=== PATIENT | female | born 1950 | race Caucasian/White ===

== ENCOUNTER → 2017-03-12 | Outpatient (CLI) | payer OTHER ==
[2017-03-12 17:59] LABS: HEPATITIS B AB NEG
== END | disposition home or self-care (01) ==
LOC: C.LAB1850 15:49
PROVIDERS: ATTEND Nurse Practitioner Family
DX: Z77.21 Contact with and (suspected) exposure to potentially hazardous body fluids (principal)

== ENCOUNTER 2017-06-19 09:07 | Emergency (ER) | payer BC, OTHER ==
[~2017-06-19] VITALS: Ht 162.6 cm; Wt 89.0 kg
[2017-06-19 09:09] VITALS: TEMP 36.4; Ht 162.6 cm; Wt 89.0 kg
[2017-06-19] MEDS ORDERED: ACETAMINOPHEN 500 MG TAB PO STA (09:24)
[2017-06-19] MEDS ORDERED: MECLIZINE HCL 25 MG TAB PO STA (09:24)
[2017-06-19 09:37] VITALS: O2SAT 96
--- NOTE | 2017-06-19 09:44 | EMERGENCY ROOM VISIT NOTE ---
History Report prepared by Nixon: Ceasar Keith Under the Supervision of: Dr. Eligio Rowland D.O. First contact with patient: 09:12 Chief Complaint: DIZZY Stated Complaint: DIZZINESS, HEADACHE, L ARM PAIN Nursing Triage Summary: c/o dizziness like the room spinning with pain in left arm and above left eye History of Present Illness The patient is a 66 year old female with a history of hypertension who presents to the Emergency Room with complaints of episodes of dizziness that started 2 days ago. She states that 2 days ago upon waking, she turned over and everything "started to move" on her, and she became very dizzy. The patient states that the dizziness went away rather quickly, but then yesterday the patient states that while at work, she bent over for a bit, and when she stood back up, she got very dizzy and lightheaded, and states that she "appeared drunk ". She notes that she had to stand up still for a while for the symptoms to go away, but afterward, she says that she had a headache. The patient states that she felt okay last night and this morning, but while she was brushing her teeth this morning, the dizziness came back. She notes that she has never had anything like this before, and has never had vertigo in the past. The patient adds that she has had some pain in her left arm today, and her head has "felt funny" the last 2 days. She notes a bit of nausea as well. The patient denies any fevers, chills or vomiting. She notes no history of TIA, stroke, or cancer. The patient does not drink alcohol or use tobacco products. Source of History: patient Onset: 2 days ago Position: other (global - dizziness) Quality: other (everything moving on her) Timing: other (episodes) Associated Symptoms: + headache, + nausea, No fevers, No chills, No vomiting Note: Associated symptoms: Lightheadedness. Head feels "funny". Review of Systems See HPI for pertinent positives & negatives. A total of 10 systems reviewed and were otherwise negative. Past Medical & Surgical Medical Problems: (1) HLD (hyperlipidemia) (2) HTN (hypertension) Family History No pertinent family history Social History Smoking Status: Never Smoker Smokeless Tobacco Use: No Alcohol Use: none Marital Status: Housing Status: lives with family Occupation Status: employed Current/Historical Medications Scheduled Atenolol (Atenolol), 25 MG PO DAILY Felodipine (Plendil), 5 MG PO DAILY Meclizine HCl (Meclizine 25), 25 MG PO Q8 Ranitidine (Zantac), 150 MG PO BID Simvastatin (Zocor), 10 MG PO QPM Allergies Coded Allergies: Lisinopril (Unverified Allergy, Unknown, ., 06/19/17) Physical Exam Vital Signs Date Time Temp Pulse Resp B/P (MAP) Pulse Ox O2 Delivery O2 Flow Rate FiO2 06/19/17 11:46 78 16 98/50 99 06/19/17 09:37 54 151/71 57 159/82 59 177/70 06/19/17 09:37 96 Room Air 06/19/17 09:33 55 06/19/17 09:09 36.4 67 16 156/73 98 Physical Exam GENERAL: Patient is awake, alert, and in no acute distress. Patient is resting comfortably and showing no signs of anxiety EYES: The conjunctivae are clear. The pupils are round and reactive. EARS, NOSE, MOUTH AND THROAT: The nose is without any evidence of any deformity. Mucous membranes are moist tongue is midline. TM's are clear bilaterally. NECK: The neck is nontender and supple. RESPIRATORY: Normal respiratory effort is noted there is no evidence of wheezing rhonchi or rales CARDIOVASCULAR: Regular rate and rhythm noted there no murmurs rubs or gallops normal S1 normal S2 GASTROINTESTINAL: The abdomen is soft. Bowel sounds are present in all quadrants. Abdomen is nontender MUSCULOSKELETAL/EXTREMITIES: There is no evidence of gross deformity full range of motion is noted in the hips and shoulders SKIN: There is no obvious evidence of any rash. There are no petechiae, pallor or cyanosis noted. NEUROLOGIC: Patient is awake alert and oriented x3 strength is symmetric patellar reflexes are 2+ bilaterally Medical Decision & Procedures ER Provider Diagnostic Interpretation: Radiology results as stated below per my review and radiologist interpretation: HEAD WITHOUT CONTRAST (CT) CT DOSE: 614.27 mGy.cm HISTORY: Mental status change EVALUATE ALTERED MENTAL STATUS/WEAKNESS TECHNIQUE: Multiaxial CT images of the head were performed without the use of intravenous contrast. A dose lowering technique was utilized adhering to the principles of ALARA. Comparison: None. Findings: The paranasal sinuses and mastoid air cells are clear. The calvarium and skull base are intact. The ventricles and sulci are within normal limits. There is no mass, hematoma, midline shift, or acute infarct. Impression: No acute intracranial abnormality. The above report was generated using voice recognition software. It may contain grammatical, syntax or spelling errors. Electronically signed by: Tristan Song M.D. 06/19/2017 9:56 AM Dictated Date/Time: 06/19/2017 9:54 AM CHEST ONE VIEW PORTABLE CLINICAL HISTORY: EVALUATE ALTERED MENTAL STATUS/WEAKNESS dyspnea COMPARISON STUDY: No previous studies for comparison. FINDINGS: The bones soft tissues and hemidiaphragms are normal. The cardiomediastinal silhouette is normal. The lungs are clear. The pulmonary vasculature is normal. IMPRESSION: Negative chest. The above report was generated using voice recognition software. It may contain grammatical, syntax or spelling errors. Electronically signed by: Tristan Song M.D. 06/19/2017 9:57 AM Dictated Date/Time: 06/19/2017 9:56 AM Laboratory Results 06/19/17 09:35 Red Blood Count 4.42, Mean Corpuscular Volume 92.3, Mean Corpuscular Hemoglobin 31.2, Mean Corpuscular Hemoglobin Concent 33.8, Mean Platelet Volume 9.7, Neutrophils (%) (Auto) 65.0, Lymphocytes (%) (Auto) 22.6, Monocytes (%) (Auto) 9.1, Eosinophils (%) (Auto) 2.2, Basophils (%) (Auto) 0.9, Neutrophils # (Auto) 2.99, Lymphocytes # (Auto) 1.04, Monocytes # (Auto) 0.42, Eosinophils # (Auto) 0.10, Basophils # (Auto) 0.04 06/19/17 09:35 Test 06/19/17 09:35 06/19/17 10:05 White Blood Count 4.60 K/uL (4.8-10.8) Red Blood Count 4.42 M/uL (4.2-5.4) Hemoglobin 13.8 g/dL (12.0-16.0) Hematocrit 40.8 % (37-47) Mean Corpuscular Volume 92.3 fL (80-100) Mean Corpuscular Hemoglobin 31.2 pg (25-34) Mean Corpuscular Hemoglobin Concent 33.8 g/dl (32-36) Platelet Count 276 K/uL (130-400) Mean Platelet Volume 9.7 fL (7.4-10.4) Neutrophils (%) (Auto) 65.0 % Lymphocytes (%) (Auto) 22.6 % Monocytes (%) (Auto) 9.1 % Eosinophils (%) (Auto) 2.2 % Basophils (%) (Auto) 0.9 % Neutrophils # (Auto) 2.99 K/uL (1.4-6.5) Lymphocytes # (Auto) 1.04 K/uL (1.2-3.4) Monocytes # (Auto) 0.42 K/uL (0.11-0.59) Eosinophils # (Auto) 0.10 K/uL (0-0.5) Basophils # (Auto) 0.04 K/uL (0-0.2) RDW Standard Deviation 42.6 fL (36.4-46.3) RDW Coefficient of Variation 12.6 % (11.5-14.5) Immature Granulocyte % (Auto) 0.2 % Immature Granulocyte # (Auto) 0.01 K/uL (0.00-0.02) Prothrombin Time 10.6 SECONDS (9.0-12.0) Prothromb Time International Ratio 1.0 (0.9-1.1) Activated Partial Thromboplast Time 27.1 SECONDS (21.0-31.0) Partial Thromboplastin Ratio 1.0 Anion Gap 6.0 mmol/L (3-11) Est Creatinine Clear Calc Drug Dose 64.0 ml/min Estimated GFR () 72.4 Estimated GFR (Non- 62.5 BUN/Creatinine Ratio 19.6 (10-20) Calcium Level 8.5 mg/dl (8.5-10.1) Magnesium Level 1.9 mg/dl (1.8-2.4) Total Bilirubin 0.4 mg/dl (0.2-1) Direct Bilirubin < 0.1 mg/dl (0-0.2) Aspartate Amino Transf (AST/SGOT) 12 U/L (15-37) Alanine Aminotransferase (ALT/SGPT) 22 U/L (12-78) Alkaline Phosphatase 70 U/L (45-117) Troponin I < 0.015 ng/ml (0-0.045) Total Protein 7.1 gm/dl (6.4-8.2) Albumin 3.5 gm/dl (3.4-5.0) Thyroid Stimulating Hormone (TSH) 4.410 uIu/ml (0.300-4.500) Urine Color YELLOW Urine Appearance CLEAR (CLEAR) Urine pH 5.5 (4.5-7.5) Urine Specific Sharon 1.023 (1.000-1.030) Urine Protein NEG (NEG) Urine Glucose (UA) NEG (NEG) Urine Ketones NEG (NEG) Urine Occult Blood NEG (NEG) Urine Nitrite NEG (NEG) Urine Bilirubin NEG (NEG) Urine Urobilinogen NEG (NEG) Urine Leukocyte Esterase SMALL (NEG) Urine WBC (Auto) 1-5 /hpf (0-5) Urine RBC (Auto) 0-4 /hpf (0-4) Urine Hyaline Casts (Auto) 1-5 /lpf (0-5) Urine Epithelial Cells (Auto) >30 /lpf (0-5) Urine Bacteria (Auto) NEG (NEG) Laboratory results per my review. Medications Administered Medications (Trade) Dose Ordered Sig/Nolvia Route Start Time Stop Time Status Last Admin Dose Admin Meclizine HCl (Antivert Tab) 25 mg NOW STAT PO 06/19/17 09:24 06/19/17 09:25 DC 06/19/17 09:46 25 MG Acetaminophen (Tylenol Tab) 1,000 mg NOW STAT PO 06/19/17 09:24 06/19/17 09:25 DC 06/19/17 09:46 1,000 MG ECG Indication: nausea Rate (beats per minute): 53 Rhythm: sinus bradycardia Findings: no ectopy, other (no acute ST segment abnormalities) Change: no significant change (from 06/23/09) ED Course 0918: The patient was evaluated in room B12B. A complete history and physical examination were performed. 0924: Ordered Tylenol Tab 1000 mg PO, Antivert Tab 25 mg PO. 1041: I reevaluated and updated the patient. 1126: Upon reevaluation, the patient is resting comfortably. I discussed the results and treatment plan with her. She verbalized agreement of the treatment plan. She was discharged home. Medical Decision Differential diagnosis: Etiologies such as benign positional vertigo, dehydration, hypovolemia, anemia, tumor, infection, hypoglycemia, electrolyte abnormalities, cardiac sources, intracerebral event, toxicologic, neurologic, as well as others were entertained. Nursing notes reviewed. The patient is a 66-year-old female who presented to the emergency department for an evaluation of dizziness. The patient appears to have a history physical exam consistent with vertigo. The patient did not have any focal neurologic deficit. She was treated with meclizine and Tylenol in the emergency department. She was reevaluated multiple times. I discussed the patient's laboratory and radiographic studies with her. She was encouraged to rest and avoid any strenuous activity. She was also encouraged to follow-up with her primary care physician as soon as possible. She was also encouraged to discuss the possibility that she may require further neuroimaging or possibly a referral to an ear nose and throat physician if symptoms do not improve otherwise she was encouraged to return to the emergency department immediately if symptoms change worsen or the need arises. Medication Reconcilliation Current Medication List: was personally reviewed by me Blood Pressure Screening Patient's blood pressure: Elevated blood pressure Blood pressure disposition: Elevated BP felt to be situational Impression Primary Impression: Vertigo Scribe Attestation The scribe's documentation has been prepared under my direction and personally reviewed by me in its entirety. I confirm that the note above accurately reflects all work, treatment, procedures, and medical decision making performed by me. Departure Information Dispostion Home / Self-Care Prescriptions Meclizine HCl (Meclizine 25) 25 Mg Tab 25 MG PO Q8 for Dizziness or Vertigo, #25 TABS Prov: Eligio Rowland, DO 06/19/17 Referrals No Doctor, Assigned (PCP) Wendy Clay D.O. Patient Instructions ED Vertigo Unspecified, My [facility] Additional Instructions Continue all medications as prescribed. Rest and avoid any strenuous activity. Call your family to schedule a follow-up appointment. You may require further studies such as an MRI or referral to an ear nose and throat physician to further evaluate causes her symptoms. Return to the emergency Department immediately if symptoms change worsen or the need arises.
[2017-06-19] MEDS ORDERED: SIMV10TA2 PO (09:45)
[2017-06-19] MEDS ORDERED: FELO5TAB PO (09:45)
[2017-06-19] MEDS ORDERED: TNR25 PO (09:45)
[2017-06-19] MEDS ORDERED: ZNTT/150 PO (09:45)
[2017-06-19 09:51] LABS: BASO % 0.9 %; BASO ABS # 0.04 K/uL (0-0.2); EOS % 2.2 %; HEMATOCRIT 40.8 % (37-47); HEMOGLOBIN 13.8 g/dL (12.0-16.0); IG# 0.01 K/uL (0.00-0.02); LYMPH % 22.6 %; LYMPH ABS # 1.04 K/uL (1.2-3.4); MEAN CELL VOLUME 92.3 fL (80-100); MEAN CORPUSCULAR HEMOGLOBIN 31.2 pg (25-34); MEAN CORPUSCULAR HGB CONC 33.8 g/dl (32-36); MEAN PLATELET VOLUME 9.7 fL (7.4-10.4); MONO % 9.1 %; MONO ABS # 0.42 K/uL (0.11-0.59); NEUT ABS # 2.99 K/uL (1.4-6.5); PLATELET COUNT 276 K/uL (130-400); RED CELL DISTRIBUTION WIDTH CV 12.6 % (11.5-14.5); RED CELL DISTRIBUTION WIDTH SD 42.6 fL (36.4-46.3)
--- NOTE | 2017-06-19 09:57 | DIAGNOSTIC IMAGING REPORT ---
HEAD WITHOUT CONTRAST (CT) CT DOSE: 614.27 mGy.cm HISTORY: Mental status change EVALUATE ALTERED MENTAL STATUS/WEAKNESS TECHNIQUE: Multiaxial CT images of the head were performed without the use of intravenous contrast. A dose lowering technique was utilized adhering to the principles of ALARA. Comparison: None. Findings: The paranasal sinuses and mastoid air cells are clear. The calvarium and skull base are intact. The ventricles and sulci are within normal limits. There is no mass, hematoma, midline shift, or acute infarct. Impression: No acute intracranial abnormality. The above report was generated using voice recognition software. It may contain grammatical, syntax or spelling errors. Electronically signed by: Tristan Song M.D. 06/19/2017 9:56 AM Dictated Date/Time: 06/19/2017 9:54 AM
--- NOTE | 2017-06-19 09:58 | DIAGNOSTIC IMAGING REPORT ---
CHEST ONE VIEW PORTABLE CLINICAL HISTORY: EVALUATE ALTERED MENTAL STATUS/WEAKNESS dyspnea COMPARISON STUDY: No previous studies for comparison. FINDINGS: The bones soft tissues and hemidiaphragms are normal. The cardiomediastinal silhouette is normal. The lungs are clear. The pulmonary vasculature is normal. IMPRESSION: Negative chest. The above report was generated using voice recognition software. It may contain grammatical, syntax or spelling errors. Electronically signed by: Tristan Song M.D. 06/19/2017 9:57 AM Dictated Date/Time: 06/19/2017 9:56 AM
[2017-06-19 10:02] LABS: PTT PATIENT 27.1 SECONDS (21.0-31.0)
[2017-06-19 10:04] LABS: ALBUMIN 3.5 gm/dl (3.4-5.0); ALT/SGPT 22 U/L (12-78); AST/SGOT 12 U/L (15-37); BLOOD UREA NITROGEN 19 mg/dl (7-18); CALCIUM 8.5 mg/dl (8.5-10.1); CARBON DIOXIDE 25 mmol/L (21-32); CREATININE 0.96 mg/dl (0.60-1.20); GLUCOSE 88 mg/dl (70-99); POTASSIUM 3.7 mmol/L (3.5-5.1); SODIUM 142 mmol/L (136-145)
[2017-06-19 10:15] LABS: ALKALINE PHOSPHATASE 70 U/L (45-117); TOTAL PROTEIN 7.1 gm/dl (6.4-8.2)
[2017-06-19] MEDS ORDERED: MECL-91 PO (11:21)
[2017-06-19 11:46] VITALS: BP 98/50; PULSE 78; O2SAT 99
== END 2017-06-19 11:47 | disposition home or self-care (01) ==
LOC: C.EDB 09:08
DX: R42 Dizziness and giddiness (principal); I10 Essential (primary) hypertension; E78.5 Hyperlipidemia, unspecified

== ENCOUNTER 2023-02-18 10:07 | Observation (INO) ==
[2023-02-18] MEDS ORDERED: IOVERSOL 350 MG 125mL Prefilled Syringe IV ONE (10:34)
[2023-02-18 10:37] LABS: iSTAT Ionized Calcium 1.19 mmol/l (1.12-1.32)
--- NOTE | 2023-02-18 10:51 | CT Scan Report ---
CT angio head w con, CT angio neck with con, CT head/brain wo con CLINICAL HISTORY: 72 years-old Female with neuro deficit, acute stroke suspected. Acute stroke sym ptoms COMPARISON STUDY: 06/19/2017 TECHNIQUE: Unenhanced axial CT scan of the brain is performed. Subsequently, following the IV adminis tration of 120 cc of Optiray, CT angiogram of the head and neck was performed from the skull base to the vertex. Images are reviewed in the axial, sagittal, and coronal planes. 3-D MIPS images are creat ed and assessed. IV contrast was administered without complication. All measurements were obtained ac cording to NASCET criteria. A dose lowering technique was utilized adhering to the principles of JOSH Sanabria. CT DOSE: 1118.93 mGy.cm FINDINGS: CT BRAIN: There is no acute intracranial hemorrhage, midline shift, hydrocephalus, intracranial mass, territori al ischemia or abnormal extra-axial collections. No abnormal intra-axial or extra-axial enhancement. Calcifications of the falx cerebri. Mastoid air cells and middle ear cavities are clear. No calvaria l fracture. Paranasal sinuses are clear. CT ANGIOGRAM OF THE HEAD AND NECK: Three-vessel morphology of the thoracic aorta and heart. There is patency of the innominate and image subclavian arteries. The common carotid arteries are patent. Moderate atherosclerosis of the carotid bulbs results in less than 50% stenosis bilaterally. The internal carotid arteries are patent. The b ilateral anterior and middle cerebral arteries are also patent. Developmentally diminutive right A1 s egment. Dominant and widely patent left vertebral artery. The right vertebral artery is also patent. There is no aneurysm, high-grade stenosis, or proximal branch occlusion identified. Dural sinuses kathryn ear patent. The lung apices. Unremarkable soft tissues. Atrophic submandibular and parotid glands. Multilevel deg enerative changes of the cervical spine. IMPRESSION: 1. No acute intracranial abnormality. 2. Unremarkable CTA of the head and neck. ACT 112: Negative or not required by law. The above report was generated using voice recognition software. It may contain grammatical, syntax o r spelling errors. Electronically signed by: Karthikeyan Richardson M.D. 02/18/2023 10:50 AM
[2023-02-18 10:54] LABS: Basophils # (auto) 0.05 K/uL (0.00-0.20); Basophils % (auto) 0.9 %; Eosinophils # (auto) 0.15 K/uL (0.00-0.50); Eosinophils % (auto) 2.6 %; Hemoglobin 15.2 g/dl (12.0-16.0); Immature Granulocytes # (auto) 0.02 K/uL (0.01-0.20); Immature Granulocytes % (auto) 0.3 %; Lymphocytes # (auto) 1.17 K/uL (1.20-3.40); Lymphocytes % (auto) 20.3 %; Mean Corpuscular Hemoglobin 30.6 pg (25.0-34.0); Mean Corpuscular Hgb Conc 33.8 g/dL (32.0-36.0); Mean Corpuscular Volume 90.5 fL (80.0-100.0); Mean Platelet Volume 9.6 fL (9.4-12.4); Monocytes # (auto) 0.46 K/uL (0.11-0.59); Neutrophils % (auto) 67.9 %; Platelet Count 351 K/uL (130-400); RDW Coefficient of Variation 12.3 % (11.5-14.5); RDW Standard Deviation 40.6 fL (36.4-46.3); Red Blood Count 4.97 M/uL (4.20-5.40); White Blood Count 5.75 K/ul (4.8-10.8)
[2023-02-18 11:01] LABS: INR 0.9 (0.9-1.1); Partial Thromboplastin Time 26.8 Seconds (21.0-31.0); Prothrombin Time 10.4 Seconds (9.0-12.0)
--- NOTE | 2023-02-18 11:03 | XRay Report ---
XR chest 1V portable HISTORY: 72 years-old Female neuro deficit, acute stroke suspected acute strokelike symptoms COMPARISON: 06/19/2017 TECHNIQUE: AP view of the chest FINDINGS: Cardiac silhouette is mildly enlarged. Mild right hemidiaphragmatic elevation. No pneumothorax, pleur al effusion, airspace consolidation or pulmonary edema. Degenerative changes of the shoulders and spi ne. IMPRESSION: No acute process. ACT 112: Negative or not required by law. The above report was generated using voice recognition software. It may contain grammatical, syntax o r spelling errors. Electronically signed by: Karthikeyan Richardson M.D. 02/18/2023 11:02 AM
[2023-02-18 11:15] LABS: Albumin Globulin Ratio 1.4 (0.9-2); Albumin Level 4.9 gm/dl (3.4-5.0); BUN Creatinine Ratio 17.4 (10-20); Bilirubin,Total 0.6 mg/dl (0.2-1.0); Calcium 9.6 mg/dl (8.6-10.3); Creatinine Clr Calc Pharmacy 64.3 ml/min; Est GFR (African American) 73.1 ml/min; Est GFR (Non-African American) 63.1 ml/min; Globulin 3.6 gm/dl (2.5-4.0); Magnesium 1.8 mg/dl (1.7-2.4); Total Protein 8.5 gm/dl (6.0-8.3)
[2023-02-18 11:18] LABS: Troponin I High Sensitivity 4.1 pg/ml (0-14)
[2023-02-18] MEDS ORDERED: CLOPIDOGREL BISULFATE 75 MG TAB PO ONE (11:19)
[2023-02-18] MEDS: ASPIRIN CHEW 324 MG PO STA ×2 (11:48→11:51)
[2023-02-18] MEDS: SODIUM CHLORIDE 0.9% 1,000 ML IV SCH ×2 (11:52→20:02)
--- NOTE | 2023-02-18 12:24 | History & Physical Report ---
Date of Service February 18, 2023 Assessment & Plan (1) Stroke-like symptoms: Plan: This is a 72 y/o female with hypertension, hyperlipidemia, GERD, and Sjogren's who presents to the ED today with transient tingling and numbness in the left side. Neuro symptoms all seem to be sensory with no motor effects and are slowly resolving though not yet resolved. She denies prior similar episodes although was on Plavix previously several years ago for question of prior CVA although pt denies symptoms. Stroke alert was called in the ED and TPA was not indicated by tele-neurologist did recommend admission for observation overnight and additional work-up. - Observe in PCU overnight - Check ECHO - MRI brain - Consult neurology - Dual anti-platelet therapy with aspirin/plavix started per tele-neuro recommendations - Lipid panel, A1c in AM - Neuro checks - Since no motor deficits or dysphagia, will defer PT/OT/Speech for now (2) HTN (hypertension): (3) HLD (hyperlipidemia): (4) Sjogren syndrome with dental involvement: (5) GERD (gastroesophageal reflux disease): Plan Continue other home medications as appropriate Pt seen and reviewed with collaborating physician, Dr. Waters. Plan of care discussed and as outlined above. Code Status: Full Code DVT Prophylaxis: Gail Ann PA-C History of Present Illness Chief Complaint: Left sided face and left arm tingling Primary Care Provider: Wendy Clay DO This is a 72 yo F with history of HTN, hyperlipidemia, GERD, and Sjogren syndrome who presented to the ED this morning at about 10:30 am for evaluation of left sided tingling. She states that while she was kneeling on her L knee at temple at 08:30 am she noticed shooting pain in the knee and calf that then radiated proximally in the leg. The pain quickly resolved but was immediately replaced by a tingling sensation that moved to the entire L arm and L side of her face. Talked to her daughter who is a nurse, who thought the symptoms were concerning, prompting her to go to the ED. These symptoms continued for 2-3 hours but then gradually started to improve. At the time of my evaluation, most symptoms have resolved however the L hand continues to feel "off", she states that it doesn't quite feel like the R in terms of sensation and tingling. Denies dysphagia, trouble speaking, numbness, facial droop, one-sided weakness, trouble walking, confusion, syncope, chest pain, palpitations, shortness of breath, abdominal pain, N/V/D, or anything like this ever happening before. Of note, she was prescribed Plavix over 10-20 years ago though she does not know why it was prescribed or discontinued but thinks it was related to a question of a prior stroke seen on imaging. Allergies Allergy/AdvReac Type Severity Reaction Status Date / Time lisinopril Allergy Unknown Cough Verified 02/18/23 13:11 Home Medications Medication Instructions Recorded Confirmed Type atenolol 25 mg tablet 25 mg PO DAILY 02/18/23 02/18/23 History felodipine 5 mg tablet,extended 5 mg PO HS 02/18/23 02/18/23 History release 24 hr omeprazole 20 mg capsule,delayed 20 mg PO DAILY 02/18/23 02/18/23 History release simvastatin 10 mg tablet 10 mg PO HS 02/18/23 02/18/23 History Past Med/Surg History Medical History Anxiety GERD (gastroesophageal reflux disease) Gout HLD (hyperlipidemia) HTN (hypertension) Sjogren syndrome with dental involvement Surgical History History of cholecystectomy S/P right knee arthroscopy S/P tonsillectomy and adenoidectomy Family History Other Alzheimer disease Breast cancer Diabetes Heart disease Social History Smoking Status: Never smoker Second Hand Exposure: No; Do You Dip or Chew Tobacco: No; Hx Alcohol Use: No Hx Substance Use: No Preferred Language: Lithuanian Communication Ability: Effective Social Sciences Professor Required: No Beliefs That Will Affect Care: None Current Living Situation: Spouse Other Information That Helps Us Care for You: No Feels Safe at Home: Yes Safety Concerns: Feels Safe At This Time Assistive Devices: None Review of Systems Review of Systems: All systems reviewed & are unremarkable except as noted in HPI & below Eyes: no diplopia and no worsening vision Ear, Nose, Mouth, Throat: no dysphagia Respiratory: no cough and no dyspnea Cardiovascular: no chest pain, no palpitations, no syncope and no edema Gastrointestinal: no abdominal pain, no nausea, no vomiting and no diarrhea/loose stools Genitourinary: no dysuria and no hematuria Musculoskeletal: no back pain and no neck pain Integumentary: no yellowing of the skin Neurologic: as per Subjective / HPI Psychiatric: no depression and no anxiety Physical Exam Constitutional: well developed and well nourished; no acute distress Eyes: PERRL, conjunctivae normal, anicteric sclerae ENMT: external ear and nose normal, oropharynx normal Neck: trachea midline Respiratory: no respiratory distress and no labored breathing Auscultation: lungs clear to auscultation bilaterally; no rales, no rhonchi and no wheezes Cardiovascular: Rate/Rhythm: regular rate and regular rhythm Vessels: radial pulses present Extremities: no pedal edema Gastrointestinal (Abdomen): Inspection/Auscultation: normal bowel sounds; abdomen not distended Percussion/Palpation: abdomen soft; abdomen nontender Musculoskeletal: Head/Neck/Chest: normocephalic, head atraumatic and neck supple Skin: no jaundice Neurologic: moves all extremities; not confused Speech / Cognition: normal speech and no expressive aphasia Motor/Sensory: no tremor, no fasciculations and no asterixis Cranial Nerves: PERRL, normal accommodation, EOM intact bilaterally, normal facial strength, tongue midline, able to rotate head bilater ally, able to elevate shoulders bilaterally and no nystagmus Psychiatric: A+Ox3, euthymic affect Results & Data Results & Data Vital Signs (Past 12 Hours) Vital Signs Temp Pulse Pulse Resp BP BP Pulse Ox 02/18/23 12:05 61 17 161/76 H 99 02/18/23 11:17 72 19 176/69 H 95 02/18/23 11:01 59 L 22 165/100 H 02/18/23 10:50 57 L 15 149/96 H 97 02/18/23 10:47 60 19 02/18/23 10:09 36.4 C L 65 18 163/88 H 97 O2 Del Method 02/18/23 12:05 02/18/23 11:17 02/18/23 11:01 02/18/23 10:50 02/18/23 10:47 02/18/23 10:09 Room Air Laboratory Results Laboratory Results - last 24 hr 02/18/23 02/18/23 02/18/23 10:20 10:20 10:20 WBC 5.75 RBC 4.97 Hgb 15.2 POC Hgb Hct 45.0 POC Hct MCV 90.5 MCH 30.6 MCHC 33.8 RDW Std Deviation 40.6 RDW Coeff of Vicky 12.3 Plt Count 351 MPV 9.6 Immature Gran % (Auto) 0.3 Neut % (Auto) 67.9 Lymph % (Auto) 20.3 Barber % (Auto) 8.0 Eos % (Auto) 2.6 Baso % (Auto) 0.9 Neut # (Auto) 3.90 Lymph # (Auto) 1.17 L Barber # (Auto) 0.46 Eos # (Auto) 0.15 Baso # (Auto) 0.05 Immature Gran # (Auto) 0.02 PT 10.4 INR 0.9 APTT 26.8 PTT Ratio 1.0 POC Sodium Sodium 140 POC Potassium Potassium 4.0 POC Chloride Chloride 104 Carbon Dioxide 27 POC Total CO2 Anion Gap 9 POC Anion Gap POC BUN BUN 16 Creatinine 0.92 POC Creatinine Est Cr Clr Drug Dosing 64.3 Est GFR ( Amer) 73.1 Est GFR (Non-Af Amer) 63.1 BUN/Creatinine Ratio 17.4 Glucose 101 H POC Glucose (other) Calcium 9.6 POC Ioniz Calcium Nam Magnesium 1.8 Total Bilirubin 0.6 AST 19 ALT 19 Alkaline Phosphatase 79 Troponin I High Sens 4.1 Total Protein 8.5 H Albumin 4.9 Globulin 3.6 Albumin/Globulin Ratio 1.4 Blood Type Antibody Screen 02/18/23 02/18/23 10:25 10:41 WBC RBC Hgb POC Hgb 16.0 Hct POC Hct 47 MCV MCH MCHC RDW Std Deviation RDW Coeff of Vicky Plt Count MPV Immature Gran % (Auto) Neut % (Auto) Lymph % (Auto) Barber % (Auto) Eos % (Auto) Baso % (Auto) Neut # (Auto) Lymph # (Auto) Barber # (Auto) Eos # (Auto) Baso # (Auto) Immature Gran # (Auto) PT INR APTT PTT Ratio POC Sodium 141 Sodium POC Potassium 4.0 Potassium POC Chloride 104 Chloride Carbon Dioxide POC Total CO2 25 Anion Gap POC Anion Gap 17.0 POC BUN 16 BUN Creatinine POC Creatinine 1.0 Est Cr Clr Drug Dosing Est GFR ( Amer) Est GFR (Non-Af Amer) BUN/Creatinine Ratio Glucose POC Glucose (other) 108 H Calcium POC Ioniz Calcium Nam 1.19 Magnesium Total Bilirubin AST ALT Alkaline Phosphatase Troponin I High Sens Total Protein Albumin Globulin Albumin/Globulin Ratio Blood Type A Positive Antibody Screen NEGATIVE Diagnostic Findings Chest X-Ray 02/18/23 10:15 XR chest 1V portable HISTORY: 72 years-old Female neuro deficit, acute stroke suspected acute strokelike symptoms COMPARISON: 06/19/2017 TECHNIQUE: AP view of the chest FINDINGS: Cardiac silhouette is mildly enlarged. Mild right hemidiaphragmatic elevation. No pneumothorax, pleural effusion, airspace consolidation or pulmonary edema. Degenerative changes of the shoulders and spine. IMPRESSION: No acute process. ACT 112: Negative or not required by law. The above report was generated using voice recognition software. It may contain grammatical, syntax or spelling errors. Electronically signed by: Karthikeyan Richardson M.D. 02/18/2023 11:[address] 02/18/23 10:15 CT angio head w con, CT angio neck with con, CT head/brain wo con CLINICAL HISTORY: 72 years-old Female with neuro deficit, acute stroke suspected. Acute stroke symptoms COMPARISON STUDY: 06/19/2017 TECHNIQUE: Unenhanced axial CT scan of the brain is performed. Subsequently, following the IV administration of 120 cc of Optiray, CT angiogram of the head and neck was performed from the skull base to the vertex. Images are reviewed in the axial, sagittal, and coronal planes. 3-D MIPS images are created and assessed. IV contrast was administered without complication. All measurements were obtained according to NASCET criteria. A dose lowering technique was utilized adhering to the principles of ALARA. CT DOSE: 1118.93 mGy.cm FINDINGS: CT BRAIN: There is no acute intracranial hemorrhage, midline shift, hydrocephalus, intracranial mass, territorial ischemia or abnormal extra-axial collections. No abnormal intra-axial or extra-axial enhancement. Calcifications of the falx cerebri. Mastoid air cells and middle ear cavities are clear. No calvarial fracture. Paranasal sinuses are clear. CT ANGIOGRAM OF THE HEAD AND NECK: Three-vessel morphology of the thoracic aorta and heart. There is patency of the innominate and image subclavian arteries. The common carotid arteries are patent. Moderate atherosclerosis of the carotid bulbs results in less than 50% stenosis bilaterally. The internal carotid arteries are patent. The bilateral anterior and middle cerebral arteries are also patent. Developmentally diminutive right A1 segment. Dominant and widely patent left vertebral artery. The right vertebral artery is also patent. There is no aneurysm, high-grade stenosis, or proximal branch occlusion identified. Dural sinuses appear patent. The lung apices. Unremarkable soft tissues. Atrophic submandibular and parotid glands. Multilevel degenerative changes of the cervical spine. IMPRESSION: 1. No acute intracranial abnormality. 2. Unremarkable CTA of the head and neck. ACT 112: Negative or not required by law. The above report was generated using voice recognition software. It may contain grammatical, syntax or spelling errors. Electronically signed by: Karthikeyan Richardson M.D. 02/18/2023 10:50 AM Head CTA 02/18/23 10:15 CT angio head w con, CT angio neck with con, CT head/brain wo con CLINICAL HISTORY: 72 years-old Female with neuro deficit, acute stroke suspected. Acute stroke symptoms COMPARISON STUDY: 06/19/2017 TECHNIQUE: Unenhanced axial CT scan of the brain is performed. Subsequently, following the IV administration of 120 cc of Optiray, CT angiogram of the head and neck was performed from the skull base to the vertex. Images are reviewed in the axial, sagittal, and coronal planes. 3-D MIPS images are created and assessed. IV contrast was administered without complication. All measurements were obtained according to NASCET criteria. A dose lowering technique was utilized adhering to the principles of ALARA. CT DOSE: 1118.93 mGy.cm FINDINGS: CT BRAIN: There is no acute intracranial hemorrhage, midline shift, hydrocephalus, intracranial mass, territorial ischemia or abnormal extra-axial collections. No abnormal intra-axial or extra-axial enhancement. Calcifications of the falx cerebri. Mastoid air cells and middle ear cavities are clear. No calvarial fracture. Paranasal sinuses are clear. CT ANGIOGRAM OF THE HEAD AND NECK: Three-vessel morphology of the thoracic aorta and heart. There is patency of the innominate and image subclavian arteries. The common carotid arteries are patent. Moderate atherosclerosis of the carotid bulbs results in less than 50% stenosis bilaterally. The internal carotid arteries are patent. The bilateral anterior and middle cerebral arteries are also patent. Developmentally diminutive right A1 segment. Dominant and widely patent left vertebral artery. The right vertebral artery is also patent. There is no aneurysm, high-grade stenosis, or proximal branch occlusion identified. Dural sinuses appear patent. The lung apices. Unremarkable soft tissues. Atrophic submandibular and parotid glands. Multilevel degenerative changes of the cervical spine. IMPRESSION: 1. No acute intracranial abnormality. 2. Unremarkable CTA of the head and neck. ACT 112: Negative or not required by law. The above report was generated using voice recognition software. It may contain grammatical, syntax or spelling errors. Electronically signed by: Karthikeyan Richardson M.D. 02/18/2023 10:50 AM Neck CTA 02/18/23 10:15 CT angio head w con, CT angio neck with con, CT head/brain wo con CLINICAL HISTORY: 72 years-old Female with neuro deficit, acute stroke suspected. Acute stroke symptoms COMPARISON STUDY: 06/19/2017 TECHNIQUE: Unenhanced axial CT scan of the brain is performed. Subsequently, following the IV administration of 120 cc of Optiray, CT angiogram of the head and neck was performed from the skull base to the vertex. Images are reviewed in the axial, sagittal, and coronal planes. 3-D MIPS images are created and assessed. IV contrast was administered without complication. All measurements were obtained according to NASCET criteria. A dose lowering technique was utilized adhering to the principles of ALARA. CT DOSE: 1118.93 mGy.cm FINDINGS: CT BRAIN: There is no acute intracranial hemorrhage, midline shift, hydrocephalus, intracranial mass, territorial ischemia or abnormal extra-axial collections. No abnormal intra-axial or extra-axial enhancement. Calcifications of the falx cerebri. Mastoid air cells and middle ear cavities are clear. No calvarial fracture. Paranasal sinuses are clear. CT ANGIOGRAM OF THE HEAD AND NECK: Three-vessel morphology of the thoracic aorta and heart. There is patency of the innominate and image subclavian arteries. The common carotid arteries are patent. Moderate atherosclerosis of the carotid bulbs results in less than 50% stenosis bilaterally. The internal carotid arteries are patent. The bilateral anterior and middle cerebral arteries are also patent. Developmentally diminutive right A1 segment. Dominant and widely patent left vertebral artery. The right vertebral artery is also patent. There is no aneurysm, high-grade stenosis, or proximal branch occlusion identified. Dural sinuses appear patent. The lung apices. Unremarkable soft tissues. Atrophic submandibular and parotid glands. Multilevel degenerative changes of the cervical spine. IMPRESSION: 1. No acute intracranial abnormality. 2. Unremarkable CTA of the head and neck. ACT 112: Negative or not required by law. The above report was generated using voice recognition software. It may contain grammatical, syntax or spelling errors. Electronically signed by: Karthikeyan Richardson M.D. 02/18/2023 10:50 AM Medications Administered Sodium Chloride (Nss) 1,000 mls @ 50 mls/hr IV .Q20H HEENA Stop: 03/20/23 10:14 Last Admin: 02/18/23 11:52 Dose: 50 mls/hr Documented By: HUGH Discontinued Medications Aspirin (Aspirin Chew 324 Mg) 324 mg PO NOW STA Stop: 02/18/23 11:20 Last Admin: 02/18/23 11:51 Dose: Not Given Documented By: HUGH Clopidogrel Bisulfate (Clopidogrel Bisulfate 75 Mg Tab) 75 mg PO NOW ONE Stop: 02/18/23 11:20 Last Admin: 02/18/23 11:48 Dose: 75 mg Documented By: HUGH Supervising Physician Co-Signing Physician Notes Pt seen and examined by myself, Gabbie Waters MD on the day of service. Care was coordinated with Amara Ann PA-C. 72yoF admitted with concern for TIA/stroke after having persistent left sided paraesthesias in her left hand (spares only the thumb) and left side of face. States it started in the left lower extremity before spreading up. No longer having pain in the left lower extremity. Tinel and Phalen sign negative on exam. Head CT, head and neck CTA all unremarkable. Brain MRI pending at time of admission. Stroke workup, appreciate recs of teleneurology for DAPT. Otherwise as above.
[2023-02-18] MEDS ORDERED: LORazepam 0.5 MG TAB PO ONE (13:16)
[2023-02-18 14:36] LABS: Appearance Urine Clear (Clear); Bilirubin Urine Negative (Negative); Blood Urine Negative (Negative); Color Urine Yellow; Glucose Urine UA Negative (Negative); Ketones Urine Negative (Negative); Leukocyte Esterase Urine Negative (Negative); Nitrite Urine Negative (Negative); Protein Urine Negative (Negative); Specific Gravity Urine 1.034 (1.000-1.030); Urobilinogen Urine Negative (Negative)
--- NOTE | 2023-02-18 17:18 | Emergency Department Note ---
Impression & Plan Stroke-like symptoms ED Provider Note INFORMANT: Patient ED PROVIDER(S): Phill Giles MD CHIEF COMPLAINT: Strokelike symptoms PLAN: Disposition: Admitted Condition: Good Outpatient prescription management: none Referral: None MEDICAL DECISION MAKING: Patient presented because of strokelike symptoms. She was evaluated shortly after arrival had a period of high volume and high acuity. She was taken emergently to CT imaging and a stroke alert was initiated by me. She had unremarkable laboratory testing. CT imaging including angiography did not reveal any acute findings. EKG did not reveal any acute ischemia. A telestroke consult was placed with Dr. Bardales at [facility]. The case was discussed and diagnostics were reviewed. Given the patient's NIH stroke scale is 1 at this time tPA/TNK was not recommended. Patient was evaluated by telestroke. She did recommend dual antiplatelet therapy with aspirin and Plavix. Patient did take aspirin today, 2. Also medical stroke work-up was recommended. [facility] Patient was evaluated in the ER admitted for further management. Discussed with manager nuclear After review of the information above and other included data, I feel the patient requires admission. Triage Nursing notes reviewed and agree them. Vital Signs: reviewed and remarkable for mild hypertension Prior /Outside records reviewed: none Differential diagnosis: TIA, CVA,Infection, dehydration, metabolic abnormality, hypo/hyperglycemia, electrolyte disturbance, anemia, hypoxia, cardiac sources, intracerebral event, toxicologic, neurologic, as well as other pathologies. Diagnostics, as interpreted by me: ECG: Twelve-lead ECG reveals a sinus bradycardia 50 bpm. Poor R wave progression. LVH. No ST depression or T wave inversion. Cardiac Monitoring: Cardiac monitoring ordered by me: The patient was placed on continuous cardiac monitoring and observed. It revealed a sinus bradycardia at 51 beats per minute without ectopy or evidence of dysrhythmia. Medical decision rules: none Imaging studies: CT and CT angiography as above. Chest x-ray. Findings: A chest x-ray was performed and revealed no pneumothorax, effusion, infiltrate, pulmonary edema, free air under the diaphragm, or wide mediastinum. Impression: No acute disease. HPI: The patient is a 72year old female who presents to the Emergency Room with complaints of strokelike symptoms. This started about 0830 this morning and is persisting. She notes a numbness sensation in the left jaw area as well as the left arm. The patient also notes the following associated symptoms, transient cramping in the left calf. Patient states that she was kneeling at [place] and felt a cramp performed in her left calf. She got up to stretch and noticed pain that shot up the left leg. She then suddenly developed tingling in the left arm as well as the left lower face. No prior history of the same tingling type sensations but does note leg cramping at night chronically. The patient has taken no medication for relieving factors. Current pain is rated as 0/10. Pt denies LOC, headache, fevers, chills, diaphoresis, visual changes, neck pain, chest pain, breathing difficulties, nausea, vomiting, abdominal pain, back pain, melena, hematochezia, urinary symptoms, weakness, lymphadenopathy, rash, or other complaints. PAST MEDICAL HISTORY: See Below, GERD, hypertension PAST SURGICAL HISTORY: See Below, SOCIAL HISTORY:See below, non-smoker HOME MEDICATIONS: See Below ALLERGIES: See Below VITALS: See Below PHYSICAL EXAMINATION: GENERAL: Awake, alert, well appearing, no distress HENT: Normocephalic, atraumatic. Oropharynx unremarkable. EYES: PERRL. EOMI. Normal conjunctiva. Sclera non-icteric. NECK: Supple. Normal inspection. Non-tender. No nuchal rigidity. FROM. No bruit. RESPIRATORY: Breath sounds equal. No wheezes. No rhonchi. Normal respiratory effort. CARDIAC: Normal rate. Regular rhythm. No murmurs. No rubs. No JVD. GI: Soft, non distended. No tenderness to palpation. No rebound or guarding. No masses. RECTAL: Deferred. MUSCULOSKELETAL: Unremarkable. No edema. No discoloration. Gross motor strength symmetric. NEURO: Cranial nerves 2-12 grossly intact. Normal sensorium. No sensory or motor deficits noted except for subjective tingling in the 3 dermatome on the left face as well as the entire left upper extremity.. Speech normal. No pronator drift. Normal rapid alternating movements. SKIN: No rash or jaundice noted. LYMPH: No adenopathy. Past Med/Surg History Medical History Anxiety GERD (gastroesophageal reflux disease) Gout HLD (hyperlipidemia) HTN (hypertension) Sjogren syndrome with dental involvement Surgical History History of cholecystectomy S/P right knee arthroscopy S/P tonsillectomy and adenoidectomy Family History Other Alzheimer disease Breast cancer Diabetes Heart disease Social History Smoking Status: Never smoker Hx Alcohol Use: No Hx Substance Use: No Feels Safe at Home: Yes Allergies Allergies Allergy/AdvReac Type Severity Reaction Status Date / Time lisinopril Allergy Unknown Cough Verified 02/18/23 13:11 Home Meds Home Medications Medication Instructions Recorded Confirmed atenolol 25 mg tablet 25 mg PO DAILY 02/18/23 02/18/23 felodipine 5 mg tablet,extended 5 mg PO HS 02/18/23 02/18/23 release 24 hr omeprazole 20 mg capsule,delayed 20 mg PO DAILY 02/18/23 02/18/23 release simvastatin 10 mg tablet 10 mg PO HS 02/18/23 02/18/23 Results & Data (ED) Vital Signs Vital Signs - 24 hr 02/18/23 10:09 02/18/23 10:47 02/18/23 10:50 Temperature 36.4 C L Temperature Source Temporal Artery Scan Pulse Rate 65 60 57 L Pulse Rate [Apical] Pulse Rate from SpO2 Sensor Pulse Rhythm [Apical] Pulse Strength [Apical] Respiratory Rate 18 19 15 Respiratory Effort / Characteristics Non-Labored Respiratory Depth Normal Respiratory Pattern Blood Pressure 163/88 H 149/96 H Blood Pressure [Right Arm] Blood Pressure Mean 113 113 Blood Pressure Mean [Right Arm] Blood Pressure Position Sitting Blood Pressure Position [Right Arm] Pulse Oximetry 97 97 Oxygen Delivery Method Room Air Sepsis Recent Fever Within 48 Hours No Sepsis New/Unexplained Change in Mental Status No Sepsis Action Taken by Nursing No Action Required 02/18/23 11:01 02/18/23 11:17 02/18/23 12:05 Temperature Temperature Source Pulse Rate 59 L 72 Pulse Rate [Apical] 61 Pulse Rate from SpO2 Sensor 56 L Pulse Rhythm [Apical] Regular Pulse Strength [Apical] Normal Respiratory Rate 22 19 17 Respiratory Effort / Characteristics Non-Labored Spontaneous Respiratory Depth Normal Respiratory Pattern Regular Blood Pressure 165/100 H 176/69 H Blood Pressure [Right Arm] 161/76 H Blood Pressure Mean 121 104 Blood Pressure Mean [Right Arm] 104 Blood Pressure Position Blood Pressure Position [Right Arm] Semi-fowlers Pulse Oximetry 95 99 Oxygen Delivery Method Sepsis Recent Fever Within 48 Hours Sepsis New/Unexplained Change in Mental Status Sepsis Action Taken by Nursing Laboratory Data 02/18/23 10:20 02/18/23 10:20 Lab Results 02/18/23 02/18/23 02/18/23 Range/Units 10:20 10:20 10:20 WBC 5.75 (4.8-10.8) K/ul RBC 4.97 (4.20-5.40) M/uL Hgb 15.2 (12.0-16.0) g/dl POC Hgb (12.0-16.0) g/dl Hct 45.0 (37.0-47.0) % POC Hct (37-47) % MCV 90.5 (80.0-100.0) fL MCH 30.6 (25.0-34.0) pg MCHC 33.8 (32.0-36.0) g/dL RDW Std Deviation 40.6 (36.4-46.3) fL RDW Coeff of Vicky 12.3 (11.5-14.5) % Plt Count 351 (130-400) K/uL MPV 9.6 (9.4-12.4) fL Immature Gran % (Auto) 0.3 % Neut % (Auto) 67.9 % Lymph % (Auto) 20.3 % [place] % (Auto) 8.0 % Eos % (Auto) 2.6 % Baso % (Auto) 0.9 % Neut # (Auto) 3.90 (1.40-6.50) K/uL Lymph # (Auto) 1.17 L (1.20-3.40) K/uL [place] # (Auto) 0.46 (0.11-0.59) K/uL Eos # (Auto) 0.15 (0.00-0.50) K/uL Baso # (Auto) 0.05 (0.00-0.20) K/uL Immature Gran # (Auto) 0.02 (0.01-0.20) K/uL PT 10.4 (9.0-12.0) Seconds INR 0.9 (0.9-1.1) APTT 26.8 (21.0-31.0) Seconds PTT Ratio 1.0 POC Sodium (135-144) mmol/L Sodium 140 (136-145) mmol/L POC Potassium (3.3-5.0) mmol/L Potassium 4.0 (3.5-5.1) mmol/L POC Chloride (101-112) mmol/L Chloride 104 (98-107) mmol/L Carbon Dioxide 27 (21-32) mmol/L POC Total CO2 (24-31) mmol/L Anion Gap 9 (3-11) POC Anion Gap (16-25) mmol/L POC BUN (7-18) mg/dl BUN 16 (6-23) mg/dl Creatinine 0.92 (0.6-1.2) mg/dl POC Creatinine (0.6-1.3) mg/dl Est Cr Clr Drug Dosing 64.3 ml/min Est GFR ( Amer) 73.1 ml/min Est GFR (Non-Af Amer) 63.1 ml/min BUN/Creatinine Ratio 17.4 (10-20) Glucose 101 H (70-99(Fasting)) mg/dl POC Glucose (other) (70-99) mg/dl Calcium 9.6 (8.6-10.3) mg/dl POC Ioniz Calcium Nam (1.12-1.32) mmol/l Magnesium 1.8 (1.7-2.4) mg/dl Total Bilirubin 0.6 (0.2-1.0) mg/dl AST 19 (13-39) U/L ALT 19 (7-52) U/L Alkaline Phosphatase 79 (34-104) U/L Troponin I High Sens 4.1 (0-14) pg/ml Total Protein 8.5 H (6.0-8.3) gm/dl Albumin 4.9 (3.4-5.0) gm/dl Globulin 3.6 (2.5-4.0) gm/dl Albumin/Globulin Ratio 1.4 (0.9-2) Blood Type Antibody Screen 02/18/23 02/18/23 Range/Units 10:25 10:41 WBC (4.8-10.8) K/ul RBC (4.20-5.40) M/uL Hgb (12.0-16.0) g/dl POC Hgb 16.0 (12.0-16.0) g/dl Hct (37.0-47.0) % POC Hct 47 (37-47) % MCV (80.0-100.0) fL MCH (25.0-34.0) pg MCHC (32.0-36.0) g/dL RDW Std Deviation (36.4-46.3) fL RDW Coeff of Vicky (11.5-14.5) % Plt Count (130-400) K/uL MPV (9.4-12.4) fL Immature Gran % (Auto) % Neut % (Auto) % Lymph % (Auto) % [place] % (Auto) % Eos % (Auto) % Baso % (Auto) % Neut # (Auto) (1.40-6.50) K/uL Lymph # (Auto) (1.20-3.40) K/uL [place] # (Auto) (0.11-0.59) K/uL Eos # (Auto) (0.00-0.50) K/uL Baso # (Auto) (0.00-0.20) K/uL Immature Gran # (Auto) (0.01-0.20) K/uL PT (9.0-12.0) Seconds INR (0.9-1.1) APTT (21.0-31.0) Seconds PTT Ratio POC Sodium 141 (135-144) mmol/L Sodium (136-145) mmol/L POC Potassium 4.0 (3.3-5.0) mmol/L Potassium (3.5-5.1) mmol/L POC Chloride 104 (101-112) mmol/L Chloride (98-107) mmol/L Carbon Dioxide (21-32) mmol/L POC Total CO2 25 (24-31) mmol/L Anion Gap (3-11) POC Anion Gap 17.0 (16-25) mmol/L POC BUN 16 (7-18) mg/dl BUN (6-23) mg/dl Creatinine (0.6-1.2) mg/dl POC Creatinine 1.0 (0.6-1.3) mg/dl Est Cr Clr Drug Dosing ml/min Est GFR ( Amer) ml/min Est GFR (Non-Af Amer) ml/min BUN/Creatinine Ratio (10-20) Glucose (70-99(Fasting)) mg/dl POC Glucose (other) 108 H (70-99) mg/dl Calcium (8.6-10.3) mg/dl POC Ioniz Calcium Nam 1.19 (1.12-1.32) mmol/l Magnesium (1.7-2.4) mg/dl Total Bilirubin (0.2-1.0) mg/dl AST (13-39) U/L ALT (7-52) U/L Alkaline Phosphatase (34-104) U/L Troponin I High Sens (0-14) pg/ml Total Protein (6.0-8.3) gm/dl Albumin (3.4-5.0) gm/dl Globulin (2.5-4.0) gm/dl Albumin/Globulin Ratio (0.9-2) Blood Type A Positive Antibody Screen NEGATIVE Administered Medications Sodium Chloride (Nss) 1,000 mls @ 50 mls/hr IV .Q20H HEENA Stop: 03/20/23 10:14 Last Admin: 02/18/23 11:52 Dose: 50 mls/hr Documented By: HUGH Discontinued Medications Aspirin (Aspirin Chew 324 Mg) 324 mg PO NOW STA Stop: 02/18/23 11:20 Last Admin: 02/18/23 11:51 Dose: Not Given Documented By: HUGH Clopidogrel Bisulfate (Clopidogrel Bisulfate 75 Mg Tab) 75 mg PO NOW ONE Stop: 02/18/23 11:20 Last Admin: 02/18/23 11:48 Dose: 75 mg Documented By: HUGH Imaging Data Radiologist's Impression: Chest X-Ray 02/18/23 10:15 XR chest 1V portable HISTORY: 72 years-old Female neuro deficit, acute stroke suspected acute strokelike symptoms COMPARISON: 06/19/2017 TECHNIQUE: AP view of the chest FINDINGS: Cardiac silhouette is mildly enlarged. Mild right hemidiaphragmatic elevation. No pneumothorax, pleural effusion, airspace consolidation or pulmonary edema. Degenerative changes of the shoulders and spine. IMPRESSION: No acute process. ACT 112: Negative or not required by law. The above report was generated using voice recognition software. It may contain grammatical, syntax or spelling errors. Electronically signed by: Karthikeyan Richardson M.D. 02/18/2023 11:[address] 02/18/23 10:15 CT angio head w con, CT angio neck with con, CT head/brain wo con CLINICAL HISTORY: 72 years-old Female with neuro deficit, acute stroke suspected. Acute stroke symptoms COMPARISON STUDY: 06/19/2017 TECHNIQUE: Unenhanced axial CT scan of the brain is performed. Subsequently, following the IV administration of 120 cc of Optiray, CT angiogram of the head and neck was performed from the skull base to the vertex. Images are reviewed in the axial, sagittal, and coronal planes. 3-D MIPS images are created and asses sed. IV contrast was administered without complication. All measurements were obtained according to NASCET criteria. A dose lowering technique was utilized adhering to the principles of ALARA. CT DOSE: 1118.93 mGy.cm FINDINGS: CT BRAIN: There is no acute intracranial hemorrhage, midline shift, hydrocephalus, intracranial mass, territorial ischemia or abnormal extra-axial collections. No abnormal intra-axial or extra-axial enhancement. Calcifications of the falx cerebri. Mastoid air cells and middle ear cavities are clear. No calvarial fracture. Paranasal sinuses are clear. CT ANGIOGRAM OF THE HEAD AND NECK: Three-vessel morphology of the thoracic aorta and heart. There is patency of the innominate and image subclavian arteries. The common carotid arteries are patent. Moderate atherosclerosis of the carotid bulbs results in less than 50% stenosis bilaterally. The internal carotid arteries are patent. The bilateral anterior and middle cerebral arteries are also patent. Developmentally diminutive right A1 segment. Dominant and widely patent left vertebral artery. The right vertebral artery is also patent. There is no aneurysm, high-grade s tenosis, or proximal branch occlusion identified. Dural sinuses appear patent. The lung apices. Unremarkable soft tissues. Atrophic submandibular and parotid glands. Multilevel degenerative changes of the cervical spine. IMPRESSION: 1. No acute intracranial abnormality. 2. Unremarkable CTA of the head and neck. ACT 112: Negative or not required by law. The above report was generated using voice recognition software. It may contain grammatical, syntax or spelling errors. Electronically signed by: Karthikeyan Richardson M.D. 02/18/2023 10:50 AM Head CTA 02/18/23 10:15 CT angio head w con, CT angio neck with con, CT head/brain wo con CLINICAL HISTORY: 72 years-old Female with neuro deficit, acute stroke suspected. Acute stroke symptoms COMPARISON STUDY: 06/19/2017 TECHNIQUE: Unenhanced axial CT scan of the brain is performed. Subsequently, following the IV administration of 120 cc of Optiray, CT angiogram of the head and neck was performed from the skull base to the vertex. Images are reviewed in the axial, sagittal, and coronal planes. 3-D MIPS images are created and assessed. IV contrast was administered without complication. All measurements were obtained according to NASCET criteria. A dose lowering technique was utilized adhering to the principles of ALARA. CT DOSE: 1118.93 mGy.cm FINDINGS: CT BRAIN: There is no acute intracranial hemorrhage, midline shift, hydrocephalus, intracranial mass, territorial ischemia or abnormal extra-axial collections. No abnormal intra-axial or extra-axial enhancement. Calcifications of the falx cerebri. Mastoid air cells and middle ear cavities are clear. No calvarial fracture. Paranasal sinuses are clear. CT ANGIOGRAM OF THE HEAD AND NECK: Three-vessel morphology of the thoracic aorta and heart. There is patency of the innominate and image subclavian arteries. The common carotid arteries are patent. Moderate atherosclerosis of the carotid bulbs results in less than 50% stenosis bilaterally. The internal carotid arteries are patent. The bilateral anterior and middle cerebral arteries are also patent. Developmentally di minutive right A1 segment. Dominant and widely patent left vertebral artery. The right vertebral artery is also patent. There is no aneurysm, high-grade stenosis, or proximal branch occlusion identified. Dural sinuses appear patent. The lung apices. Unremarkable soft tissues. Atrophic submandibular and parotid glands. Multilevel degenerative changes of the cervical spine. IMPRESSION: 1. No acute intracranial abnormality. 2. Unremarkable CTA of the head and neck. ACT 112: Negative or not required by law. The above report was generated using voice recognition software. It may contain grammatical, syntax or spelling errors. Electronically signed by: Karthikeyan Richardson M.D. 02/18/2023 10:50 AM Neck CTA 02/18/23 10:15 CT angio head w con, CT angio neck with con, CT head/brain wo con CLINICAL HISTORY: 72 years-old Female with neuro deficit, acute stroke suspected. Acute stroke symptoms COMPARISON STUDY: 06/19/2017 TECHNIQUE: Unenhanced axial CT scan of the brain is performed. Subsequently, following the IV administration of 120 cc of Optiray, CT angiogram of the head and neck was performed from the skull base to the vertex. Images are reviewed in the axial, sagittal, and coronal planes. 3-D MIPS images are created and assessed. IV contrast was administered without complication. All measurements were obtained according to NASCET criteria. A dose lowering technique was utilized adhering to the principles of ALARA. CT DOSE: 1118.93 mGy.cm FINDINGS: CT BRAIN: There is no acute intracranial hemorrhage, midline shift, hydrocephalus, intracranial mass, territorial ischemia or abnormal extra-axial collections. No abnormal intra-axial or extra-axial enhancement. Calcifications of the falx cerebri. Mastoid air cells and middle ear cavities are clear. No calvarial fracture. Paranasal sinuses are clear. CT ANGIOGRAM OF THE HEAD AND NECK: Three-vessel morphology of the thoracic aorta and heart. There is patency of the innominate and image subclavian arteries. The common carotid arteries are patent. Moderate atherosclerosis of the carotid bulbs results in less than 50% stenosis bilaterally. The internal carotid arteries are patent. The bilateral anterior and middle cerebral arteries are also patent. Developmentally diminutive right A1 segment. Dominant and widely patent left vertebral artery. The right vertebral artery is also patent. There is no aneurysm, high-grade stenosis, or proximal branch occlusion identified. Dural sinuses appear patent. The lung apices. Unremarkable soft tissues. Atrophic submandibular and parotid glands. Multilevel degenerative changes of the cervical spine. IMPRESSION: 1. No acute intracranial abnormality. 2. Unremarkable CTA of the head and neck. ACT 112: Negative or not required by law. The above report was generated using voice recognition software. It may contain grammatical, syntax or spelling errors. Electronically signed by: Karthikeyan Richardson M.D. 02/18/2023 10:50 AM Discharge Plan Visit Data Chief Complaint: TIA Symptoms Stated Complaint: NUMBNESS IN FACE ABD LEFT ARM, CHEST PAIN ED Provider: Phill Giles Discharge Problem: Stroke-like symptoms Patient Disposition: Admitted As Inpatient Discharge Instructions Interventions: ED Discharge Assessment Last Done: 02/18/23 13:13
[2023-02-18] MEDS ORDERED: LORazepam 0.5 MG TAB ONE (17:44)
--- NOTE | 2023-02-18 18:54 | Magnetic Resonance Report ---
MR brain wo con HISTORY: 72 years-old Female TIA acute stroke like symptoms COMPARISON: Head CT of same day TECHNIQUE: Multiplanar multisequence MRI of the brain was obtained without the use of IV contrast FINDINGS: No restricted diffusion. Midline structures are unremarkable. Degenerative changes of the cervical sp ine. No acute intracranial hemorrhage, midline shift, abnormal extra-axial collection, hydrocephalus or intra-axial mass. Mild involutional changes. Minimal T2/FLAIR hyperintense foci throughout the whi te matter, likely of no clinical significance. Cerebral venous sinuses and major arterial flow voids appear patent. The skull, orbits and soft tissu es are unremarkable. IMPRESSION: No acute intracranial abnormality. No acute or subacute infarct. ACT 112: Negative or not required by law. The above report was generated using voice recognition software. It may contain grammatical, syntax o r spelling errors. Electronically signed by: Karthikeyan Richardosn M.D. 02/18/2023 6:53 PM
[2023-02-19 07:52] LABS: Estimated Average Glucose 117 mg/dl; Hemoglobin A1C 5.7 % (4.5-5.6)
[2023-02-19] MEDS ORDERED: ASPIRIN 81 MG ECTAB PO SCH (09:00)
[2023-02-19] MEDS ORDERED: PANTOprazole 40 MG TAB PO SCH (09:00)
[2023-02-19] MEDS ORDERED: ATENOLOL 25 MG TABLET PO SCH (09:00)
[2023-02-19] MEDS ORDERED: CLOPIDOGREL BISULFATE 75 MG TAB PO SCH (09:00)
--- NOTE | 2023-02-19 09:40 | Neurology Consultation ---
Date of Consultation February 19, 2023 Assessment & Plan (1) Stroke-like symptoms: Cramp followed by left sided paraesthesias is not consistent with TIA or stroke in my opinion. She does not qualify for dual antiplatelet therapy with sensory only symptoms and a negative workup. Would discharge on aspirin 81mg daily for her ASCVD risk profile. Otherwise simvastatin 10mg is reasonable. Would refer back to PCP for further BP control given her BP during this admission is above goal, could perhaps adjust her current medications. She has PCP follow-up Saturday. No further neurologic workup, she does not need neurology follow-up. -- Stop DAPT, can continue aspirin 81mg monotherapy -- No further neurologic workup, BP optimization per hospital medicine/PCP Telehealth Consultation Telehealth Information Telehealth Information: I performed this visit using a real-time telehealth connection between my location and the patients location ([facility]). After connecting through interactive tele-video, patient was identified by name and date of and/or wristband check.Patient (or authorized healthcare office services representative) was informed that this was a telemedicine visit and it was being conducted confidentially over secure lines. My office door was closed and no one else was present in the room with me.Patient (or authorized healthcare office services representative) provided consent to proceed with the visit, expressed an understanding of privacy and security of the telemedicine visit, and gave permission to have a hospital office services representative in the room in order to assist with the visit and to conduct portions of the visit, as needed. I informed the patient (or authorized healthcare office services representative) that I reviewed their record and presented the opportunity for them to ask any questions regarding the visit today. The patient agreed to participate. History of Present Illness Reason for Consultation: L sided numbness Requesting Physician: Dr. Medel Attending Physician: Frank Medel MD History of Present Illness Christine Lara is a 72 yo F presenting with L sided numbness. She bent over to picker/puller something and felt a cramp in her leg followed by spreading tingling throughout her left side that lasted a few hours yesterday. When the tingling/numbness did not resolve on its own she came to [facility] for further evaluation. She has never had anything like that in the past. She feels well today otherwise with full resolution of her symptoms. She denies any associated headache, weakness, vision or speech changes with the symptoms yesterday. She was not taking any antiplatelet prior to this admission. Allergies Allergy/AdvReac Type Severity Reaction Status Date / Time lisinopril Allergy Unknown Cough Verified 02/18/23 13:11 Home Medications Medication Instructions Recorded Confirmed Type atenolol 25 mg tablet 25 mg PO DAILY 02/18/23 02/18/23 History felodipine 5 mg tablet,extended 5 mg PO HS 02/18/23 02/18/23 History release 24 hr omeprazole 20 mg capsule,delayed 20 mg PO DAILY 02/18/23 02/18/23 History release simvastatin 10 mg tablet 10 mg PO HS 02/18/23 02/18/23 History Patient History Medical History Anxiety GERD (gastroesophageal reflux disease) Gout HLD (hyperlipidemia) HTN (hypertension) Sjogren syndrome with dental involvement Surgical History History of cholecystectomy S/P right knee arthroscopy S/P tonsillectomy and adenoidectomy Family History Other Alzheimer disease Breast cancer Diabetes Heart disease Social History Smoking Status: Never smoker Second Hand Exposure: No; Do You Dip or Chew Tobacco: No; Hx Alcohol Use: No Hx Substance Use: No Preferred Language: Bulgarian Communication Ability: Effective Machine Plate Stacker Required: No Beliefs That Will Affect Care: None Current Living Situation: Spouse Other Information That Helps Us Care for You: No Feels Safe at Home: Yes Safety Concerns: Feels Safe At This Time Assistive Devices: None Review of Systems +L sided numbness, resovled Physical Exam Neurological Examination: Mental Status: Awake and alert. Oriented to person, place, and time. Fluent. Comprehension intact. Affect appropriate. Cranial Nerves: II: pupils 3/3 to 2/2, miramontes grossly intact. III/IV/: Versions intact without nystagmus, no gaze preference. VII: Facial expression symmetric VIII: Hearing intact to voice IX/X: Palate elevates symmetrically Motor: Strength was symmetric and antigravity throughout. Pronator drift was absent. There were no abnormal movements. Coordination: Finger to nose wasintact. Reflexes: Unable to assess over telemedicine Results & Data Vital Signs (Past 12 Hours) Vital Signs Temp Pulse Pulse Resp BP Pulse Ox O2 Del Method 02/19/23 07:59 36.4 C L 60 17 143/82 H 97 Room Air 02/19/23 02:38 36.5 C 55 L 15 152/67 H 100 Room Air 02/19/23 01:20 55 L 02/18/23 23:12 36.4 C L 59 L 14 142/83 H 96 Room Air Laboratory Results Abnormal lab results 02/18/23 02/18/23 02/18/23 Range/Units 10:20 10:20 10:25 Lymph # (Auto) 1.17 L (1.20-3.40) K/uL Glucose 101 H (70-99(Fasting)) mg/dl POC Glucose (other) 108 H (70-99) mg/dl Hemoglobin A1c (4.5-5.6) % Total Protein 8.5 H (6.0-8.3) gm/dl Ur Specific [place] (1.000-1.030) 02/18/23 02/19/23 Range/Units Unknown 07:04 Lymph # (Auto) (1.20-3.40) K/uL Glucose (70-99(Fasting)) mg/dl POC Glucose (other) (70-99) mg/dl Hemoglobin A1c 5.7 H (4.5-5.6) % Total Protein (6.0-8.3) gm/dl Ur Specific [place] 1.034 H (1.000-1.030) Diagnostic Findings MRI brain - Unremarkable
[2023-02-19 11:36] LABS: Thyroid Stimulating Hormone 6.294 uIu/ml (0.300-4.500)
[2023-02-19 12:10] LABS: T4 Free Thyroxine 0.95 ng/dl (0.61-1.60)
--- NOTE | 2023-02-19 13:40 | Hospitalist Progress Note ---
Date of Service February 19, 2023 Assessment & Plan (1) Stroke-like symptoms: Plan: Patient is a 72 yr female with H/O hypertension, hyperlipidemia, GERD, and Sjogren's who presents to the ED today with transient tingling and numbness in the left side. Neuro symptoms all seem to be sensory with no motor effects and are slowly resolving though not yet resolved. She denies prior similar episodes although was on Plavix previously several years ago for question of prior CVA although pt denies symptoms. Stroke alert was called in the ED and TPA was not indicated by tele-neurologist did recommend admission for observation overnight and additional work-up. Strokelike symptoms Less likely TIA, CVA Likely musculoskeletal secondary to cramping --MRI Brain:No acute intracranial abnormality. No acute or subacute infarct. --Head/Neck CTA:No acute intracranial abnormality. Unremarkable CTA of the head and neck. --ECHO: EF 55 to 60%. Borderline concentric LVH. Trace aortic and tricuspid regurgitation. No interatrial shunt Normal vitamin B12 levels Normal lipid panel Appreciate neurology input Continue aspirin 81 mg daily Continue simvastatin 10 mg daily PT OT evaluation completed Plan to be discharged home today (2) HTN (hypertension): Plan: Hypertension Sinus bradycardia Will increase felodipine to 10 mg daily Hold atenolol due to bradycardia (3) HLD (hyperlipidemia): Plan: Continue statin (4) Sjogren syndrome with dental involvement: (5) GERD (gastroesophageal reflux disease): Plan: Continue PPI Plan DVT PX: Lovenox SQ CODE STATUS Full code Disposition Home Admission and Anticipated Discharge Date Admission Date: February 18, 2023 Subjective Patient is seen and examined at bedside Left-sided numbness, tingling resolved Denies any chest pain, dyspnea, dizziness, nausea, vomiting, abdominal pain, focal weakness, double vision or blurry vision Discussed with urology today Plan to discharge home today Review of Systems Review of Systems: All systems reviewed & are unremarkable except as noted in Subjective Physical Exam Physical Exam: Physical Exam: Vitals signs as noted above General Appearance:Obese, no apparent distress Head: normocephalic, Atraumatic Eyes: normal inspection, EOMI Neck: supple, Trachea midline Respiratory/Chest: Normal breath sounds, CTA, No accessory muscle use Cardiovascular: S1, S2, No murmur,+Bradycardia Abdomen/GI:Soft, Non tender, Bowel sounds present Extremities/Musculoskeletal:normal inspection, no edema Neurologic/Psych:AAOX3, grossly no focal neurological deficits Skin: normal color, warm Results & Data Results & Data Vital Signs (Past 12 Hours) Vital Signs Temp Pulse Pulse Resp BP Pulse Ox O2 Del Method 02/19/23 10:08 54 L 02/19/23 07:59 36.4 C L 60 17 143/82 H 97 Room Air 02/19/23 02:38 36.5 C 55 L 15 152/67 H 100 Room Air Laboratory Results Urine 02/18/23 Range/Units Unknown Urine Color Yellow Urine Appearance Clear (Clear) Urine pH 7.0 (4.5-7.5) Ur Specific [place] 1.034 H (1.000-1.030) Urine Protein Negative (Negative) Urine Glucose (UA) Negative (Negative)
--- NOTE | 2023-02-19 13:44 | Discharge Summary ---
Date of Service February 19, 2023 Admission HPI Per Admitting Provider This is a 72 yo F with history of HTN, hyperlipidemia, GERD, and Sjogren syndrome who presented to the ED this morning at about 10:30 am for evaluation of left sided tingling. She states that while she was kneeling on her L knee at [employer] at 08:30 am she noticed shooting pain in the knee and calf that then radiated proximally in the leg. The pain quickly resolved but was immediately replaced by a tingling sensation that moved to the entire L arm and L side of her face. Talked to her daughter who is a nurse, who thought the symptoms were concerning, prompting her to go to the ED. These symptoms continued for 2-3 hours but then gradually started to improve. At the time of my evaluation, most symptoms have resolved however the L hand continues to feel "off", she states that it doesn't quite feel like the R in terms of sensation and tingling. Denies dysphagia, trouble speaking, numbness, facial droop, one-sided weakness, trouble walking, confusion, syncope, chest pain, palpitations, shortness of breath, abdominal pain, N/V/D, or anything like this ever happening before. Of note, she was prescribed Plavix over 10-20 years ago though she does not know why it was prescribed or discontinued but thinks it was related to a question of a prior stroke seen on imaging. Admission Exam Per Admitting Provider Physical Exam Constitutional: well developed and well nourished; no acute distress Eyes: PERRL, conjunctivae normal, anicteric sclerae ENMT: external ear and nose normal, oropharynx normal Neck: trachea midline Respiratory: no respiratory distress and no labored breathing Auscultation: lungs clear to auscultation bilaterally; no rales, no rhonchi and no wheezes Cardiovascular: Rate/Rhythm: regular rate and regular rhythm Vessels: radial pulses present Extremities: no pedal edema Gastrointestinal (Abdomen): Inspection/Auscultation: normal bowel sounds; abdomen not distended Percussion/Palpation: abdomen soft; abdomen nontender Musculoskeletal: Head/Neck/Chest: normocephalic, head atraumatic and neck supple Skin: no jaundice Neurologic: moves all extremities; not confused Speech / Cognition: normal speech and no expressive aphasia Motor/Sensory: no tremor, no fasciculations and no asterixis Cranial Nerves: PERRL, normal accommodation, EOM intact bilaterally, normal facial strength, tongue midline, able to rotate head bilaterally, able to elevate shoulders bilaterally and no nystagmus Psychiatric: A+Ox3, euthymic affect Principal Diagnosis Strokelike symptoms Hypertension Sinus bradycardia Discharge Data Allergies Allergy/AdvReac Type Severity Reaction Status Date / Time lisinopril Allergy Unknown Cough Verified 02/18/23 13:11 Consultations 02/18/23 12:21 ED Decision to Admit Stat 02/18/23 13:16 Consult Neurology Routine Procedures Performed Laboratory Results WBC 5.75 K/ul (4.8-10.8) 02/18/23 10:20 RBC 4.97 M/uL (4.20-5.40) 02/18/23 10:20 Hgb 15.2 g/dl (12.0-16.0) 02/18/23 10:20 POC Hgb 16.0 g/dl (12.0-16.0) 02/18/23 10:25 Hct 45.0 % (37.0-47.0) 02/18/23 10:20 POC Hct 47 % (37-47) 02/18/23 10:25 MCV 90.5 fL (80.0-100.0) 02/18/23 10:20 MCH 30.6 pg (25.0-34.0) 02/18/23 10:20 MCHC 33.8 g/dL (32.0-36.0) 02/18/23 10:20 RDW Std Deviation 40.6 fL (36.4-46.3) 02/18/23 10:20 RDW Coeff of Vicky 12.3 % (11.5-14.5) 02/18/23 10:20 Plt Count 351 K/uL (130-400) 02/18/23 10:20 MPV 9.6 fL (9.4-12.4) 02/18/23 10:20 Immature Gran % (Auto) 0.3 % 02/18/23 10:20 Neut % (Auto) 67.9 % 02/18/23 10:20 Lymph % (Auto) 20.3 % 02/18/23 10:20 [place] % (Auto) 8.0 % 02/18/23 10:20 Eos % (Auto) 2.6 % 02/18/23 10:20 Baso % (Auto) 0.9 % 02/18/23 10:20 Neut # (Auto) 3.90 K/uL (1.40-6.50) 02/18/23 10:20 Lymph # (Auto) 1.17 K/uL (1.20-3.40) L 02/18/23 10:20 [place] # (Auto) 0.46 K/uL (0.11-0.59) 02/18/23 10:20 Eos # (Auto) 0.15 K/uL (0.00-0.50) 02/18/23 10:20 Baso # (Auto) 0.05 K/uL (0.00-0.20) 02/18/23 10:20 Immature Gran # (Auto) 0.02 K/uL (0.01-0.20) 02/18/23 10:20 PT 10.4 Seconds (9.0-12.0) 02/18/23 10:20 INR 0.9 (0.9-1.1) 02/18/23 10:20 APTT 26.8 Seconds (21.0-31.0) 02/18/23 10:20 PTT Ratio 1.0 02/18/23 10:20 POC Sodium 141 mmol/L (135-144) 02/18/23 10:25 Sodium 140 mmol/L (136-145) 02/18/23 10:20 POC Potassium 4.0 mmol/L (3.3-5.0) 02/18/23 10:25 Potassium 4.0 mmol/L (3.5-5.1) 02/18/23 10:20 POC Chloride 104 mmol/L (101-112) 02/18/23 10:25 Chloride 104 mmol/L (98-107) 02/18/23 10:20 Carbon Dioxide 27 mmol/L (21-32) 02/18/23 10:20 POC Total CO2 25 mmol/L (24-31) 02/18/23 10:25 Anion Gap 9 (3-11) 02/18/23 10:20 POC Anion Gap 17.0 mmol/L (16-25) 02/18/23 10:25 POC BUN 16 mg/dl (7-18) 02/18/23 10:25 BUN 16 mg/dl (6-23) 02/18/23 10:20 Creatinine 0.92 mg/dl (0.6-1.2) 02/18/23 10:20 POC Creatinine 1.0 mg/dl (0.6-1.3) 02/18/23 10:25 Est Cr Clr Drug Dosing 64.3 ml/min 02/18/23 10:20 Est GFR ( Amer) 73.1 ml/min 02/18/23 10:20 Est GFR (Non-Af Amer) 63.1 ml/min 02/18/23 10:20 BUN/Creatinine Ratio 17.4 (10-20) 02/18/23 10:20 Glucose 101 mg/dl (70-99(Fasting)) H 02/18/23 10:20 POC Glucose (other) 108 mg/dl (70-99) H 02/18/23 10:25 Estimat Average Glucose 117 mg/dl 02/19/23 07:04 Hemoglobin A1c 5.7 % (4.5-5.6) H 02/19/23 07:04 Calcium 9.6 mg/dl (8.6-10.3) 02/18/23 10:20 POC Ioniz Calcium Nam 1.19 mmol/l (1.12-1.32) 02/18/23 10:25 Magnesium 1.8 mg/dl (1.7-2.4) 02/18/23 10:20 Total Bilirubin 0.6 mg/dl (0.2-1.0) 02/18/23 10:20 AST 19 U/L (13-39) 02/18/23 10:20 ALT 19 U/L (7-52) 02/18/23 10:20 Alkaline Phosphatase 79 U/L (34-104) 02/18/23 10:20 Troponin I High Sens 4.1 pg/ml (0-14) 02/18/23 10:20 Total Protein 8.5 gm/dl (6.0-8.3) H 02/18/23 10:20 Albumin 4.9 gm/dl (3.4-5.0) 02/18/23 10:20 Globulin 3.6 gm/dl (2.5-4.0) 02/18/23 10:20 Albumin/Globulin Ratio 1.4 (0.9-2) 02/18/23 10:20 Triglycerides 103 mg/dl (0-150) 02/19/23 07:04 Cholesterol 155 mg/dl (0-200) 02/19/23 07:04 LDL Cholesterol, Calc 82 mg/dl 02/19/23 07:04 VLDL Cholesterol, Calc 21 mg/dl (0-30) 02/19/23 07:04 HDL Cholesterol 52 mg/dl 02/19/23 07:04 Cholesterol/HDL Ratio 3.0 (0-5) 02/19/23 07:04 Vitamin B12 429 pg/ml (180-914) 02/19/23 07:04 TSH 6.294 uIu/ml (0.300-4.500) H 02/19/23 07:04 Free T4 0.95 ng/dl (0.61-1.60) 02/19/23 07:04 Urine Color Yellow 02/18/23 Unknown Urine Appearance Clear (Clear) 02/18/23 Unknown Urine pH 7.0 (4.5-7.5) 02/18/23 Unknown Ur Specific [place] 1.034 (1.000-1.030) H 02/18/23 Unknown Urine Protein Negative (Negative) 02/18/23 Unknown Urine Glucose (UA) Negative (Negative) 02/18/23 Unknown Urine Ketones Negative (Negative) 02/18/23 Unknown Urine Blood Negative (Negative) 02/18/23 Unknown Urine Nitrite Negative (Negative) 02/18/23 Unknown Urine Bilirubin Negative (Negative) 02/18/23 Unknown Urine Urobilinogen Negative (Negative) 02/18/23 Unknown Ur Leukocyte Esterase Negative (Negative) 02/18/23 Unknown SARS-CoV-2, RNA, NAAT NEGATIVE (NEGATIVE) 02/18/23 Unknown Blood Type A Positive 02/18/23 10:41 Antibody Screen NEGATIVE 02/18/23 10:41 Impressions Chest X-Ray 02/18/23 10:15 XR chest 1V portable HISTORY: 72 years-old Female neuro deficit, acute stroke suspected acute strokelike symptoms COMPARISON: 06/19/2017 TECHNIQUE: AP view of the chest FINDINGS: Cardiac silhouette is mildly enlarged. Mild right hemidiaphragmatic elevation. No pneumothorax, pleural effusion, airspace consolidation or pulmonary edema. Degenerative changes of the shoulders and spine. IMPRESSION: No acute process. ACT 112: Negative or not required by law. The above report was generated using voice recognition software. It may contain grammatical, syntax or spelling errors. Electronically signed by: Karthikeyan Richardson M.D. 02/18/2023 11:[address] 02/18/23 10:15 CT angio head w con, CT angio neck with con, CT head/brain wo con CLINICAL HISTORY: 72 years-old Female with neuro deficit, acute stroke suspected. Acute stroke symptoms COMPARISON STUDY: 06/19/2017 TECHNIQUE: Unenhanced axial CT scan of the brain is performed. Subsequently, following the IV administration of 120 cc of Optiray, CT angiogram of the head and neck was performed from the skull base to the vertex. Images are reviewed in the axial, sagittal, and coronal planes. 3-D MIPS images are created and assessed. IV contrast was administered without complication. All measurements were obtained according to NASCET criteria. A dose lowering technique was utilized adhering to the principles of ALARA. CT DOSE: 1118.93 mGy.cm FINDINGS: CT BRAIN: There is no acute intracranial hemorrhage, midline shift, hydrocephalus, intracranial mass, territorial ischemia or abnormal extra-axial collections. No abnormal intra-axial or extra-axial enhancement. Calcifications of the falx cerebri. Mastoid air cells and middle ear cavities are clear. No calvarial fracture. Paranasal sinuses are clear. CT ANGIOGRAM OF THE HEAD AND NECK: Three-vessel morphology of the thoracic aorta and heart. There is patency of the innominate and image subclavian arteries. The common carotid arteries are patent. Moderate atherosclerosis of the carotid bulbs results in less than 50% stenosis bilaterally. The internal carotid arteries are patent. The bilateral anterior and middle cerebral arteries are also patent. Developmentally diminutive right A1 segment. Dominant and widely patent left vertebral artery. The right vertebral artery is also patent. There is no aneurysm, high-grade stenosis, or proximal branch occlusion identified. Dural sinuses appear patent. The lung apices. Unremarkable soft tissues. Atrophic submandibular and parotid glands. Multilevel degenerative changes of the cervical spine. IMPRESSION: 1. No acute intracranial abnormality. 2. Unremarkable CTA of the head and neck. ACT 112: Negative or not required by law. The above report was generated using voice recognition software. It may contain grammatical, syntax or spelling errors. Electronically signed by: Karthikeyan Richardson M.D. 02/18/2023 10:50 AM Head CTA 02/18/23 10:15 CT angio head w con, CT angio neck with con, CT head/brain wo con CLINICAL HISTORY: 72 years-old Female with neuro deficit, acute stroke suspected. Acute stroke symptoms COMPARISON STUDY: 06/19/2017 TECHNIQUE: Unenhanced axial CT scan of the brain is performed. Subsequently, following the IV administration of 120 cc of Optiray, CT angiogram of the head and neck was performed from the skull base to the vertex. Images are reviewed in the axial, sagittal, and coronal planes. 3-D MIPS images are created and assessed. IV contrast was administered without complication. All measurements were obtained according to NASCET criteria. A dose lowering technique was utilized adhering to the principles of ALARA. CT DOSE: 1118.93 mGy.cm FINDINGS: CT BRAIN: There is no acute intracranial hemorrhage, midline shift, hydrocephalus, intracranial mass, territorial ischemia or abnormal extra-axial collections. No abnormal intra-axial or extra-axial enhancement. Calcifications of the falx cerebri. Mastoid air cells and middle ear cavities are clear. No calvarial fracture. Paranasal sinuses are clear. CT ANGIOGRAM OF THE HEAD AND NECK: Three-vessel morphology of the thoracic aorta and heart. There is patency of the innominate and image subclavian arteries. The common carotid arteries are patent. Moderate atherosclerosis of the carotid bulbs results in less than 50% stenosis bilaterally. The internal carotid arteries are patent. The bilateral anterior and middle cerebral arteries are also patent. Developmentally diminutive right A1 segment. Dominant and widely patent left vertebral artery. The right vertebral artery is also patent. There is no aneurysm, high-grade stenosis, or proximal branch occlusion identified. Dural sinuses appear patent. The lung apices. Unremarkable soft tissues. Atrophic submandibular and parotid glands. Multilevel degenerative changes of the cervical spine. IMPRESSION: 1. No acute intracranial abnormality. 2. Unremarkable CTA of the head and neck. ACT 112: Negative or not required by law. The above report was generated using voice recognition software. It may contain grammatical, syntax or spelling errors. Electronically signed by: Karthikeyan Richardson M.D. 02/18/2023 10:50 AM Neck CTA 02/18/23 10:15 CT angio head w con, CT angio neck with con, CT head/brain wo con CLINICAL HISTORY: 72 years-old Female with neuro deficit, acute stroke suspected. Acute stroke symptoms COMPARISON STUDY: 06/19/2017 TECHNIQUE: Unenhanced axial CT scan of the brain is performed. Subsequently, following the IV administration of 120 cc of Optiray, CT angiogram of the head and neck was performed from the skull base to the vertex. Images are reviewed in the axial, sagittal, and coronal planes. 3-D MIPS images are created and assessed. IV contrast was administered without complication. All measurements were obtained according to NASCET criteria. A dose lowering technique was utilized adhering to the principles of ALARA. CT DOSE: 1118.93 mGy.cm FINDINGS: CT BRAIN: There is no acute intracranial hemorrhage, midline shift, hydrocephalus, intracranial mass, territorial ischemia or abnormal extra-axial collections. No abnormal intra-axial or extra-axial enhancement. Calcifications of the falx cerebri. Mastoid air cells and middle ear cavities are clear. No calvarial fracture. Paranasal sinuses are clear. CT ANGIOGRAM OF THE HEAD AND NECK: Three-vessel morphology of the thoracic aorta and heart. There is patency of the innominate and image subclavian arteries. The common carotid arteries are patent. Moderate atherosclerosis of the carotid bulbs results in less than 50% stenosis bilaterally. The internal carotid arteries are patent. The bilateral anterior and middle cerebral arteries are also patent. Developmentally diminutive right A1 segment. Dominant and widely patent left vertebral artery. The right vertebral artery is also patent. There is no aneurysm, high-grade stenosis, or proximal branch occlusion identified. Dural sinuses appear patent. The lung apices. Unremarkable soft tissues. Atrophic submandibular and parotid glands. Multilevel degenerative changes of the cervical spine. IMPRESSION: 1. No acute intracranial abnormality. 2. Unremarkable CTA of the head and neck. ACT 112: Negative or not required by law. The above report was generated using voice recognition software. It may contain grammatical, syntax or spelling errors. Electronically signed by: Karthikeyan Richardson M.D. 02/18/2023 10:50 AM Brain MRI 02/18/23 13:14 MR brain wo con HISTORY: 72 years-old Female TIA acute stroke like symptoms COMPARISON: Head CT of same day TECHNIQUE: Multiplanar multisequence MRI of the brain was obtained without the use of IV contrast FINDINGS: No restricted diffusion. Midline structures are unremarkable. Degenerative changes of the cervical spine. No acute intracranial hemorrhage, midline shift, abnormal extra-axial collection, hydrocephalus or intra-axial mass. Mild involutional changes. Minimal T2/FLAIR hyperintense foci throughout the white matter, likely of no clinical significance. Cerebral venous sinuses and major arterial flow voids appear patent. The skull, orbits and soft tissues are unremarkable. IMPRESSION: No acute intracranial abnormality. No acute or subacute infarct. ACT 112: Negative or not required by law. The above report was generated using voice recognition software. It may contain grammatical, syntax or spelling errors. Electronically signed by: Karthikeyan Richardson M.D. 02/18/2023 6:53 PM Ordered Studies 02/18/23 10:15 CT angio head w con Stat CT angio neck with con Stat CT head/brain wo con Stat 02/18/23 13:14 MRI Brain [MR brain wo con] Routine Hospital Course (1) Stroke-like symptoms: Patient is a 72 yr female with H/O hypertension, hyperlipidemia, GERD, and Sjogren's who presents to the ED today with transient tingling and numbness in the left side. Neuro symptoms all seem to be sensory with no motor effects and are slowly resolving though not yet resolved. She denies prior similar episodes although was on Plavix previously several years ago for question of prior CVA although pt denies symptoms. Stroke alert was called in the ED and TPA was not indicated by tele-neurologist did recommend admission for observation overnight and additional work-up. Strokelike symptoms Less likely TIA, CVA Likely musculoskeletal secondary to cramping --MRI Brain:No acute intracranial abnormality. No acute or subacute infarct. --Head/Neck CTA:No acute intracranial abnormality. Unremarkable CTA of the head and neck. --ECHO: EF 55 to 60%. Borderline concentric LVH. Trace aortic and tricuspid regurgitation. No interatrial shunt Normal vitamin B12 levels Normal lipid panel Appreciate neurology input Continue aspirin 81 mg daily Continue simvastatin 10 mg daily PT OT evaluation completed Plan to be discharged home today (2) HTN (hypertension): Hypertension Sinus bradycardia Will increase felodipine to 10 mg daily Hold atenolol due to bradycardia (3) HLD (hyperlipidemia): Continue statin (4) Sjogren syndrome with dental involvement: (5) GERD (gastroesophageal reflux disease): Continue PPI Plan DVT PX: Lovenox SQ CODE STATUS Full code Disposition Home Total Time Total Time Spent Total Time Spent (In Minutes): 54 minutes Discharge Plan Discharge Items Patient Disposition: Home - Self-Care Reason For Visit: TIA Discharge Diagnosis: Strokelike symptoms Hypertension Sinus bradycardia Activity: Per Instructions section Exercise/Sports: Gradually increase as tolerated Non-emergency contact: Primary Care Provider Call non-emergency contact if: you have any medication questions, your symptoms worsen, your pain is concerning for you and you have a fever Follow-up/Referrals: Wendy Clay, [Primary Care Provider] - (Date & Time 02/22/2023 7:10 AM Provider Marlin Cobos PA-C Department [facility] ) Diet: Heart Healthy Addtl Attending Provider Instructions: Follow-up with your primary physician on 02/22/2023 7:10 AM --- Monitor your blood pressure regularly at home. Discuss with your physician for further adjustment of blood pressure medications as needed. -- Consider an outpatient sleep study as advised. Seek immediate medical attention if your symptoms reoccur or worsen Please take all medications as instructed on discharge list below. Please call if you have any questions or problems. You can reach a [facility] hospitalist on duty at [facility] 24 hours a day by calling [phone] Risk Factors for Stroke: You can reduce your chances of stroke by working with your medical provider to adopt a healthy lifestyle. Some specific ways to lower your chance of stroke are: * If you are a smoker, now is the time to stop smoking cigarettes * If you are diabetic, improve the control of your blood sugars * Avoid excessive amounts of alcohol * Control high blood pressure * Lose weight if you are overweight * Be sure to lead an active lifestyle * Eat a healthy diet low in salt, cholesterol and fat You should know about other risk factors for stroke that you are unable to control. These include: * Age 55 years or older * Male gender * Certain racial groups: , or / * Family History of Stroke, Mini stroke or Heart Attack * Sickle Cell Disease Follow Up: It is important for you to keep your follow up appointments with your medical provider. Who to Call and When: Medical Emergencies: Call 911 immediately if you experience any of the following warning signs and symptoms of Stroke: * Sudden numbness or weakness of the face, arm or leg, especially on one side of the body * Sudden confusion, trouble speaking or understanding * Sudden trouble seeing in one or both eyes * Sudden trouble walking, dizziness, loss of balance or coordination * Sudden severe headache with no cause Do not delay calling 911 if you experience any warning signs or symptoms of a stroke. Delay in seeking medical attention may affect what treatments can be given to you. . Pending Studies at Discharge: No Stand-Alone Forms: My [facility], Smoking Cessation Medications and DC Order Prescriptions: New aspirin 81 mg Tablet,Delayed Release (Dr/Ec) 81 mg PO QAM Qty: 30 0RF Continued omeprazole 20 mg capsule,delayed release(DR/EC) 20 mg PO DAILY simvastatin 10 mg tablet 10 mg PO HS Changed felodipine 5 mg tablet extended release 24 hr 10 mg PO HS Qty: 60 0RF Held atenolol 25 mg tablet 25 mg PO DAILY Hold Instructions: Until further instructions by your primary care physician Discharge Orders: Discharge Order (Routine); Ordered 02/19/23 Ordered By: Frank Medel Admission Data Admit Date/Time: 02/18/23 12:17 Attending Provider: Frank Medel Admit Provider: Gabbie Waters Primary Care Provider: Wendy Clay Other Providers: Gabbie Waters ; Corwin Gallegos
--- NOTE | 2023-02-19 14:30 | Electrocardiogram Report ---
Test Reason : Blood Pressure : / mmHG Vent. Rate : 062 BPM Atrial Rate : 062 BPM P-R Int : 158 ms QRS Dur : 074 ms QT Int : 426 ms P-R-T Axes : 033 -02 028 degrees QTc Int : 432 ms Poor data quality, interpretation may be adversely affected Normal sinus rhythm Minimal voltage criteria for LVH, may be normal variant ( R in aVL ) Cannot rule out Anterior infarct (cited on or before 18-FEB-2023) Abnormal ECG When compared with ECG of 27-NOV-2019 08:57, No significant change was found Confirmed by Eligio Diaz ([id number]) on 02/19/2023 2:29:54 PM Referred By: REFERRED SELF Confirmed By:Eligio Diaz
--- NOTE | 2023-02-19 15:28 | Electrocardiogram Report ---
Test Reason : Blood Pressure : / mmHG Vent. Rate : 050 BPM Atrial Rate : 050 BPM P-R Int : 166 ms QRS Dur : 082 ms QT Int : 470 ms P-R-T Axes : 027 -02 024 degrees QTc Int : 428 ms Sinus bradycardia Minimal voltage criteria for LVH, may be normal variant ( R in aVL ) Cannot rule out Anterior infarct (cited on or before 18-FEB-2023) Abnormal ECG When compared with ECG of 27-NOV-2019 08:57, No significant change was found Confirmed by Eligio Diaz ([id number]) on 02/19/2023 3:27:54 PM Referred By: REFERRED SELF Confirmed By:Eligio Diaz
[2023-02-19] MEDS ORDERED: FELODIPINE 5 MG TABCR PO SCH ×2 (21:00)
[2023-02-19] MEDS ORDERED: SIMVASTATIN 10 MG TAB PO SCH (21:00)
== END 2023-02-19 14:31 | disposition home or self-care (01) ==
LOC: EDINP 10:07 → ED 10:07 → SUATTDRO 12:17 → EDINP 13:13 → 2S 19:15

== ENCOUNTER 2024-03-01 10:24 | Inpatient (IN) ==
--- OUTSIDE RECORDS SUMMARY | 2024-03-01 10:29 | External Medical Summary | Summary of Care ---
Author Name Unknown Organization [facility] Address [address] [facility] [place] [address] Phone [phone] Care Team Providers Care Content Specialist Name Role Phone Cresencio Timmons DO Primary Care Provider Reason for Visit * Reason Onset Date Comments Medication Refill 12/24/2023 Encounter Details Date Type Department Care Team (Late st Contact Info) Description 12/24/2023 Refill Family Medicine [address] [place] [address] Cresencio Timmons DO [address] [place], [place] [address] [address] Essential hypertension with goal blood pressure less than 140/90 Allergies Active Allergy Reactions Criticality Noted Date Comments Doxycycline Hyclate 09/15/2001 GI upset Hydrochlorothiazide W-Triamterene 08/27/2001 severe hypokalemia Lisinopril Other (Please comment) Low 11/28/2006 cough documented as of this encounter (statuses as of 12/24/2023) Medications Medication Sig Dispensed Refills Start Date End Date Status CALCIUM + D 600-200 MG-UNIT PO TABS 1 tablet daily 0 12/17/2005 Activ e Famotidine 20 MG Oral Tablet (Pepcid) Take by mouth 1 Tablet as needed before bedtime for Heartburn. 90 Tablet 1 02/19/2022 Active Omeprazole 20 MG Oral Capsule Delayed Release (PriLOSEC)Indicatio ns:Gastroesophageal reflux disease without esophagitis TAKE 1 CAPSULE BY MOUTH EVERY DAY 1 HOUR BEFORE FIRST MEAL OF THE DAY 90 Capsule 3 06/06/2023 Active Nystatin 927378 UNIT/GM External Powder (Nystop) Apply topically to affected area 3 times a day. For up to 2 weeks in a row. 60 g 2 08/23/2023 Active Ondansetron HCl 4 MG Oral Tablet (Zofran) Take 1 Tablet by mouth every 8 hours as needed for Nausea. 20 Tablet 08/23/2023 Active Meclizine HCl 25 MG Oral Tablet (Antivert)Indicatio ns:Vertigo Take 1 Tablet by mouth 3 times a day as needed for Dizziness. 30 Tablet 08/23/2023 Active Zoster Vac Recomb Adjuvanted 50 MCG/0.5ML Intramuscular Suspension Reconstituted (Shingrix) Inject 0.5 mL into a large muscle now and repeat dose in 60 to 180 days 1 Each 1 08/23/2023 Active predniSONE 10 MG Oral Tablet (Deltasone)Indicati ons:Dysfunction of left eustachian tube Take 4 tabs for 2 days, 3 tabs for 2 days, 2 tabs for 2 days 1 tab for 2 days 20 Tablet 08/23/2023 Active Simvastatin 10 MG Oral Tablet (Zocor)Indications: Hyperlipidemia with target LDL less than 100 Take 1 Tablet by mouth at bedtime. 90 Tablet 3 09/24/2023 Active Nystatin 618757 UNIT/ML Mouth/Throat Suspension Swish and swallow 5 mL in the morning and 5 mL at noon and 5 mL in the evening and 5 mL before bedtime. For thrush.. 240 mL 1 10/11/2023 Active Sodium Hyaluronate 60 MG/3ML Intra-articular Prefilled Syringe (Durolane) Inject contents of prefilled syringe into the bilateral knee joints once for 1 dose. 6 mL 11/18/2023 Active amLODIPine Besylate 10 MG Oral Tablet (Norvasc)Indication s:Essential hypertension with goal blood pressure less than 140/90 TAKE 1 TABLET BY MOUTH EVERY DAY IN THE MORNING 90 Tablet 3 12/24/2023 Active amLODIPine Besylate 10 MG Oral Tablet (Norvasc)Indication s:Essential hypertension with goal blood pressure less than 140/90 TAKE 1 TABLET BY MOUTH EVERY DAY IN THE MORNING 90 Tablet 1 06/05/2023 4 Discontinue d(Refill) documented as of this encounter (statuses as of 12/24/2023) Active Problems Problem Noted Date Diagnosed Date Sjogren's syndrome with dental involvement 08/18 History of gout 01/21/2019 Chronic midline low back pain without sciatica 0 01/21/2019 FH: breast cancer in first degree relative 11/13 Essential hypertension with goal blood pressure less than 130/80 04/23/2016 OA (osteoarthritis) of knee 02/04/2014 Hyperlipidemia with target LDL less than 100 Obesity, Class I, BMI 30.0-34.9 (see actual BMI) 09/01/2009 Overview: Per Obesity Taxonomy Chronic non-seasonal allergic rhinitis 2 Esophageal reflux documented as of this encounter (statuses as of 12/24/2023) Resolved Problems Problem Noted Date Diagnosed Date Resolved Date Stage 3a chronic kidney disease 07/26/2020 08/22/2022 MEDICATION USE AGREEMENT 05/28/2017 Controlled substance agreement signed 05/28/2017 07/25/2020 Rhinitis, nonallergic, chronic 07/19/2011 05/28/2017 Primary localized osteoarthr osis of pelvic region or thigh 06/16/2010 05/28/2017 Dyslipidemia, goal LDL below 160 08/07/2009 12/19/2011 Dyslipidemia, goal to be determined 05/17/2009 08/07/2009 Overview: Per Lipid Taxonomy. HTN, goal below 140/90 04/15/200904/23 Overview: Modified per HTN Taxonomy. Flat foot(734) 02/20/2007 09/16/2007 Localized, primary osteoarth ritis of ankle or foot 02/20/2007 05/28/2017 Other atopic dermatitis 08/19/200601/09 Overview: ICD-10 update of inactive term PURE HYPERCHOLESTEROLEM 01/09/200601/2009 Overview: Per Lipid Taxonomy. ADVANCE DIRECTIVE INFORMATION 04/25/2005 05/28/2017 Overview: No, Advance Directive brochure given to patient at prior appointment. LOC PRIM [id number] 01/05/200501/09 BENIGN HYPERTENSION 12/22/2001 04/15/20 09 Overview: Modified per HTN Taxonomy. Major depressive disorder Overview: ICD-10 update of inactive term GENERALIZED ANXIETY DIS 01/2008 OBESITY, UNSPECIFIED 010 Overview: Per Obesity Taxonomy Internal hemorrhoids 008 Internal hemorrhoids with other complication 09/16/2007 documented as of this encounter (statuses as of 12/24/2023) Immunizations Name Administration Dates Next Due COVID-19 mRNA, LNP-s, No Pre serve, 2-Dose Series ([employer]) 03/04/2021,02/24/2021,2020,06/14 COVID-19, LNP-s, No Preserve , Nba-sucrose, Ages 12+ (Pfizer) 09/08/2021 COVID-19, MRNA-LNP, 23-24, P F, 30 MCG/0.3 mL, 12 YRS AND ABOVE, IM (PFIZER-Comirnaty) 03/01/2023 Pneumococcal Conjugate Vacc, 13 Valent (Prevnar) 08/07/2017 Pneumococcal Polysaccharide PPV23 (Pneumovax) 01/21/2019 Seasonal Influenza Vac, Quad , Cell Cult, PF, 6 Mos and Up, IM, (Flucelvax Quad) 03/10/2022 Seasonal Influenza, PF, 6 M & above, IM , (FluLaval or Fluzone) 03/10/2019,03/10/2017 Seasonal Influenza, Quadriva lent Hd (Fluzone Hd) 03/22/2023 Seasonal Influenza, Quadriva lent Hd, 65+ Yrs 03/10/2021,03/10/2020 Seasonal Influenza, Quadriva lent, No Preserve, Peds 03/10/2018 Seasonal Influenza, Split, I IV3, With Preserve, Inj 04/10/2016,03/24/2015,03/10/2014,03/10,03/10/2012,03/10/2011,03/10/2010 ,05/16/2009 TDAP (age 10 and older)(Boostrix) 03/12/2017 TDAP, Age 7 and older, IM (Adacel) 02/26/2008 documented as of this encounter Social History Tobacco Use Types Packs/Day Years Used Date Smoking Tobacco: Never Smokeless Tobacco: Never Alcohol Use Standard Drinks/Week Comments No 0 (1 standard drink = 0.6 oz pur e alcohol) PHQ-2 Answer Date Recorded PHQ Adult Total Score 0 08/22/2022 Utilities Answer Date Recorded Do you have trouble paying y our heating, water, or electric bill? (Adult - for ages 18 years and over) Not on file 11/26/2023 Is your family able to pay t he heat, water, or electric bill? (Household - for ages 0-17 years) Not on file 11/26/2023 Does your family have access to good internet? (Household - for ages 0-17 years) Not on file 11/26/2023 Social Connections Answer Date Recorded How often do you feel lonely or isolated from those around you? (Adult - for ages 18 years and over) Not on file 11/26/2023 Sex and Gender Information Value Date Recorded Sex Assigned at Not on file Gender Identity Not on file Sexual Orientation Not on file Job Start Date Occupation Industry Not on file Not on file Not on file documented as of this encounter Miscellaneous Notes * Telephone Encounter - Cresencio Timmons DO - 12/24/2023 12:57 PM EDTSigned Prescriptions: Disp Refills amLODIPine Besylate 10 MG Oral Tablet (Nor*90 Tab*3 Sig: TAKE 1 TABLET BY MOUTH EVERY DAY IN THE MORNING Authorizing Provider: CRESENCIO TIMMONS * Telephone Encounter - Renetta Bertrand RN - 12/24/2023 11:39 AM EDTPending Prescriptions: Disp Refills amLODIPine Besylate 10 MG Oral Tablet (Nor*90 Tab*1 Sig: TAKE 1 TABLET BY MOUTH EVERY DAY IN THE MORNING * Telephone Encounter - Halley Rojo, YUDI - 12/24/2023 11:33 AM EDT Did you pend patient's preferred pharmacy and medication before forwarding?yes Pharmacy: Pending Prescriptions: Disp Refills amLODIPine Besylate 10 MG Oral Tablet (No*90 Tab*1 Last Visit: 08/23/2023 (in office), Visit date not found (telemedicine) Next Visit: 03/27/2024 If no future appointments scheduled, and last appointment is greater than a year ago, please schedule patient for a follow-up appointment Last date the medication was ordered: 06.05.23 Is this request for a controlled substance?No Urine Drug Screen: Results for orders placed or performed in visit on 07/15/18 OPIOIDS/BENZO COMPLIANCE MONITORING W/INTERP Result Value COMPLIANCE INTERP (NOTE) URINE DRUG SCREEN RESULT Amphetamine REFER TO CONFIRMATION RESULT (A) Barbiturates NEGATIVE Benzodiazepines NEGATIVE Cannabinoids NEGATIVE Cocaine Metabolite NEGATIVE METHADONE METABOLITE NEGATIVE Morphine / Codeine NEGATIVE OXYCODONE NEGATIVE COMMENT THE ABOVE SCREENING RESULTS ARE PRESUMPTIVE AND CAN ONLY BE USED FOR MEDICAL PURPOSES. CONFIRMATORY TESTING IS AVAILABLE UPON REQUEST. Cutoff Concentration URINE VALID INTERP NORMAL CREATININE NANCY 304 NITRITE NANCY 44 pH NANCY 5.3 Patient Phone Numbers Labs: Lab Results Component Value Date/Time CREAT 1.0 08/23/2023 09:41 AM CREAT 1.0 02/19/2020 08:51 AM POTASSIUM 3.7 08/23/2023 09:41 AM POTASSIUM 4.7 02/19/2020 08:51 AM TSH 2.14 08/23/2023 09:41 AM TSH 3.79 01/29/2013 08:51 AM LDLCALC 85 02/12/2023 07:27 AM LDLCALC 104 01/22/2020 10:05 AM LDLDIRECT NOT APPLICABLE 01/22/2020 10:05 AM LDLDIRECT 103 (H) 01/20/2007 08:48 AM ALT 21 02/13/2022 07:58 AM ALT 16 01/22/2020 10:05 AM HGBA1C 5.2 06/01/2015 07:40 AM documented in this encounter Plan of Treatment Upcoming Encounters Date Type Department Care Team (Late st Contact Info) Description 03/09/2024 9:00 AM EDT Imaging Radiology [address] [place] [address] 03/27/2024 8:50 AM EDT Office Visit Family Medicine [address] [place] [phone] Cresencio Timmons[address] [place] [address] Scheduled Procedures Name Priority Associated Diagnoses Date/Ti me COLONOSCOPY FLEXIBLE PROXIMA L DIAGNOSTIC Recall History of colonic polyps Health Maintenance Due Date Last Done Comments Cologuard 1997 Sigmoidoscopy 1997 Fecal Occult Blood Test 08/30/2007 08/29/2006 COVID-19 Vaccine ( season) 2023 03/01/2023, 09/08/2021, 03/04/2021, Additional history exists Depression Screening 08/23/2023 08/22/2022 Zoster Vaccines (2 of 2) 12/10/2023 10/15/2023 Influenza Vaccine (FLU shot) (#1) 2024 03/22/2023, 03/22/2023, 03/10/2022, Additional history exists Mammogram 02/29/2024 02/28/2023, 02/09, 01/31/2022, Additional history exists GFR 08/22/2024 08/23/2023, 03/11/2022, 02/13/2022, Additional history exists DXA Scan 01/27/2025 01/27/2018 Albumin/Creatinine Ratio 08/13/2025 023, 08/18/2021, 02/19/2020, Additional history exists DTaP,Tdap,and Td Vaccines (3 - Td or Tdap) 03/12/2027 03/12/2017, 02/26/2008 Colonoscopy 08/25/2027 08/24/2022, 08/08, 02/15/2017, Additional history exists Colorectal Cancer Screening 08/25/2027 Lipid Panel 02/13/2028 02/12/2023, 11/2021, 02/01/2021, Additional history exists *BASELINE EKG FOR HTN Completed 01/19/2011 Pneumococcal Vaccine: 65+ Years Completed 01/21/2019, 08/07/2017 RETIRED - COLONOSCOPY-EVERY 5 YRS AGES 18-100 Discontinued 08/24/2022, 08/24/2022, 02/15/2017, Additional history exists HPV (Gardasil) Vaccine Aged Out No lo nger eligible based on patient's age to complete this topic Hepatitis B Vaccine Aged Out No longe r eligible based on patient's age to complete this topic MENINGOCOCCAL (MENACTRA/MENVEO) Aged Out No longer eligible based on patient's age to complete this topic documented as of this encounter Medical Devices Not on filedocumented as of this encounter Visit Diagnoses Diagnosis Essential hypertension with goal blood pressure less than 140/90 documented in this encounter Care Teams Content Specialist Relationship Specialty Start Date End Date Cresencio Timmons DO [address] [place] [address] [place] [address] PCP - General Internal Medicine 06/12/17 documented as of this encounter
--- OUTSIDE RECORDS SUMMARY | 2024-03-01 10:30 | External Medical Summary | Summary of Care ---
Author Name Unknown Organization [facility] Address [address] [facility] [address] Phone [phone] Care Team Providers Care Addiction Counselor Name Role Phone Cresencio Timmons DO Primary Care Provider Reason for Visit * Reason Onset Date Comments Medication Refill 09/24/2023 Encounter Details Date Type Department Care Team (Late st Contact Info) Description 09/24/2023 Refill Family Medicine [address] [phone] Cresencio Timmons [address] [place] [address] Hyperlipidemia with target LDL less than 100 Allergies Active Allergy Reactions Criticality Noted Date Comments Doxycycline Hyclate 09/15/2001 GI upset Hydrochlorothiazide W-Triamterene 08/27/2001 severe hypokalemia Lisinopril Other (Please comment) Low 11/28/2006 cough documented as of this encounter (statuses as of 09/24/2023) Medications Medication Sig Dispensed Refills Start Date End Date Status CALCIUM + D 600-200 MG-UNIT PO TABS 1 tablet daily 0 12/17/2005 Activ e Famotidine 20 MG Oral Tablet (Pepcid) Take by mouth 1 Tablet as needed before bedtime for Heartburn. 90 Tablet 1 02/19/2022 Active amLODIPine Besylate 10 MG Oral Tablet (Norvasc)Indication s:Essential hypertension with goal blood pressure less than 140/90 TAKE 1 TABLET BY MOUTH EVERY DAY IN THE MORNING 90 Tablet 1 06/05/2023 Active Omeprazole 20 MG Oral Capsule Delayed Release (PriLOSEC)Indicatio ns:Gastroesophageal reflux disease without esophagitis TAKE 1 CAPSULE BY MOUTH EVERY DAY 1 HOUR BEFORE FIRST MEAL OF THE DAY 90 Capsule 3 06/06/2023 Active Nystatin 148176 UNIT/GM External Powder (Nystop) Apply topically to affected area 3 times a day. For up to 2 weeks in a row. 60 g 2 08/23/2023 Active Ondansetron HCl 4 MG Oral Tablet (Zofran) Take 1 Tablet by mouth every 8 hours as needed for Nausea. 20 Tablet 0 08/23/2023 Active Meclizine HCl 25 MG Oral Tablet (Antivert)Indicatio ns:Vertigo Take 1 Tablet by mouth 3 times a day as needed for Dizziness. 30 Tablet 0 08/23/2023 Active Zoster Vac Recomb Adjuvanted 50 [...] 1 tab for 2 days 20 Tablet 0 08/23/2023 Active Vitamin D3 1.25 MG (92279 UT) Oral Capsule (Cholecalciferol) Take 1 Capsule by mouth once a week. 12 Capsule 0 08/24/2023 4 Active Simvastatin 10 MG Oral Tablet (Zocor)Indications: Hyperlipidemia with target LDL less than 100 Take 1 Tablet by mouth at bedtime. 90 Tablet 3 09/24/2023 Active Simvastatin 10 MG Oral Tablet (Zocor)Indications: Hyperlipidemia with target LDL less than 100 Take 1 Tablet by mouth at bedtime. 90 Tablet 3 12/10/2022 4 Discontinue d(Refill) documented as of this encounter (statuses as of 09/24/2023) Active Problems Problem Noted Date Diagnosed Date [...] as of this encounter (statuses as of 09/24/2023) Resolved Problems Problem Noted Date Diagnosed Date [...] to patient at prior appointment. LOC PRIM [id number] 01/05/200501/09 BENIGN HYPERTENSION 12/22/2001 04/15/20 09 Overview: Modified per HTN Taxonomy. Major depressive disorder Overview: ICD-10 update of inactive term GENERALIZED ANXIETY DIS 01/2008 OBESITY, UNSPECIFIED 010 Overview: Per Obesity Taxonomy Internal hemorrhoids 008 Internal hemorrhoids with other complication 09/16/2007 documented as of this encounter (statuses as of 09/24/2023) Immunizations Name Administration Dates Next Due COVID-19 mRNA, LNP-s, No Pre serve, 2-Dose Series ([employer]) 03/04/2021,02/24/2021,2020,06/14 COVID-19, LNP-s, No Preserve , Nba-sucrose, [...] ,05/16/2009 TDAP (age 10 and older)(Boostrix) 03/12/2017 TDAP (age 11 and older)(Adacel) 02/26/2008 documented as of this encounter Social History Tobacco Use Types Packs/Day Years Used Date Smoking Tobacco: Never Smokeless Tobacco: Never Alcohol Use Standard Drinks/Week Comments No 0 (1 standard drink = 0.6 oz pur e alcohol) PHQ-2 Answer Date Recorded PHQ Adult Total Score 0 08/22/2022 Sex and Gender Information Value Date Recorded Sex Assigned at Not on file Gender Identity Not on file Sexual Orientation Not on file Job Start Date Occupation Industry Not on file Not on file Not on file documented as of this encounter Miscellaneous Notes * Telephone Encounter - Cresencio Timmons DO - 09/24/2023 4:22 PM EDTSigned Prescriptions: Disp Refills Simvastatin 10 MG Oral Tablet (Zocor) 90 Tab*3 Sig: Take 1 Tablet by mouth at bedtime. Authorizing Provider: CRESENCIO TIMMONS * Telephone Encounter - Renetta Bertrand RN - 09/24/2023 1:26 PM EDTPending Prescriptions: Disp Refills Simvastatin 10 MG Oral Tablet (Zocor) 90 Tab*3 Sig: Take 1 Tablet by mouth at bedtime. * Telephone Encounter - Yolanda Brice OSA - 09/24/2023 11:25 AM EDT Did you pend patient's preferred pharmacy and medication before forwarding?yes Pharmacy: [id number] Pending Prescriptions: Disp Refills Simvastatin 10 MG Oral Tablet (Zocor) 90 Tab*3 Sig: Take 1 Tablet by mouth at bedtime. Last Visit: 08/23/2023 (in office), Visit date not found (telemedicine) Next Visit: 03/27/2024 If no future appointments scheduled, and last appointment is greater than a year ago, please schedule patient for a follow-up appointment Last date the medication was ordered: 12/11/23 Is this request for a controlled substance?No [...] Description 03/09/2024 9:00 AM EDT Imaging Radiology [address] [place] [address] 03/27/2024 8:50 AM EDT Office Visit Family Medicine [address] [place] [phone] [address] [place] [address] Scheduled Procedures Name Priority Associated Diagnoses Date/Ti me COLONOSCOPY FLEXIBLE PROXIMA L DIAGNOSTIC Recall History of colonic polyps Health Maintenance Due Date Last Done Comments Zoster Vaccines (1 of 2) 2002 Depression Screening 08/23/2023 08/22/2022 Mammogram 02/29/2024 02/28/2023, 01/09, 01/31/2022, Additional history exists GFR 08/22/2024 08/23/2023, 11/2022, 02/13/2022, Additional history exists DXA Scan 01/27/2025 01/27/2018 Albumin/Creatinine Ratio 08/13/2025 023, 08/18/2021, 02/19/2020, Additional history exists DTaP,Tdap,and Td Vaccines (3 - Td or Tdap) 03/12/2027 03/12/2017, 02/26/2008 COLONOSCOPY-EVERY 5 YRS AGES 18-100 08/25/2027 08/24/2022, 08/24/2022, 02/15/2017, Additional history exists Lipid Panel 02/13/2028 02/12/2023, 11/2021, 02/01/2021, Additional history exists Pneumococcal Vaccine: 65+ Years Completed 01/21/2019, 08/07/2017 COVID-19 Vaccine Completed 03/01/2023, 06/2021, 03/04/2021, Additional history exists Influenza Vaccine (FLU shot) Completed , 03/22/2023, 03/10/2022, Additional history exists GARDASIL-HPV IMMUNIZATION SERIES Aged Out No longer eligible based on patient's age to complete this topic Hepatitis B Aged Out No longer eligi ble based on patient's age to complete this topic MENINGOCOCCAL (MENACTRA/MENVEO) Aged Out No longer eligible based on patient's age to complete this topic documented as of this encounter Medical Devices Not on filedocumented as of this encounter Visit Diagnoses Diagnosis Hyperlipidemia with target LDL less than 100 Other and unspecified hyperlipidemia documented in this encounter Care Teams Addiction Counselor Relationship Specialty Start Date End Date Cresencio Timmons DO [address] [place] [address] [place] [id number] PCP - General Internal Medicine 06/12/17 documented as of this encounter
[2024-03-01] MEDS: DEXAMETHASONE SOD INJ 4 MG/ML VIAL IV STA (10:39)
[2024-03-01 10:49] LABS: iSTAT Creatinine 1.7 mg/dl (0.6-1.3); iSTAT Hemoglobin 14.6 g/dl (12.0-16.0); iSTAT Ionized Calcium 1.08 mmol/l (1.12-1.32); iSTAT Potassium 4.6 mmol/L (3.3-5.0)
[2024-03-01 10:52] LABS: Basophils # (auto) 0.02 K/uL (0.00-0.20); Basophils % (auto) 0.2 %; Hemoglobin 13.8 g/dl (12.0-16.0); Immature Granulocytes # (auto) 0.07 K/uL (0.01-0.20); Immature Granulocytes % (auto) 0.7 %; Lymphocytes # (auto) 0.38 K/uL (1.20-3.40); Lymphocytes % (auto) 3.9 %; Mean Corpuscular Hemoglobin 29.2 pg (25.0-34.0); Mean Corpuscular Hgb Conc 31.4 g/dL (32.0-36.0); Mean Corpuscular Volume 93.2 fL (80.0-100.0); Mean Platelet Volume 9.8 fL (9.4-12.4); Monocytes % (auto) 7.2 %; Platelet Count 306 K/uL (130-400); RDW Coefficient of Variation 13.2 % (11.5-14.5); RDW Standard Deviation 45.1 fL (36.4-46.3); Red Blood Count 4.72 M/uL (4.20-5.40); White Blood Count 9.67 K/ul (4.8-10.8)
--- NOTE | 2024-03-01 10:53 | XRay Report ---
XR chest 1V portable CLINICAL HISTORY: neuro deficit, acute stroke suspected COMPARISON STUDY: Chest radiograph February 18, 2023. FINDINGS: A density projecting over the heart on this study is likely on the patient. Lung volumes ar e mildly diminished. There is no pneumothorax or pleural effusion. Cardiomegaly is noted. There is mi ld interstitial thickening. There is no lobar consolidation. Minimal left basilar opacity is present. IMPRESSION: 1. Cardiomegaly. Pulmonary vascular congestion with possible mild pulmonary edema. 2. Left basilar opacities which favor atelectasis. 3. Hypoventilatory study. ACT 112: Negative or not required by law. Electronically signed by: Mohit Lewis M.D. 03/01/2024 10:51 AM
[2024-03-01] MEDS: OPTIRAY 320 125ml IV ONE (11:02)
[2024-03-01 11:09] LABS: Alanine Aminotransferase 193 U/L (7-52); Albumin Globulin Ratio 1.2 (0.9-2); Albumin Level 4.1 gm/dl (3.4-5.0); Alkaline Phosphatase 107 U/L (34-104); Anion Gap 9 (3-11); Aspartate Aminotransferase 194 U/L (13-39); BUN Creatinine Ratio 14.6 (10-20); Bilirubin,Total 0.4 mg/dl (0.2-1.0); Blood Urea Nitrogen 23 mg/dl (6-23); Calcium 8.6 mg/dl (8.6-10.3); Carbon Dioxide 28 mmol/L (21-32); Chloride 100 mmol/L (98-107); Est GFR (Non-African American) 32.8 ml/min; Globulin 3.3 gm/dl (2.5-4.0); Glucose 157 mg/dl (70-99(Fasting)); Potassium 4.7 mmol/L (3.5-5.1); Sodium 137 mmol/L (136-145); Total Protein 7.4 gm/dl (6.0-8.3)
--- NOTE | 2024-03-01 11:09 | CT Scan Report ---
CT OF THE HEAD WITHOUT CONTRAST CLINICAL HISTORY: neuro deficit, acute stroke suspected COMPARISON STUDY: Head CT and MRI of the brain February 18, 2023. TECHNIQUE: Helical axial images of the head were obtained without IV contrast. Automated exposure con trol was utilized for the study. A dose lowering technique was utilized adhering to the principles o f ALARA. FINDINGS: No acute intracranial hemorrhage, midline shift or mass effect is present. The ventricular system is unremarkable. The basal cisterns are patent. No extra-axial collections are present. There are no findings to suggest acute dural sinus thrombosis or acute territorial infarct. No significant calvarial abnormalities are present. IMPRESSION: No acute intracranial findings. ACT 112: Negative or not required by law. Electronically signed by: Mohit Lewis M.D. 03/01/2024 11:08 AM
[2024-03-01 11:19] LABS: Partial Thromboplastin Time 27 Seconds (21-31); Prothrombin Time 11.1 Seconds (9.0-12.0)
--- NOTE | 2024-03-01 11:19 | CT Scan Report ---
CT ANGIOGRAPHY OF THE NECK WITH CONTRAST CLINICAL HISTORY: neuro deficit, acute stroke suspected COMPARISON STUDY: CTA of the neck February 18, 2023. Technique: CT angiography of the carotid and vertebral arteries was obtained using Optiray and 3D rec onstruction on an independent workstation. NASCET criteria was utilized. Automated exposure control was utilized for the study. A dose lowering technique was utilized adhering to the principles of ALA RA. CT DOSE: 1715.78 mGy.cm Findings: This exam is significantly compromised by motion artifact. No cervical spine fractures are identified. There are no fluid collections within neck. Prominent bilateral level 4 cervical lymph no kyree are unchanged. These are likely benign. Major vessels within the neck are suboptimally assessed o n this exam due to motion artifact but are patent. No definite stenoses are identified. There is mild plaque within the proximal right internal carotid artery without stenosis. There is no definite diss ection. There is no intracranial aneurysm. IMPRESSION: Exam significantly compromised by motion artifact. Major vessels within neck grossly buck nt. No definite stenoses identified. ACT 112: Negative or not required by law. Electronically signed by: Mohit Lewis M.D. 03/01/2024 11:17 AM
--- NOTE | 2024-03-01 11:21 | CT Scan Report ---
CTA ANGIOGRAPHY OF THE HEAD CLINICAL HISTORY: neuro deficit, acute stroke suspected COMPARISON STUDY: CTA of the head February 18, 2023. TECHNIQUE: Helical axial images of the head were obtained following uneventful intravenous administr ation of 120 cc of Optiray. Sagittal and coronal reconstructions were viewed as well as maximal inten sity projections on an independent 3-D workstation. Automated exposure control was utilized for the study. A dose lowering technique was utilized adhering to the principles of ALARA. FINDINGS: This exam is significantly compromised by motion artifact. No acute intracranial hemorrhage was identified on the head CT which will be reported separately. The ventricular system is normal. T he basal cisterns are patent. There are no extra-axial collections. The bilateral M1 and M2 segments are grossly patent. As before, both anterior cerebral arteries arise from the left internal carotid a rtery. Posterior circulation is grossly intact. There is no intracranial aneurysm. No large vessel oc clusion. There is persistence of the right posterior cerebral artery. IMPRESSION: Exam significantly compromised by motion artifact. No large vessel occlusion. ACT 112: Negative or not required by law. Electronically signed by: Mohit Lewis M.D. 03/01/2024 11:20 AM
[2024-03-01] MEDS: FUROSEMIDE 40 MG/4 ML VIAL IV ONE (11:39)
[2024-03-01 12:18] LABS: Influenza A virus by PCR Negative (Neg); Influenza B virus by PCR Negative (Neg); RSV by PCR Negative (Neg); SARS CoV2 RNA(COVID-19) Ceph POSITIVE (Negative)
[2024-03-01 12:21] LABS: Appearance Urine Cloudy (Clear); Bilirubin Urine Negative (Negative); Blood Urine Negative (Negative); Cast Urine Automated >20 /lpf (0-2); Color Urine Yellow; Glucose Urine UA Negative (Negative); Granular Casts Urine Present /lpf (None Prsent); Hyaline Casts Urine Present /lpf (None Presnt); Ketones Urine Negative (Negative); Leukocyte Esterase Urine Negative (Negative); Mucus Urine Present (None Prsent); Nitrite Urine Negative (Negative); Protein Urine 1+ (Negative); RBC Urine Automated 0-2 /hpf (0-2); Specific Gravity Urine > 1.045 (1.000-1.030); Urobilinogen Urine Negative (Negative); WBC Urine Automated 0-5 /hpf (0-5); pH Urine 5.5 (4.5-7.5)
[2024-03-01 12:30] LABS: Bacteria Urine Automated 1+ (None Seen)
--- NOTE | 2024-03-01 12:30 | History & Physical Report ---
Date of Service March 01, 2024 Assessment & Plan (1) Stroke-like symptoms: (2) Acute respiratory failure with hypoxia and hypercapnia: Plan Patient is a 73-year-old female with past medical history significant for Sjogren's, GERD, hypertension, hyperlipidemia, chronic allergies, osteoarthritis of the knee, chronic low back pain who presents for with concern for altered mental status and difficulty with speech and movement at home. Patient was a stroke alert on arrival. History obtained from patient's daughters at bedside. States that she has been having URI symptoms for the past week, went to urgent care yesterday. States she was diagnosed with COVID at that time patient's last known well was about 9 PM last night when she went to bed. Daughter states she checked on her this morning and noted she was unresponsive and staring into space, unable to move her extremities or follow other commands. daughter states at baseline she goes to the 4 times a week, still works, works as a nurse. Acute metabolic encephalopathy Acute Hypoxic and hypercarbic Respiratory Failure COVID-19 infection Patient presenting as a stroke alert and in respiratory distress Head CT, head and neck CTA all unremarkable MRI brain pending VBG pH of 7.30, pCO2 of 59 and HCO3 of 29 Lactate normal and procalcitonin pending COVID-positive Chest x-ray with concern for pulmonary vascular congestion and left basilar opacity favoring atelectasis CT chest pending, given MIROSLAVA see below we will avoid contrast at this time with a CTA. UA suggestive of infection, urine culture pending Altered mental status likely in setting of COVID infection and complicated UTI low suspicion for stroke at this time, follow-up brain MRI (see below) Continue with Decadron daily and remdesivir treatment for COVID Patient initially requiring high flow oxygen on arrival, wean as tolerated Continue to monitor on telemetry, PCU status Given severity of symptoms, pulmonology consulted, appreciate further recs. Question additional underlying pathology such as YUDI or obesity hypoventilation syndrome. Stroke-like symptoms Patient presenting as a stroke alert Head CT, head and neck CTA all unremarkable MRI brain pending Echo from February 2023 noted no shunt PT/OT and speech eval pending Continue to monitor on telemetry Complicated UTI UA suggestive of infection, urine culture pending Will treat with empiric Rocephin Follow culture and adjust antibiotics as needed Elevated troponin Demand ischemia vs. NSTEMI Trop elevated at 351, repeat 480.6 EKG NSR without signs of acute ischemia Repeat echo pending Trend trops to peak Cardiology consulted appreciate recs Acute decompensated HFpEF Echo from February 2023 reviewed Patient with grade 1 diastolic heart failure at that time, EF 55 to 60%, trace AR, mild TR, borderline LVH, no shunt Current chest x-ray as above with concern for pulmonary vascular congestion and mild pulmonary edema CT chest pending BNP elevated at 965 Repeat echo pending Patient received IV Lasix 40 mg in the emergency room Will hold off on further diuretics given MIROSLAVA Consult cardiology, appreciate further recs Acute Kidney Injury Creatinine acutely elevated at 1.57, up from baseline of 0.9-1.0 Patient also received IV Lasix 40 mg in the emergency room for treatment of CHF exacerbation Will consult nephrology given MIROSLAVA in setting of CHF with need for diuresis Avoid nephrotoxic meds as able Continue to monitor with a.m. labs Hypocalcemia Ionized calcium of 1.07 Supplemented with IV calcium gluconate Continue to monitor Elevated liver enzymes Liver enzymes elevated, T. bili normal at 0.4, AST 194, ALT 193, alk phos 107 Liver ultrasound ordered and pending Likely elevated in setting of fluid overload Case discussed with pharmacy about use of remdesivir in this setting Continue to trend with a.m. labs Continue other home meds as ordered Diet: Full liquids, advance as mental status improves DVT prophylaxis: Heparin subcu Dispo: Admit to PCU/telemetry History of Present Illness Chief Complaint: AMS Primary Care Provider: Wendy Clay DO Patient is a 73-year-old female with past medical history significant for Sjogren's, GERD, hypertension, hyperlipidemia, chronic allergies, osteoarthritis of the knee, chronic low back pain who presents for with concern for altered mental status and difficulty with speech and movement at home. Patient was a stroke alert on arrival. History obtained from patient's daughters at bedside. States that she has been having URI symptoms for the past week, went to urgent care yesterday. States she was diagnosed with COVID at that time and symptomatic treatment was recommended. Patient's last known well was about 9 PM last night when she went to bed. Daughter states she checked on her this morning and noted she was unresponsive and staring into space, unable to move her extremities or follow other commands and unable to speak. Daughter states at baseline she goes to the [employer] 4 times a week, still works, works as a nurse. At the time of exam, patient was alert and oriented x 2. While she knew her name and where she was at [facility], she was unsure of the year and date. Per daughters at bedside this is abnormal. Patient states that she is not having any trouble breathing, denies chest pain or palpitations. She does note that her mouth is dry and per daughters this is consistent with her diagnosis of Sjogren's. daughters and patient agree that she is a full code at this time. Allergies Allergy/AdvReac Type Severity Reaction Status Date / Time doxycycline Allergy Unknown Unknown - Unverified 03/01/24 11:47 On file w/ [facility] lisinopril AdvReac Unknown Cough Verified 03/01/24 11:47 Home Medications Medication Instructions Recorded Confirmed Type omeprazole 20 mg capsule,delayed 20 mg PO QAM 02/18/23 03/01/24 History release simvastatin 10 mg tablet 10 mg PO HS 02/18/23 03/01/24 History aspirin 81 mg tablet,delayed 81 mg PO QAM #30 tabs 02/19/23 03/01/24 Rx release amlodipine 10 mg tablet (Norvasc) 10 mg PO QAM 05/06/23 03/01/24 History cholecalciferol (vitamin D3) 1,250 1,250 mcg PO WK 03/01/24 03/01/24 History mcg (50,000 unit) capsule Past Med/Surg History Problem List (Updated 03/01/24 @ 13:55 by Gabbie Waters MD) Acute respiratory failure with hypoxia and hypercapnia Stroke-like symptoms (Acute) Stroke-like symptoms GERD (gastroesophageal reflux disease) HTN (hypertension) (Chronic) HLD (hyperlipidemia) (Chronic) Sjogren syndrome with dental involvement Medical History History of COVID-19 06/2021 no hosp; resolved Anxiety GERD (gastroesophageal reflux disease) Gout HX Sjogren syndrome with dental involvement HLD (hyperlipidemia) HTN (hypertension) Surgical History Hx of cataract extraction Hx of colonoscopy Hx of arthroscopy of left knee S/P tonsillectomy and adenoidectomy History of cholecystectomy S/P right knee arthroscopy Family History Other Alzheimer disease Breast cancer Diabetes Heart disease Social History Smoking Status: Never smoker Second Hand Exposure: No; Do You Dip or Chew Tobacco: No; Hx Alcohol Use: No Hx Substance Use: No Preferred Language: Bengali Communication Ability: Effective [employer] Required: No Beliefs That Will Affect Care: None Current Living Situation: Spouse Feels Safe at Home: Yes Assistive Devices: Glasses Physical Exam Physical Exam: General: Alert, orientedx2 at . No acute distress Psych: Appropriate mood and affect Neuro: alert at time of exam, oriented x 2 HEENT: NC/AT, NC in nares CV: RRR Resp: Breath sounds decreased bilaterally, no increased effort of breathing at the time of exam, on hi vero oxygen Abdomen: Soft, nontender Extremities: edema in lower extremities bilaterally. Results & Data Results & Data Vital Signs (Past 12 Hours) Vital Signs Temp Pulse Pulse Resp BP BP Pulse Ox 03/01/24 11:18 82 26 H 123/70 95 03/01/24 11:04 95 H 03/01/24 11:00 88 24 92 03/01/24 10:59 03/01/24 10:59 36.6 C 86 18 125/76 97 O2 Del Method O2 Flow Rate FiO2 03/01/24 11:18 High Flow Nasal Cannula 40 03/01/24 11:04 03/01/24 11:00 High Flow Nasal Cannula 40 80 03/01/24 10:59 High Flow Nasal Cannula 03/01/24 10:59 High Flow Nasal Cannula 40 85 Diagnostic Findings Chest X-Ray 03/01/24 10:25 XR chest 1V portable CLINICAL HISTORY: neuro deficit, acute stroke suspected COMPARISON STUDY: Chest radiograph February 18, 2023. FINDINGS: A density projecting over the heart on this study is likely on the patient. Lung volumes are mildly diminished. There is no pneumothorax or pleural effusion. Cardiomegaly is noted. There is mild interstitial thickening. There is no lobar consolidation. Minimal left basilar opacity is present. IMPRESSION: 1. Cardiomegaly. Pulmonary vascular congestion with possible mild pulmonary edema. 2. Left basilar opacities which favor atelectasis. 3. Hypoventilatory study. ACT 112: Negative or not required by law. Electronically signed by: Mohit Lewis M.D. 03/01/2024 10:[address] 03/01/24 10:25 CT OF THE HEAD WITHOUT CONTRAST CLINICAL HISTORY: neuro deficit, acute stroke suspected COMPARISON STUDY: Head CT and MRI of the brain February 18, 2023. TECHNIQUE: Helical axial images of the head were obtained without IV contrast. Automated exposure control was utilized for the study. A dose lowering technique was utilized adhering to the principles of ALARA. FINDINGS: No acute intracranial hemorrhage, midline shift or mass effect is present. The ventricular system is unremarkable. The basal cisterns are patent. No extra-axial collections are present. There are no findings to suggest acute dural sinus thrombosis or acute territorial infarct. No significant calvarial abnormalities are present. IMPRESSION: No acute intracranial findings. ACT 112: Negative or not required by law. Electronically signed by: Mohit Lewis M.D. 03/01/2024 11:08 AM Head CTA 03/01/24 10:25 CTA ANGIOGRAPHY OF THE HEAD CLINICAL HISTORY: neuro deficit, acute stroke suspected COMPARISON STUDY: CTA of the head February 18, 2023. TECHNIQUE: Helical axial images of the head were obtained following uneventful intravenous administration of 120 cc of Optiray. Sagittal and coronal reconstructions were viewed as well as maximal intensity projections on an independent 3-D workstation. Automated exposure control was utilized for the study. A dose lowering technique was utilized adhering to the principles of ALARA. FINDINGS: This exam is significantly compromised by motion artifact. No acute intracranial hemorrhage was identified on the head CT which will be reported separately. The ventricular system is normal. The basal cisterns are patent. There are no extra-axial collections. The bilateral M1 and M2 segments are grossly patent. As before, both anterior cerebral arteries arise from the left internal carotid artery. Posterior circulation is grossly intact. There is no intracranial aneurysm. No large vessel occlusion. There is persistence of the right posterior cerebral artery. IMPRESSION: Exam significantly compromised by motion artifact. No large vessel occlusion. ACT 112: Negative or not required by law. Electronically signed by: Mohit Lewis M.D. 03/01/2024 11:20 AM Neck CTA 03/01/24 10:25 CT ANGIOGRAPHY OF THE NECK WITH CONTRAST CLINICAL HISTORY: neuro deficit, acute stroke suspected COMPARISON STUDY: CTA of the neck February 18, 2023. Technique: CT angiography of the carotid and vertebral arteries was obtained using Optiray and 3D reconstruction on an independent workstation. NASCET criteria was utilized. Automated exposure control was utilized for the study. A dose lowering technique was utilized adhering to the principles of ALARA. CT DOSE: 1715.78 mGy.cm Findings: This exam is significantly compromised by motion artifact. No cervical spine fractures are identified. There are no fluid collections within neck. Prominent bilateral level 4 cervical lymph nodes are unchanged. These are likely benign. Major vessels within the neck are suboptimally assessed on this exam due to motion artifact but are patent. No definite stenoses are identified. There is mild plaque within the proximal right internal carotid artery without stenosis. There is no definite dissection. There is no intracranial aneurysm. IMPRESSION: Exam significantly compromised by motion artifact. Major vessels within neck grossly patent. No definite stenoses identified. ACT 112: Negative or not required by law. Electronically signed by: Mohit Lewis M.D. 03/01/2024 11:17 AM
[2024-03-01 13:05] LABS: Base Excess VBG 1.1 mEq/L; HCO3 VBG 29 mmol/L; Oxygen Saturation VBG < 60.0 %; PCO2 VBG 59 mmHg (38-50); PO2 VBG 32 mmHg
--- NOTE | 2024-03-01 13:44 | Emergency Department Note ---
History of Present Illness General Chief complaint: Stroke/CVA Symptoms Time Seen by Provider: 03/01/24 10:25 Source: family (Daughter) and EMS History of Present Illness Provider complaint: Strokelike symptoms 73-year-old female presents emergency department for strokelike symptoms. Patient's daughters and EMS are providing the history. According to them, the patient was last seen normal at 2100 last night. The daughter reports that she found the patient this morning and she cannot talk or move. Patient's daughter reports that the patient was reporting congestion and cough yesterday. She was diagnosed with COVID-19 at an outside urgent care. No blood thinners. Home Medications Medication Instructions Recorded Confirmed Type omeprazole 20 mg capsule,delayed 20 mg PO QAM 02/18/23 03/01/24 History release simvastatin 10 mg tablet 10 mg PO HS 02/18/23 03/01/24 History aspirin 81 mg tablet,delayed 81 mg PO QAM #30 tabs 02/19/23 03/01/24 Rx release amlodipine 10 mg tablet (Norvasc) 10 mg PO QAM 05/06/23 03/01/24 History cholecalciferol (vitamin D3) 1,250 1,250 mcg PO WK 03/01/24 03/01/24 History mcg (50,000 unit) capsule Allergies Allergy/AdvReac Type Severity Reaction Status Date / Time doxycycline Allergy Unknown Unknown - Unverified 03/01/24 11:47 On file w/ [facility] lisinopril AdvReac Unknown Cough Verified 03/01/24 11:47 Past Med/Surg History Problem List Stroke-like symptoms (Acute) Stroke-like symptoms GERD (gastroesophageal reflux disease) HTN (hypertension) (Chronic) HLD (hyperlipidemia) (Chronic) Sjogren syndrome with dental involvement Medical History History of COVID-19 06/2021 no hosp; resolved Anxiety Gout HX Surgical History Hx of cataract extraction Hx of colonoscopy Hx of arthroscopy of left knee S/P tonsillectomy and adenoidectomy History of cholecystectomy S/P right knee arthroscopy Family History Other Alzheimer disease Breast cancer Diabetes Heart disease Social History Smoking Status: Never smoker Second Hand Exposure: No; Do You Dip or Chew Tobacco: No; Hx Alcohol Use: No Hx Substance Use: No Preferred Language: Samoan Communication Ability: Effective Recreation Therapist Required: No Beliefs That Will Affect Care: None Current Living Situation: Spouse Feels Safe at Home: Yes Assistive Devices: Glasses Physical Exam Vital Signs Vital Signs - 24 hr 03/01/24 10:59 03/01/24 10:59 03/01/24 11:00 Temperature 36.6 C Temperature Source Oral Pulse Rate 86 Pulse Rate [Right Finger] 88 Pulse Rate from SpO2 Sensor Respiratory Rate 18 24 Respiratory Effort / Characteristics Non-Labored Spontaneous Spontaneous Labored Respiratory Depth Normal Blood Pressure 125/76 Blood Pressure [Right Arm] Blood Pressure Mean 92 Blood Pressure Mean [Right Arm] Blood Pressure Position Sitting Pulse Oximetry 97 92 Oxygen Delivery Method High Flow Nasal Cannula High Flow Nasal Cannula High Flow Nasal Cannula Oxygen Flow Rate 40 40 Fraction of Inspired Oxygen 85 80 SaO2/FiO2 Ratio 114 Sepsis Recent Fever Within 48 Hours No Sepsis New/Unexplained Change in Mental Status N/A Sepsis Action Taken by Nursing No Action Required Oxygen Flow Rate - Titration 40 Fraction of Inspired Oxygen - Titration 85 03/01/24 11:04 03/01/24 11:18 03/01/24 11:37 Temperature Temperature Source Pulse Rate 95 H 85 Pulse Rate [Right Finger] 82 Pulse Rate from SpO2 Sensor Respiratory Rate 26 H 24 Respiratory Effort / Characteristics Respiratory Depth Blood Pressure 131/83 Blood Pressure [Right Arm] 123/70 Blood Pressure Mean 89 Blood Pressure Mean [Right Arm] 87 Blood Pressure Position Pulse Oximetry 95 96 Oxygen Delivery Method High Flow Nasal Cannula High Flow Nasal Cannula Oxygen Flow Rate 40 40 Fraction of Inspired Oxygen SaO2/FiO2 Ratio Sepsis Recent Fever Within 48 Hours Sepsis New/Unexplained Change in Mental Status Sepsis Action Taken by Nursing Oxygen Flow Rate - Titration Fraction of Inspired Oxygen - Titration 03/01/24 12:15 03/01/24 12:16 03/01/24 13:03 Temperature Temperature Source Pulse Rate 81 Pulse Rate [Right Finger] 83 Pulse Rate from SpO2 Sensor 82 Respiratory Rate 19 22 Respiratory Effort / Characteristics Non-Labored Spontaneous Respiratory Depth Blood Pressure 109/75 Blood Pressure [Right Arm] Blood Pressure Mean 86 Blood Pressure Mean [Right Arm] Blood Pressure Position Pulse Oximetry 95 96 95 Oxygen Delivery Method Oxymask Oxymask Oxymask Oxygen Flow Rate 8 10 10 Fraction of Inspired Oxygen SaO2/FiO2 Ratio Sepsis Recent Fever Within 48 Hours Sepsis New/Unexplained Change in Mental Status Sepsis Action Taken by Nursing Oxygen Flow Rate - Titration Fraction of Inspired Oxygen - Titration Physical Exam GENERAL: Ill-appearing. HENT: Exam performed. -Head: Normocephalic and atraumatic. NECK: Normal range of motion. Neck supple. No JVD present. CV: Normal rate, regular rhythm, normal heart sounds and intact distal pulses. There is no peripheral edema. Palpable radial pulses bue. PULM/CHEST: Rhonchi bilaterally. Inspiratory rales bilaterally. ABD: The abdomen is soft. NEURO: NIHSS 18 (1a:1, 1b:2, 5a:2, 5b:2, 6a:3, 6b:3,7:2, 9:1, 10:1, 11:1) Course Course 1025: The patient was evaluated in room B1. A complete history and physical exam was performed Cardiac monitoring: An order was placed for continuous cardiac monitoring. The monitor shows a rate of 80 with sinus rhythm interpreted by me Patient hypoxic on arrival. Quickly transitioned to high flow nasal cannula. No code stroke was called as patient's last known normal was last night and the patient awoke with symptoms. Patient is hypoxic and with a recent COVID diagnosis patient was treated with Decadron 6 mg IV push. Patient be taken to CT for stroke workup. 1043: CT of the head viewed by me shows no ICH. 1150: Vital signs stable on high flow oxygen. On reassessment the patient is more alert and is now able to communicate on high flow oxygen. CT head, CTA angio head and neck negative. Patient's symptoms could be due to her profound hypoxia. Chest x-ray shows cardiomegaly with cephalization. Patient treated with Lasix 40 mg IV push also. [facility] Discussed case with Dr. Waters who stated she will evaluate the patient for admission. Administered Medications Discontinued Medications Dexamethasone (Dexamethasone Sod Inj 4 Mg/Ml Vial) 6 mg IV NOW STA Stop: 03/01/24 10:35 Last Admin: 03/01/24 10:39 Dose: 6 mg Documented By: HANYN Furosemide (Furosemide 40 Mg/4 Ml Vial) 40 mg IV ONE ONE Stop: 03/01/24 11:30 Last Admin: 03/01/24 11:39 Dose: 40 mg Documented By: CAPRICE Ioversol (Optiray 320 125ml) 120 ml IV ONCE ONE Stop: 03/01/24 11:02 Last Admin: 03/01/24 11:02 Dose: 120 ml Documented By: JUAN F Critical Care Time Critical Care Time: Yes Total Critical Care Time: 71 I have personally spent greater than 71 minutes of critical care time in the direct management of this patient. This includes bedside care, interpretation of diagnostic studies, and testing, discussion with consultants, patient, and family members, and other required patient management activities. This 71 minutes is in excess of all separately billable procedures. Medical Decision Making Laboratory Data Attestation: I reviewed the patient's lab results. 03/01/24 10:33 03/01/24 10:33 Lab Results 03/01/24 03/01/24 03/01/24 Range/Units 10:33 10:35 10:37 WBC 9.67 (4.8-10.8) K/ul RBC 4.72 (4.20-5.40) M/uL Hgb 13.8 (12.0-16.0) g/dl POC Hgb 14.6 (12.0-16.0) g/dl Hct 44.0 (37.0-47.0) % POC Hct 43 (37-47) % MCV 93.2 (80.0-100.0) fL MCH 29.2 (25.0-34.0) pg MCHC 31.4 L (32.0-36.0) g/dL RDW Std Deviation 45.1 (36.4-46.3) fL RDW Coeff of Vicky 13.2 (11.5-14.5) % Plt Count 306 (130-400) K/uL MPV 9.8 (9.4-12.4) fL Immature Gran % (Auto) 0.7 % Neut % (Auto) 88.0 % Lymph % (Auto) 3.9 % [place] % (Auto) 7.2 % Eos % (Auto) 0.0 % Baso % (Auto) 0.2 % Neut # (Auto) 8.50 H (1.40-6.50) K/uL Lymph # (Auto) 0.38 L (1.20-3.40) K/uL [place] # (Auto) 0.70 H (0.11-0.59) K/uL Eos # (Auto) 0.00 (0.00-0.50) K/uL Baso # (Auto) 0.02 (0.00-0.20) K/uL Immature Gran # (Auto) 0.07 (0.01-0.20) K/uL PT 11.1 (9.0-12.0) Seconds INR 1.0 (0.9-1.1) APTT 27 (21-31) Seconds PTT Ratio 1.0 VBG pH (7.36-7.41) VBG pCO2 (38-50) mmHg VBG pO2 mmHg VBG HCO3 mmol/L VBG O2 Saturation % VBG Base Excess mEq/L POC Sodium 137 (135-144) mmol/L Sodium 137 (136-145) mmol/L POC Potassium 4.6 (3.3-5.0) mmol/L Potassium 4.7 (3.5-5.1) mmol/L POC Chloride 101 (101-112) mmol/L Chloride 100 (98-107) mmol/L Carbon Dioxide 28 (21-32) mmol/L POC Total CO2 26 (24-31) mmol/L Anion Gap 9 (3-11) POC Anion Gap 15.0 L (16-25) mmol/L POC BUN 23 H (7-18) mg/dl BUN 23 (6-23) mg/dl Creatinine 1.57 H (0.6-1.2) mg/dl POC Creatinine 1.7 H (0.6-1.3) mg/dl Est Cr Clr Drug Dosing Not Reportable Est GFR ( Amer) 38.0 ml/min Est GFR (Non-Af Amer) 32.8 ml/min BUN/Creatinine Ratio 14.6 (10-20) Glucose 157 H (70-99(Fasting)) mg/dl POC Glucose (other) 160 H (70-99) mg/dl Lactate (0.4-2.0) mmol/L Calcium 8.6 (8.6-10.3) mg/dl POC Ioniz Calcium Nam 1.08 L (1.12-1.32) mmol/l Magnesium 2.0 (1.7-2.4) mg/dl Total Bilirubin 0.4 (0.2-1.0) mg/dl AST 194 H (13-39) U/L ALT 193 H (7-52) U/L Alkaline Phosphatase 107 H (34-104) U/L Troponin I High Sens 351.0 H* (0-14) pg/ml B-Natriuretic Peptide 965 H (0-100) pg/ml Total Protein 7.4 (6.0-8.3) gm/dl Albumin 4.1 (3.4-5.0) gm/dl Globulin 3.3 (2.5-4.0) gm/dl Albumin/Globulin Ratio 1.2 (0.9-2) Procalcitonin (0-0.5) ng/ml Urine Color Urine Appearance (Clear) Urine pH (4.5-7.5) Ur Specific [place] (1.000-1.030) Urine Protein (Negative) Urine Glucose (UA) (Negative) Urine Ketones (Negative) Urine Blood (Negative) Urine Nitrite (Negative) Urine Bilirubin (Negative) Urine Urobilinogen (Negative) Ur Leukocyte Esterase (Negative) Urine WBC (Auto) (0-5) /hpf Urine RBC (Auto) (0-2) /hpf U Hyaline Cast (Auto) (0-2) /lpf U Epithel Cells (Auto) (0-2) /hpf Urine Bacteria (Auto) (None Seen) Hyaline Casts (None Presnt) /lpf Granular Casts (None Prsent) /lpf Urine Mucus (None Prsent) SARS-CoV-2 (PCR) POSITIVE A (Negative) Influenza Type A (PCR) Negative (Neg) Influenza Type B (PCR) Negative (Neg) RSV (RT-PCR) Negative (Neg) Blood Type A Positive Antibody Screen NEGATIVE 03/01/24 03/01/24 Range/Units 11:45 12:48 WBC (4.8-10.8) K/ul RBC (4.20-5.40) M/uL Hgb (12.0-16.0) g/dl POC Hgb (12.0-16.0) g/dl Hct (37.0-47.0) % POC Hct (37-47) % MCV (80.0-100.0) fL MCH (25.0-34.0) pg MCHC (32.0-36.0) g/dL RDW Std Deviation (36.4-46.3) fL RDW Coeff of Vicky (11.5-14.5) % Plt Count (130-400) K/uL MPV (9.4-12.4) fL Immature Gran % (Auto) % Neut % (Auto) % Lymph % (Auto) % [place] % (Auto) % Eos % (Auto) % Baso % (Auto) % Neut # (Auto) (1.40-6.50) K/uL Lymph # (Auto) (1.20-3.40) K/uL [place] # (Auto) (0.11-0.59) K/uL Eos # (Auto) (0.00-0.50) K/uL Baso # (Auto) (0.00-0.20) K/uL Immature Gran # (Auto) (0.01-0.20) K/uL PT (9.0-12.0) Seconds INR (0.9-1.1) APTT (21-31) Seconds PTT Ratio VBG pH 7.30 L (7.36-7.41) VBG pCO2 59 H (38-50) mmHg VBG pO2 32 mmHg VBG HCO3 29 mmol/L VBG O2 Saturation < 60.0 % VBG Base Excess 1.1 mEq/L POC Sodium (135-144) mmol/L Sodium (136-145) mmol/L POC Potassium (3.3-5.0) mmol/L Potassium (3.5-5.1) mmol/L POC Chloride (101-112) mmol/L Chloride (98-107) mmol/L Carbon Dioxide (21-32) mmol/L POC Total CO2 (24-31) mmol/L Anion Gap (3-11) POC Anion Gap (16-25) mmol/L POC BUN (7-18) mg/dl BUN (6-23) mg/dl Creatinine (0.6-1.2) mg/dl POC Creatinine (0.6-1.3) mg/dl Est Cr Clr Drug Dosing Est GFR ( Amer) ml/min Est GFR (Non-Af Amer) ml/min BUN/Creatinine Ratio (10-20) Glucose (70-99(Fasting)) mg/dl POC Glucose (other) (70-99) mg/dl Lactate 1.9 (0.4-2.0) mmol/L Calcium (8.6-10.3) mg/dl POC Ioniz Calcium Nam (1.12-1.32) mmol/l Magnesium (1.7-2.4) mg/dl Total Bilirubin (0.2-1.0) mg/dl AST (13-39) U/L ALT (7-52) U/L Alkaline Phosphatase (34-104) U/L Troponin I High Sens 480.6 H* D (0-14) pg/ml B-Natriuretic Peptide (0-100) pg/ml Total Protein (6.0-8.3) gm/dl Albumin (3.4-5.0) gm/dl Globulin (2.5-4.0) gm/dl Albumin/Globulin Ratio (0.9-2) Procalcitonin 0.31 (0-0.5) ng/ml Urine Color Yellow Urine Appearance Cloudy A (Clear) Urine pH 5.5 (4.5-7.5) Ur Specific [place] > 1.045 H (1.000-1.030) Urine Protein 1+ H (Negative) Urine Glucose (UA) Negative (Negative) Urine Ketones Negative (Negative) Urine Blood Negative (Negative) Urine Nitrite Negative (Negative) Urine Bilirubin Negative (Negative) Urine Urobilinogen Negative (Negative) Ur Leukocyte Esterase Negative (Negative) Urine WBC (Auto) 0-5 (0-5) /hpf Urine RBC (Auto) 0-2 (0-2) /hpf U Hyaline Cast (Auto) >20 H (0-2) /lpf U Epithel Cells (Auto) 3-5 H (0-2) /hpf Urine Bacteria (Auto) 1+ H (None Seen) Hyaline Casts Present A (None Presnt) /lpf Granular Casts Present A (None Prsent) /lpf Urine Mucus Present A (None Prsent) SARS-CoV-2 (PCR) (Negative) Influenza Type A (PCR) (Neg) Influenza Type B (PCR) (Neg) RSV (RT-PCR) (Neg) Blood Type Antibody Screen Imaging Data Attestation: I personally reviewed and interpreted this imaging study as follows: My Impression: CT head: No ICH Chest x-ray: Cardiomegaly with cephalization. Radiologist's Impression: Chest X-Ray 03/01/24 10:25 XR chest 1V portable CLINICAL HISTORY: neuro deficit, acute stroke suspected COMPARISON STUDY: Chest radiograph February 18, 2023. FINDINGS: A density projecting over the heart on this study is likely on the patient. Lung volumes are mildly diminished. There is no pneumothorax or pleural effusion. Cardiomegaly is noted. There is mild interstitial thickening. There is no lobar consolidation. Minimal left basilar opacity is present. IMPRESSION: 1. Cardiomegaly. Pulmonary vascular congestion with possible mild pulmonary edema. 2. Left basilar opacities which favor atelectasis. 3. Hypoventilatory study. ACT 112: Negative or not required by law. Electronically signed by: Mohit Lewis M.D. 03/01/2024 10:[address] 03/01/24 10:25 CT OF THE HEAD WITHOUT CONTRAST CLINICAL HISTORY: neuro deficit, acute stroke suspected COMPARISON STUDY: Head CT and MRI of the brain February 18, 2023. TECHNIQUE: Helical axial images of the head were obtained without IV contrast. Automated exposure control was utilized for the study. A dose lowering technique was utilized adhering to the principles of ALARA. FINDINGS: No acute intracranial hemorrhage, midline shift or mass effect is present. The ventricular system is unremarkable. The basal cisterns are patent. No extra-axial collections are present. There are no findings to suggest acute dural sinus thrombosis or acute territorial infarct. No significant calvarial abnormalities are present. IMPRESSION: No acute intracranial findings. ACT 112: Negative or not required by law. Electronically signed by: Mohit Lewis M.D. 03/01/2024 11:08 AM Head CTA 03/01/24 10:25 CTA ANGIOGRAPHY OF THE HEAD CLINICAL HISTORY: neuro deficit, acute stroke suspected COMPARISON STUDY: CTA of the head February 18, 2023. TECHNIQUE: Helical axial images of the head were obtained following uneventful intravenous administration of 120 cc of Optiray. Sagittal and coronal reconstructions were viewed as well as maximal intensity projections on an independent 3-D workstation. Automated exposure control was utilized for the study. A dose lowering technique was utilized adhering to the principles of ALARA. FINDINGS: This exam is significantly compromised by motion artifact. No acute intracranial hemorrhage was identified on the head CT which will be reported separately. The ventricular system is normal. The basal cisterns are patent. There are no extra-axial collections. The bilateral M1 and M2 segments are grossly patent. As before, both anterior cerebral arteries arise from the left internal carotid artery. Posterior circulation is grossly intact. There is no intracranial aneurysm. No large vessel occlusion. There is persistence of the right posterior cerebral artery. IMPRESSION: Exam significantly compromised by motion artifact. No large vessel occlusion. ACT 112: Negative or not required by law. Electronically signed by: Mohit Lewis M.D. 03/01/2024 11:20 AM Neck CTA 03/01/24 10:25 CT ANGIOGRAPHY OF THE NECK WITH CONTRAST CLINICAL HISTORY: neuro deficit, acute stroke suspected COMPARISON STUDY: CTA of the neck February 18, 2023. Technique: CT angiography of the carotid and vertebral arteries was obtained using Optiray and 3D reconstruction on an independent workstation. NASCET criteria was utilized. Automated exposure control was utilized for the study. A dose lowering technique was utilized adhering to the principles of ALARA. CT DOSE: 1715.78 mGy.cm Findings: This exam is significantly compromised by motion artifact. No cervical spine fractures are identified. There are no fluid collections within neck. Prominent bilateral level 4 cervical lymph nodes are unchanged. These are likely benign. Major vessels within the neck are suboptimally assessed on this exam due to motion artifact but are patent. No definite stenoses are identified. There is mild plaque within the proximal right internal carotid artery without stenosis. There is no definite dissection. There is no intracranial aneurysm. IMPRESSION: Exam significantly compromised by motion artifact. Major vessels within neck grossly patent. No definite stenoses identified. ACT 112: Negative or not required by law. Electronically signed by: Mohit Lewis M.D. 03/01/2024 11:17 AM ECG Data Attestation: I personally reviewed and interpreted this ECG as follows: Rate (beats per minute): 87 Rhythm: + normal sinus ECG Intervals/blocks: + Normal QRS, + Normal IA and + Normal QT-c ECG ST segments: + Normal ST segments MDM Narrative 1025: The patient was evaluated in room B1. A complete history and physical exam was performed Cardiac monitoring: An order was placed for continuous cardiac monitoring. The monitor shows a rate of 80 with sinus rhythm interpreted by me Patient hypoxic on arrival. Quickly transitioned to high flow nasal cannula. No code stroke was called as patient's last known normal was last night and the patient awoke with symptoms. Patient is hypoxic and with a recent COVID diagnosis patient was treated with Decadron 6 mg IV push. Patient be taken to CT for stroke workup. 1043: CT of the head viewed by me shows no ICH. 1150: Vital signs stable on high flow oxygen. On reassessment the patient is more alert and is now able to communicate on high flow oxygen. CT head, CTA angio head and neck negative. Patient's symptoms could be due to her profound hypoxia. Chest x-ray shows cardiomegaly with cephalization. Patient treated with Lasix 40 mg IV push also. [facility] Discussed case with Dr. Waters who stated she will evaluate the patient for admission. Impression & Plan Hypoxia, Stroke-like symptoms, COVID-19, Fluid overload Discharge Plan Visit Data Chief Complaint: Stroke/CVA Symptoms ED Provider: Jere Govea Discharge Problem: Hypoxia, Stroke-like symptoms, COVID-19, Fluid overload Patient Disposition: Admitted As Inpatient Forms Stand Alone Forms: [facility] Prescriptions Prescriptions: No Action omeprazole 20 mg capsule,delayed release(DR/EC) 20 mg PO QAM simvastatin 10 mg tablet 10 mg PO HS aspirin 81 mg Tablet,Delayed Release (Dr/Ec) 81 mg PO QAM Qty: 30 0RF Rx Instructions: Unable to verify OTC meds at this date/time. amlodipine [Norvasc] 10 mg Tablet 10 mg PO QAM cholecalciferol (vitamin D3) 1,250 mcg (50,000 unit) capsule 1,250 mcg PO WK Referrals Referrals: Wendy Clay DO [Primary Care Provider] - Discharge Problem: Fluid overload Qualifiers: Hypervolemia type: unspecified Qualified Code(s): E87.70 - Fluid overload, unspecified
--- NOTE | 2024-03-01 14:09 | CT Scan Report ---
CT OF THE CHEST WITHOUT IV CONTRAST CLINICAL HISTORY: Hypoxic respiratory failure. COMPARISON STUDY: Chest radiographs February 18, 2023 and March 01, 2024. CT DOSE: 753.8 mGy.cm TECHNIQUE: Axial images of the chest were obtained without IV contrast. Images were reviewed in the axial, sagittal, and coronal planes. IV contrast was not administered for this examination. Automat ed exposure control was utilized for the study. A dose lowering technique was utilized adhering to t he principles of ALARA. FINDINGS: No enlarged axillary, mediastinal or hilar lymph nodes are present. Heart is moderately en larged. The central pulmonary arteries are dilated. The main pulmonary artery measures 3.5 cm in [place]. There is no pneumothorax. No significant pleural effusion. Subpleural opacities represent atelec tasis. There is no consolidation to suggest pneumonia. There is a tiny 4 mm groundglass right upper l obe nodule which is likely benign. The central airways are patent. No acute fractures within the bony thorax are noted. Visualized portions of the upper abdomen are unremarkable. IMPRESSION: 1. No consolidation to suggest pneumonia. Subpleural opacities within lungs consistent with atelectas is. 3. Moderate cardiomegaly. Dilatation of the central pulmonary arteries which raises the possibility o f pulmonary arterial hypertension. ACT 112: Negative or not required by law. Electronically signed by: Mohit Lewis M.D. 03/01/2024 2:07 PM
[2024-03-01] MEDS: HEPARIN SOD 5,000 UNIT/0.5 ML VIAL SQ SCH (15:48)
[2024-03-01] MEDS: CALCIUM GLUCONATE 1,000 MG/60 ML BAG IV SCH (15:48)
[2024-03-01] MEDS: GADOBUTROL 10ML VIAL IV ONE (16:58)
--- NOTE | 2024-03-01 17:25 | Cardiology Consultation ---
Date of Consultation March 01, 2024 Assessment & Plan (1) Acute respiratory failure with hypoxia and hypercapnia: (2) Stroke-like symptoms: (3) Elevated troponin: Plan Assessment and plan COVID-19 infection Acute respiratory failure Altered mental status which is now resolved Acute pulmonary edema improving Elevated troponins Elevated troponins : In setting of COVID-19 infection associated with pulmonary edema and respiratory failure Continue to trend troponins Evidence of acute ischemic changes on EKG patient does not have anginal symptoms. Echocardiogram shows borderline reduced LV ejection fraction abnormal septal motion and RV dilatation with mildly reduced function Consider evaluation for pulmonary embolism Received 1 dose of IV Lasix 40 reasses in am and lasix as needed History of Present Illness Reason for Consultation: Elevated troponins Requesting Physician: Hospitalist Attending Physician: Gabbie Waters MD History of Present Illness 73-year-old female with known history of hypertension dyslipidemia Jorgen syndrome presented to the emergency room with altered mental status. Was brought to the emergency room by daughter who found her unresponsive and staring into the space in the morning. Patient was evaluated for stroke CT was negative Chest x-ray showed pulmonary vascular congestion. Also noted to have elevated troponins and BNP. CT chest shows dilatation of the central pulmonary arteries suggestive of pulmonary arterial hypertension. At the time of my evaluation patient was alert and oriented able to answer questions. Reports she has been sick for the past 1 week, had cough and runny nose so it intermittent urgent care yesterday noted to be COVID-positive, Reports shortness of breath denies chest pain no lightheadedness or dizziness Patient is able to do her daily activities at baseline. [facility] [employer] [facility]. Allergies Allergy/AdvReac Type Severity Reaction Status Date / Time doxycycline Allergy Unknown Unknown - Unverified 03/01/24 11:47 On file w/ [facility] lisinopril AdvReac Unknown Cough Verified 03/01/24 11:47 Home Medications Medication Instructions Recorded Confirmed Type omeprazole 20 mg capsule,delayed 20 mg PO QAM 02/18/23 03/01/24 History release simvastatin 10 mg tablet 10 mg PO HS 02/18/23 03/01/24 History aspirin 81 mg tablet,delayed 81 mg PO QAM #30 tabs 02/19/23 03/01/24 Rx release amlodipine 10 mg tablet (Norvasc) 10 mg PO QAM 05/06/23 03/01/24 History cholecalciferol (vitamin D3) 1,250 1,250 mcg PO WK 03/01/24 03/01/24 History mcg (50,000 unit) capsule Patient History Medical History History of COVID-19 06/2021 no hosp; resolved Anxiety Gout HX Surgical History Hx of cataract extraction Hx of colonoscopy Hx of arthroscopy of left knee S/P tonsillectomy and adenoidectomy History of cholecystectomy S/P right knee arthroscopy Family History Other Alzheimer disease Breast cancer Diabetes Heart disease Social History Smoking Status: Never smoker Second Hand Exposure: No; Do You Dip or Chew Tobacco: No; Hx Alcohol Use: No Hx Substance Use: No Preferred Language: [place] Communication Ability: Effective Gum Machine Operator Required: No Beliefs That Will Affect Care: None Current Living Situation: Spouse Feels Safe at Home: Yes Safety Concerns: Feels Safe At This Time Assistive Devices: None Review of Systems Constitutional: + body aches, + fatigue and + weakness Respiratory: + cough, + chest congestion, + dyspnea a nd + dyspnea on exertion Cardiovascular: + dyspnea on exertion; no chest pain, no chest pain at rest, no paroxysmal nocturnal dyspnea, no palpitations, no lightheadedness, no syncope and no edema Gastrointestinal: + early satiety Neurologic: + generalized weakness Psychiatric: no anxiety Physical Exam Constitutional: well developed; no acute distress Eyes: + no PERRL Neck: trachea midline, no thyromegaly Respiratory: Auscultation: + crackles Cardiovascular: Rate/Rhythm: regular rate and regular rhythm Heart Sounds: normal S1 and normal S2; no gallop, no murmur and no cardiac rub Vessels: no JVD Extremities: no edema Gastrointestinal (Abdomen): Percussion/Palpation: abdomen soft Results & Data Vital Signs (Past 12 Hours) Vital Signs Temp Pulse Pulse Resp BP BP Pulse Ox 03/01/24 16:09 80 22 128/55 L 94 03/01/24 13:03 81 22 109/75 95 03/01/24 12:16 83 19 96 03/01/24 12:15 95 03/01/24 11:37 85 24 131/83 96 03/01/24 11:18 82 26 H 123/70 95 03/01/24 11:04 95 H 03/01/24 11:00 88 24 92 03/01/24 10:59 03/01/24 10:59 36.6 C 86 18 125/76 97 O2 Del Method O2 Flow Rate FiO2 03/01/24 16:09 Oxymask 10 03/01/24 13:03 Oxymask 10 03/01/24 12:16 Oxymask 10 03/01/24 12:15 Oxymask 8 03/01/24 11:37 High Flow Nasal Cannula 40 03/01/24 11:18 High Flow Nasal Cannula 40 03/01/24 11:04 03/01/24 11:00 High Flow Nasal Cannula 40 80 03/01/24 10:59 High Flow Nasal Cannula 03/01/24 10:59 High Flow Nasal Cannula 40 85 Laboratory Results Cardiac Enzymes 03/01/24 03/01/24 03/01/24 Range/Units 10:33 10:35 12:48 AST 194 H (13-39) U/L Troponin I High Sens 351.0 H* 480.6 H* D (0-14) pg/ml B-Natriuretic Peptide 965 H (0-100) pg/ml Coagulation 03/01/24 03/01/24 Range/Units 10:33 10:35 PT 11.1 (9.0-12.0) Seconds APTT 27 (21-31) Seconds B-Natriuretic Peptide 965 H (0-100) pg/ml CBC 03/01/24 Range/Units 10:33 WBC 9.67 (4.8-10.8) K/ul RBC 4.72 (4.20-5.40) M/uL Hgb 13.8 (12.0-16.0) g/dl Hct 44.0 (37.0-47.0) % Plt Count 306 (130-400) K/uL Neut # (Auto) 8.50 H (1.40-6.50) K/uL Lymph # (Auto) 0.38 L (1.20-3.40) K/uL [place] # (Auto) 0.70 H (0.11-0.59) K/uL Eos # (Auto) 0.00 (0.00-0.50) K/uL Baso # (Auto) 0.02 (0.00-0.20) K/uL Comprehensive Metabolic Panel 03/01/24 Range/Units 10:33 Sodium 137 (136-145) mmol/L Potassium 4.7 (3.5-5.1) mmol/L Chloride 100 (98-107) mmol/L Carbon Dioxide 28 (21-32) mmol/L BUN 23 (6-23) mg/dl Creatinine 1.57 H (0.6-1.2) mg/dl Glucose 157 H (70-99(Fasting)) mg/dl Calcium 8.6 (8.6-10.3) mg/dl AST 194 H (13-39) U/L ALT 193 H (7-52) U/L Alkaline Phosphatase 107 H (34-104) U/L Total Protein 7.4 (6.0-8.3) gm/dl Albumin 4.1 (3.4-5.0) gm/dl Intake and Output 03/01/24 03/01/24 03/01/24 06:59 14:59 22:59 Intake Total 60 / 60 Balance 60 / 60 Intake: IV 60 / 60 Calcium Gluconate 1,000 mg In 60 / 60 60 ml @ 240 mls/hr IV Q15M COUNT INCLUDES THE [facility] Rx#:[id number] Other: Weight 96.2 kg 96.2 kg Weight Measurement Method Built in [facility] Patient Weight 03/02/24 06:59 Weight 96.2 kg Diagnostic Findings Laboratory Results WBC 9.67 K/ul (4.8-10.8) 03/01/24 10:33 RBC 4.72 M/uL (4.20-5.40) 03/01/24 10:33 Hgb 13.8 g/dl (12.0-16.0) 03/01/24 10:33 POC Hgb 14.6 g/dl (12.0-16.0) 03/01/24 10:37 Hct 44.0 % (37.0-47.0) 03/01/24 10:33 POC Hct 43 % (37-47) 03/01/24 10:37 MCV 93.2 fL (80.0-100.0) 03/01/24 10:33 MCH 29.2 pg (25.0-34.0) 03/01/24 10:33 MCHC 31.4 g/dL (32.0-36.0) L 03/01/24 10:33 RDW Std Deviation 45.1 fL (36.4-46.3) 03/01/24 10:33 RDW Coeff of Vicky 13.2 % (11.5-14.5) 03/01/24 10:33 Plt Count 306 K/uL (130-400) 03/01/24 10:33 MPV 9.8 fL (9.4-12.4) 03/01/24 10:33 Immature Gran % (Auto) 0.7 % 03/01/24 10:33 Neut % (Auto) 88.0 % 03/01/24 10:33 Lymph % (Auto) 3.9 % 03/01/24 10:33 [place] % (Auto) 7.2 % 03/01/24 10:33 Eos % (Auto) 0.0 % 03/01/24 10:33 Baso % (Auto) 0.2 % 03/01/24 10:33 Neut # (Auto) 8.50 K/uL (1.40-6.50) H 03/01/24 10:33 Lymph # (Auto) 0.38 K/uL (1.20-3.40) L 03/01/24 10:33 [place] # (Auto) 0.70 K/uL (0.11-0.59) H 03/01/24 10:33 Eos # (Auto) 0.00 K/uL (0.00-0.50) 03/01/24 10:33 Baso # (Auto) 0.02 K/uL (0.00-0.20) 03/01/24 10:33 Immature Gran # (Auto) 0.07 K/uL (0.01-0.20) 03/01/24 10:33 PT 11.1 Seconds (9.0-12.0) 03/01/24 10:33 INR 1.0 (0.9-1.1) 03/01/24 10:33 APTT 27 Seconds (21-31) 03/01/24 10:33 PTT Ratio 1.0 03/01/24 10:33 VBG pH 7.30 (7.36-7.41) L 03/01/24 12:48 VBG pCO2 59 mmHg (38-50) H 03/01/24 12:48 VBG pO2 32 mmHg 03/01/24 12:48 VBG HCO3 29 mmol/L 03/01/24 12:48 VBG O2 Saturation < 60.0 % 03/01/24 12:48 VBG Base Excess 1.1 mEq/L 03/01/24 12:48 POC Sodium 137 mmol/L (135-144) 03/01/24 10:37 Sodium 137 mmol/L (136-145) 03/01/24 10:33 POC Potassium 4.6 mmol/L (3.3-5.0) 03/01/24 10:37 Potassium 4.7 mmol/L (3.5-5.1) 03/01/24 10:33 POC Chloride 101 mmol/L (101-112) 03/01/24 10:37 Chloride 100 mmol/L (98-107) 03/01/24 10:33 Carbon Dioxide 28 mmol/L (21-32) 03/01/24 10:33 POC Total CO2 26 mmol/L (24-31) 03/01/24 10:37 Anion Gap 9 (3-11) 03/01/24 10:33 POC Anion Gap 15.0 mmol/L (16-25) L 03/01/24 10:37 POC BUN 23 mg/dl (7-18) H 03/01/24 10:37 BUN 23 mg/dl (6-23) 03/01/24 10:33 Creatinine 1.57 mg/dl (0.6-1.2) H 03/01/24 10:33 POC Creatinine 1.7 mg/dl (0.6-1.3) H 03/01/24 10:37 Est Cr Clr Drug Dosing Not Reportable 03/01/24 10:33 Est GFR ( Amer) 38.0 ml/min 03/01/24 10:33 Est GFR (Non-Af Amer) 32.8 ml/min 03/01/24 10:33 BUN/Creatinine Ratio 14.6 (10-20) 03/01/24 10:33 Glucose 157 mg/dl (70-99(Fasting)) H 03/01/24 10:33 POC Glucose (other) 160 mg/dl (70-99) H 03/01/24 10:37 Lactate 1.9 mmol/L (0.4-2.0) 03/01/24 12:48 Calcium 8.6 mg/dl (8.6-10.3) 03/01/24 10:33 POC Ioniz Calcium Nam 1.08 mmol/l (1.12-1.32) L 03/01/24 10:37 Magnesium 2.0 mg/dl (1.7-2.4) 03/01/24 10:33 Total Bilirubin 0.4 mg/dl (0.2-1.0) 03/01/24 10:33 AST 194 U/L (13-39) H 03/01/24 10:33 ALT 193 U/L (7-52) H 03/01/24 10:33 Alkaline Phosphatase 107 U/L (34-104) H 03/01/24 10:33 Troponin I High Sens 480.6 pg/ml (0-14) H* D 03/01/24 12:48 B-Natriuretic Peptide 965 pg/ml (0-100) H 03/01/24 10:35 Total Protein 7.4 gm/dl (6.0-8.3) 03/01/24 10:33 Albumin 4.1 gm/dl (3.4-5.0) 03/01/24 10:33 Globulin 3.3 gm/dl (2.5-4.0) 03/01/24 10:33 Albumin/Globulin Ratio 1.2 (0.9-2) 03/01/24 10:33 Procalcitonin 0.31 ng/ml (0-0.5) 03/01/24 12:48 Urine Color Yellow 03/01/24 11:45 Urine Appearance Cloudy (Clear) A 03/01/24 11:45 Urine pH 5.5 (4.5-7.5) 03/01/24 11:45 Ur Specific [place] > 1.045 (1.000-1.030) H 03/01/24 11:45 Urine Protein 1+ (Negative) H 03/01/24 11:45 Urine Glucose (UA) Negative (Negative) 03/01/24 11:45 Urine Ketones Negative (Negative) 03/01/24 11:45 Urine Blood Negative (Negative) 03/01/24 11:45 Urine Nitrite Negative (Negative) 03/01/24 11:45 Urine Bilirubin Negative (Negative) 03/01/24 11:45 Urine Urobilinogen Negative (Negative) 03/01/24 11:45 Ur Leukocyte Esterase Negative (Negative) 03/01/24 11:45 Urine WBC (Auto) 0-5 /hpf (0-5) 03/01/24 11:45 Urine RBC (Auto) 0-2 /hpf (0-2) 03/01/24 11:45 U Hyaline Cast (Auto) >20 /lpf (0-2) H 03/01/24 11:45 U Epithel Cells (Auto) 3-5 /hpf (0-2) H 03/01/24 11:45 Urine Bacteria (Auto) 1+ (None Seen) H 03/01/24 11:45 Hyaline Casts Present /lpf (None Presnt) A 03/01/24 11:45 Granular Casts Present /lpf (None Prsent) A 03/01/24 11:45 Urine Mucus Present (None Prsent) A 03/01/24 11:45 SARS-CoV-2 (PCR) POSITIVE (Negative) A 03/01/24 10:35 Influenza Type A (PCR) Negative (Neg) 03/01/24 10:35 Influenza Type B (PCR) Negative (Neg) 03/01/24 10:35 RSV (RT-PCR) Negative (Neg) 03/01/24 10:35 Blood Type A Positive 03/01/24 10:33 Antibody Screen NEGATIVE 03/01/24 10:33 Impressions Chest X-Ray 03/01/24 10:25 XR chest 1V portable CLINICAL HISTORY: neuro deficit, acute stroke suspected COMPARISON STUDY: Chest radiograph February 18, 2023. FINDINGS: A density projecting over the heart on this study is likely on the patient. Lung volumes are mildly diminished. There is no pneumothorax or pleural effusion. Cardiomegaly is noted. There is mild interstitial thickening. There is no lobar consolidation. Minimal left basilar opacity is present. IMPRESSION: 1. Cardiomegaly. Pulmonary vascular congestion with possible mild pulmonary edema. 2. Left basilar opacities which favor atelectasis. 3. Hypoventilatory study. ACT 112: Negative or not required by law. Electronically signed by: Mohit Lewis M.D. 03/01/2024 10:[address] 03/01/24 10:25 CT OF THE HEAD WITHOUT CONTRAST CLINICAL HISTORY: neuro deficit, acute stroke suspected COMPARISON STUDY: Head CT and MRI of the brain February 18, 2023. TECHNIQUE: Helical axial images of the head were obtained without IV contrast. Automated exposure control was utilized for the study. A dose lowering technique was utilized adhering to the principles of ALARA. FINDINGS: No acute intracranial hemorrhage, midline shift or mass effect is present. The ventricular system is unremarkable. The basal cisterns are patent. No extra-axial collections are present. There are no findings to suggest acute dural sinus thrombosis or acute territorial infarct. No significant calvarial abnormalities are present. IMPRESSION: No acute intracranial findings. ACT 112: Negative or not required by law. Electronically signed by: Mohit Lewis M.D. 03/01/2024 11:08 AM Head CTA 03/01/24 10:25 CTA ANGIOGRAPHY OF THE HEAD CLINICAL HISTORY: neuro deficit, acute stroke suspected COMPARISON STUDY: CTA of the head February 18, 2023. TECHNIQUE: Helical axial images of the head were obtained following uneventful intravenous administration of 120 cc of Optiray. Sagittal and coronal reconstructions were viewed as well as maximal intensity projections on an independent 3-D workstation. Automated exposure control was utilized for the study. A dose lowering technique was utilized adhering to the principles of ALARA. FINDINGS: This exam is significantly compromised by motion artifact. No acute intracranial hemorrhage was identified on the head CT which will be reported separately. The ventricular system is normal. The basal cisterns are patent. There are no extra-axial collections. The bilateral M1 and M2 segments are grossly patent. As before, both anterior cerebral arteries arise from the left internal carotid artery. Posterior circulation is grossly intact. There is no intracranial aneurysm. No large vessel occlusion. There is persistence of the right posterior cerebral artery. IMPRESSION: Exam significantly compromised by motion artifact. No large vessel occlusion. ACT 112: Negative or not required by law. Electronically signed by: Mohit Lewis M.D. 03/01/2024 11:20 AM Neck CTA 03/01/24 10:25 CT ANGIOGRAPHY OF THE NECK WITH CONTRAST CLINICAL HISTORY: neuro deficit, acute stroke suspected COMPARISON STUDY: CTA of the neck February 18, 2023. Technique: CT angiography of the carotid and vertebral arteries was obtained using Optiray and 3D reconstruction on an independent workstation. NASCET criteria was utilized. Automated exposure control was utilized for the study. A dose lowering technique was utilized adhering to the principles of ALARA. CT DOSE: 1715.78 mGy.cm Findings: This exam is significantly compromised by motion artifact. No cervical spine fractures are identified. There are no fluid collections within neck. Prominent bilateral level 4 cervical lymph nodes are unchanged. These are likely benign. Major vessels within the neck are suboptimally assessed on this exam due to motion artifact but are patent. No definite stenoses are identified. There is mild plaque within the proximal right internal carotid artery without stenosis. There is no definite dissection. There is no intracranial aneurysm. IMPRESSION: Exam significantly compromised by motion artifact. Major vessels within neck grossly patent. No definite stenoses identified. ACT 112: Negative or not required by law. Electronically signed by: Mohit Lewis M.D. 03/01/2024 11:[address] 03/01/24 12:39 CT OF THE CHEST WITHOUT IV CONTRAST CLINICAL HISTORY: Hypoxic respiratory failure. COMPARISON STUDY: Chest radiographs February 18, 2023 and March 01, 2024. CT DOSE: 753.8 mGy.cm TECHNIQUE: Axial images of the chest were obtained without IV contrast. Images were reviewed in the axial, sagittal, and coronal planes. IV contrast was not administered for this examination. Automated exposure control was utilized for the study. A dose lowering technique was utilized adhering to the principles of ALARA. FINDINGS: No enlarged axillary, mediastinal or hilar lymph nodes are present. Heart is moderately enlarged. The central pulmonary arteries are dilated. The main pulmonary artery measures 3.5 cm in caliber. There is no pneumothorax. No significant pleural effusion. Subpleural opacities represent atelectasis. There is no consolidation to suggest pneumonia. There is a tiny 4 mm groundglass right upper lobe nodule which is likely benign. The central airways are patent. No acute fractures within the bony thorax are noted. Visualized portions of the upper abdomen are unremarkable. IMPRESSION: 1. No consolidation to suggest pneumonia. Subpleural opacities within lungs consistent with atelectasis. 3. Moderate cardiomegaly. Dilatation of the central pulmonary arteries which raises the possibility of pulmonary arterial hypertension. ACT 112: Negative or not required by law. Electronically signed by: Mohit Lewis M.D. 03/01/2024 2:07 PM
[2024-03-01] MEDS: cefTRIAXone SODIUM 2,000 MG/50 ML BAG IV SCH (17:27)
--- NOTE | 2024-03-01 17:32 | Magnetic Resonance Report ---
MRI OF THE BRAIN WITHOUT AND WITH IV CONTRAST CLINICAL HISTORY: AMS, strokelike symptoms COMPARISON STUDY: MRI of the brain February 18, 2023. Head CT and CTA of the head performed earlier today. TECHNIQUE: Utilizing a 1.5 [place] magnet and dedicated coil, multiplanar, multiecho imaging of the br ain was performed pre and postcontrast administration. IV administration of 9 mL of Gadavist contras t was uneventful. FINDINGS: No acute intracranial hemorrhage, midline shift or mass effect is present. There is a small 4 mm focus of restricted diffusion within the right centrum semiovale on axial diffusion-weighted se quence image 17 of 25. This is hypointense on the ADC map. There are also small hyperintense foci wit hin the bilateral basal ganglia, measuring up to 7 mm. The 7 mm focus within the right basal ganglia is hypointense on the ADC map. The left basal ganglia foci are isointense. Corresponding mild T2 hype rintensity is noted. These foci may have been present on previous MRI. No additional foci of restrict ed diffusion are present. Ventricular system is normal. Basal cisterns are patent. There are no extra -axial collections. Flow-voids for the major intracranial vessels are present. No intracranial mass o r pathologic enhancement. IMPRESSION: 1. Foci of restricted diffusion within the bilateral basal ganglia, as described above, with mild ass ociated T2 hyperintensity. These favor subacute to acute infarcts, at least one of which may been pre sent on MRI of February 18, 2023, therefore subacute time course is favored. This distribution raise s the possibility of a metabolic/toxic etiology. 2. Punctate 4 mm acute infarct within the right centrum semiovale ovale. 3. No acute intracranial hemorrhage. No mass effect. 4. No intracranial mass or pathologic enhancement. ACT 112: Negative or not required by law. Electronically signed by: Mohit Lewis M.D. 03/01/2024 5:30 PM
[2024-03-01] MEDS: REMDESIVIR 200 MG in SODIUM CHLORIDE 0.9% 210 ML IV ONE (17:33)
[2024-03-01] MEDS: Heparin IV Adult Wt-Based Low-Dose *NO* INITIAL Bolus Protocol IV STA (18:27)
[2024-03-01] MEDS: HEPARIN SODIUM/DEXTROSE 25,000 UNITS/500 ML BAG IV SCH (18:28)
[2024-03-01] MEDS: SIMVASTATIN 10 MG TAB PO SCH (20:05)
[2024-03-02 02:57] LABS: Albumin Globulin Ratio 1.3 (0.9-2); BUN Creatinine Ratio 21.4 (10-20); Bilirubin,Total 0.3 mg/dl (0.2-1.0); Creatinine Clr Calc Pharmacy 47.7 ml/min; Est GFR (African American) 54.3 ml/min; Est GFR (Non-African American) 46.8 ml/min; Phosphorus 4.1 mg/dl (2.5-4.9); Potassium 3.7 mmol/L (3.5-5.1)
[2024-03-02 03:01] LABS: Basophils # (auto) 0.01 K/uL (0.00-0.20); Basophils % (auto) 0.1 %; Hematocrit (blood only) 39.2 % (37.0-47.0); Hemoglobin 13.1 g/dl (12.0-16.0); Immature Granulocytes # (auto) 0.07 K/uL (0.01-0.20); Immature Granulocytes % (auto) 0.5 %; Lymphocytes # (auto) 0.63 K/uL (1.20-3.40); Lymphocytes % (auto) 4.7 %; Mean Corpuscular Hemoglobin 29.8 pg (25.0-34.0); Mean Corpuscular Hgb Conc 33.4 g/dL (32.0-36.0); Mean Corpuscular Volume 89.3 fL (80.0-100.0); Mean Platelet Volume 10.4 fL (9.4-12.4); Monocytes # (auto) 1.02 K/uL (0.11-0.59); Monocytes % (auto) 7.6 %; Neutrophils # (auto) 11.68 K/uL (1.40-6.50); Neutrophils % (auto) 87.1 %; Platelet Count 286 K/uL (130-400); RDW Coefficient of Variation 12.8 % (11.5-14.5); RDW Standard Deviation 42.2 fL (36.4-46.3); Red Blood Count 4.39 M/uL (4.20-5.40); White Blood Count 13.41 K/ul (4.8-10.8)
--- NOTE | 2024-03-02 06:48 | Ultrasound Report ---
ABDOMINAL ULTRASOUND, RIGHT UPPER QUADRANT HISTORY: Acutely elevated LFTs Elevated LFTs. COMPARISON: None. FINDINGS: Limited study secondary to obscuring bowel gas. Pancreas: The pancreas demonstrates a normal echotexture. Liver: Increased echogenicity of the liver measuring up to 15.9 cm. No hepatic mass or marginal nodul arity of the liver. Gallbladder: Cholecystectomy. CBD: 9 mm, likely postsurgical Right kidney: No hydronephrosis. There is indeterminate ovoid hypoechoic structures in the mid inferi or pole left kidney measuring 1.4 x 0.8 x 0.8 cm which is present within the renal sinus. IMPRESSION: 1. Unremarkable exam status post cholecystectomy. 2. Suggestion of mild hepatic steatosis. 3. Indeterminate 1.4 cm hypoechoic focus in the mid to inferior pole left kidney renal sinus, possibl y a complex cyst. Three-month follow-up renal ultrasound recommended. ACT 112: Negative or not required by law. Electronically signed by: Karthikeyan Richardson M.D. 03/02/2024 6:46 AM
[2024-03-02] MEDS ORDERED: DEXAMETHASONE SOD INJ 4 MG/ML VIAL IV SCH (09:00)
--- NOTE | 2024-03-02 09:21 | Pulmonary Consultation ---
Date of Consultation March 02, 2024 Assessment & Plan (1) Hypoxia: Multifactorial in a 73-year-old female with COVID-19 infection with appreciated bibasilar atelectasis noted on CT scan. She was requiring 4 L nasal cannula. I was able to titrate this down while in the room with the patient to 1 L. V/Q s can pending at this time. Certainly, if there is additional concern for PE as source for hypoxia, would recommend proceeding with CT PE study as her creatinine has normalized at this point. She is appropriately anticoagulated. Regardless of PE or not, the patient has remained hemodynamically stable. She is titrating down off her supplemental oxygen at this time. Do not suspect significant clot burden at this point. Would also recommend that Dopplers of the lower extremities as well for the sake of completion of workup to assess for possible clot source. If VQ scan demonstrates no significant perfusion abnormalities concerning for PE, would recommend the patient out of bed to chair and start to mobilize. Additionally, would encourage incentive spirometry. Her chest films are not imp ressive at this point as far as infiltrative process is concerned. Would complete dexamethasone. Patient likely outside the treatment window for remdesivir with onset of symptoms early last week. (2) COVID: Conservative treatment as you are. Patient is well-appearing at this time. Plan Thank you for allowing us to participate in the care of this pleasant patient. History of Present Illness Reason for Consultation: acute hypoxic resp failure Requesting Physician: Dr. Waters Attending Physician: Frank Medel MD History of Present Illness Patient is a 73-year-old female with a significant past medical history of Sjogren's, GERD, hypertension, hyperlipidemia, allergies, and osteoarthritis who was admitted on 03/01 in the setting of altered mental status and COVID-19 infection. The patient reports that she was feeling poorly at the beginning of last week. She states that her symptoms progressed and she thought as though she was having a sinus infection. She has nasal congestion with associated cough. She was seen at a walk-in clinic on Saturday where she was provided an antibiotic to use in the event that her symptoms did not improve. She states that she had not started the antibiotic as she was awaiting the results of her COVID diagnosis. She reports that they must of called with a positive result while she was getting in the ambulance, because she has no recollection of events from early yesterday. She states that her daughter was unable to wake her yesterday which prompted need for EMS evaluation. She was found to be COVID-positive on arrival. She also underwent MRI of the brain for evaluation of strokelike findings. Her echocardiogram was concerning for possible PE. Unfortunately, creatinine was borderline at 1.57 so it was elected the patient undergo perfusion study. She has been requiring 4 L nasal cannula. Additionally, she was found to have a urinary tract infection for which she has been treated with antibiotics. The patient is on dexamethasone therapy in the setting of COVID infection with associated hypoxia. She received initial dose o f remdesivir. Upon evaluation in room 458-1, the patient is awake, alert, and oriented. She reports that she is feeling better than when she arrived. She reports that her cough is improved as well. She continues to require supplemental oxygen, however I am able to turn this down during our conversation. She reports no prior history of pulmonary diseases. Specifically, no reported history of asthma, COPD, recurrent pneumonia, recurrent bronchitis. 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 She does have a history of secondary smoke exposure from her . No other occupational exposures that she is aware of. Overall, patient reports feeling better other than her Cortes catheter which is an annoyance to her. Allergies Allergy/AdvReac Type Severity Reaction Status Date / Time doxycycline Allergy Unknown Unknown - Unverified 03/01/24 11:47 On file w/ [facility] lisinopril AdvReac Unknown Cough Verified 03/01/24 11:47 Home Medications Medication Instructions Recorded Confirmed Type omeprazole 20 mg capsule,delayed 20 mg PO QAM 02/18/23 03/01/24 History release simvastatin 10 mg tablet 10 mg PO HS 02/18/23 03/01/24 History aspirin 81 mg tablet,delayed 81 mg PO QAM #30 tabs 02/19/23 03/01/24 Rx release amlodipine 10 mg tablet (Norvasc) 10 mg PO QAM 05/06/23 03/01/24 History cholecalciferol (vitamin D3) 1,250 1,250 mcg PO WK 03/01/24 03/01/24 History mcg (50,000 unit) capsule Patient History Medical History History of COVID-19 06/2021 no hosp; resolved Anxiety Gout HX Surgical History Hx of cataract extraction Hx of colonoscopy Hx of arthroscopy of left knee S/P tonsillectomy and adenoidectomy History of cholecystectomy S/P right knee arthroscopy Family History Other Alzheimer disease Breast cancer Diabetes Heart disease Social History Smoking Status: Never smoker Second Hand Exposure: No; Do You Dip or Chew Tobacco: No; Hx Alcohol Use: No Hx Substance Use: No Preferred Language: Romanian Communication Ability: Effective Digital Computer Operator Required: No Beliefs That Will Affect Care: None Current Living Situation: Spouse Feels Safe at Home: Yes Safety Concerns: Feels Safe At This Time Assistive Devices: None Review of Systems Review of Systems: A complete 10 point review of systems was reviewed with the patient with pertinent positives and negatives as per history of present illness. All else were negative. Physical Exam Physical Exam: VITAL SIGNS Vital signs and nursing notes were reviewed. GENERAL 73-year-old female appearing her stated age who is in no acute distress. Communicates well with provider and answers questions appropriately. SKIN Without rashes or lesions. NOSE Midline and without cyanosis. MOUTH/OROPHARYNX Without perioral cyanosis. NECK Neck with FROM. LUNGS Chest wall evaluation demonstrates not chest wall A:P diameter. Auscultation reveals clear breath sounds bilaterally without wheezes, rales, or rhonchi appreciated. CARDIAC RRR with S1/S2. No murmur, rubs, or gallops appreciated. ABDOMEN Abdominal inspection demonstrates obese. BS normoactive all four quadrants. No tenderness, palpable masses, or ascites noted. EXTREMITIES Nail clubbing not present. No peripheral cyanosis. Not pretibial edema present. +3/5 radial palpated throughout. PSYCH A&Ox3 and cooperates fully with examiner. Pt is very pleasant and interacts well with examiner. Results & Data Results & Data Vital Signs (Past 12 Hours) Vital Signs Temp Pulse Pulse Resp BP Pulse Ox O2 Del Method 03/02/24 08:40 36.5 C 71 20 123/76 95 Nasal Cannula 03/02/24 07:07 Oxymask 03/02/24 06:45 96 Nasal Cannula 03/02/24 04:13 36.5 C 67 16 133/71 95 Oxymask 03/01/24 23:00 36.5 C 71 18 118/75 98 Oxymask 03/01/24 22:00 69 O2 Flow Rate 03/02/24 08:40 4 03/02/24 07:07 4 03/02/24 06:45 4 03/02/24 04:13 4 03/01/24 23:00 8 03/01/24 22:00 PG Care Time/CCT Total # of Minutes Spent Total Time Spent with Patient: Total time spent is greater than 50% in coordination of care (as documented) at patient's floor/unit and/or counseling patient: Coding Level of Care Code 32126 INT INP/OBS CARE 75MIN Diagnoses Hypoxia R09.02 COVID U07.1
[2024-03-02] MEDS: ASPIRIN 81 MG ECTAB PO SCH (09:25)
[2024-03-02] MEDS: PANTOprazole 40 MG TAB PO SCH (09:25)
[2024-03-02] MEDS: amLODIPine BESYLATE 5 MG TAB PO SCH (09:25)
[2024-03-02] MEDS: dexAMETHasone 6 MG in SYRINGE 0 ML IV SCH (09:26)
--- NOTE | 2024-03-02 10:47 | Nuclear Medicine Report ---
NM pul perfusion CLINICAL HISTORY: r/o PE based on echo Technique: Perfusion imaging was performed in multiple projections after the intravenous injection of 4.80 mCi of Tc-99m labeled macroaggregated albumin (MAA). Comparison: Comparison is made to CT chest 03/01/2024 FINDINGS/IMPRESSION: Nonsegmental filling defects are seen along the right major fissure and left lo wer lobe. In the absence of ventilation imaging, this represents an intermediate probability finding. If clinical concern remains, lower extremity Doppler and/or CTA chest can be performed. ACT 112: Negative or not required by law. Electronically signed by: Bill Carney M.D. 03/02/2024 10:45 AM
--- NOTE | 2024-03-02 11:28 | Cardiology Progress Note ---
Date of Service March 02, 2024 Assessment & Plan (1) COVID: (2) Acute respiratory failure with hypoxia and hypercapnia: (3) Stroke-like symptoms: (4) Elevated troponin: Plan Nuclear pulmonary perfusion imaging demonstrating intermediate probability of pulmonary embolus. Consider CTA of the chest for further evaluation. Continue IV heparin. Neurology evaluation pending regarding MRI findings of subacute/acute CVA. Elevated troponin in the setting of COVID-19 infection associated with hypoxia, and pulmonary edema. Patient without anginal symptoms. Repeat chest x-ray in a.m. 03/03/2024. I spent a total of 45 minutes on the date of service in preparation, delivery, and documentation of the care provided to this patient, excluding any time spent in the performance of separately billed services. Admission and Anticipated Discharge Date Admission Date: March 01, 2024 Subjective 73-year-old female seen and examined at the bedside. Notes mild cough with improved shortness of breath. Oxygen saturation 95% on 4 L. Denies chest pain or heaviness. MRI of the brain suggesting subacute to acute small, CVA. Denies visual changes, focal weakness, slurred speech, or paresthesias. No orthopnea, PND, or lower extremity edema. Review of Systems Review of Systems: All systems reviewed & are unremarkable except as noted in Subjective Physical Exam Constitutional: well nourished and + ill appearing; no acute distress Respiratory: normal respiratory effort; no respiratory distress Auscultation: + crackles Cardiovascular: Rate/Rhythm: regular rate and regular rhythm Heart Sounds: normal S1 and normal S2; no murmur Vessels: no JVD Extremities: no edema Gastrointestinal (Abdomen): Inspection/Auscultation: abdomen normal to inspect ion and normal bowel sounds; abdomen not distended Percussion/Palpation: abdomen soft; abdomen nontender, no guarding and abdomen not rigid Neurologic: CN's II-XI intact bilaterally and moves all extremities; no focal motor deficits Results & Data Vital Signs (Past 12 Hours) Vital Signs Temp Pulse Pulse Resp BP Pulse Ox O2 Del Method 03/02/24 11:05 66 03/02/24 08:40 36.5 C 71 20 123/76 95 Nasal Cannula 03/02/24 07:07 Oxymask 03/02/24 06:45 96 Nasal Cannula 03/02/24 04:13 36.5 C 67 16 133/71 95 Oxymask O2 Flow Rate 09/23/24 11:05 03/02/24 08:40 4 03/02/24 07:07 4 03/02/24 06:45 4 03/02/24 04:13 4 Laboratory Results Cardiac Enzymes 03/01/24 03/01/24 03/01/24 Range/Units 10:35 12:48 17:45 AST (13-39) U/L Troponin I High Sens 480.6 H* D 502.1 H* (0-14) pg/ml B-Natriuretic Peptide 965 H (0-100) pg/ml 03/02/24 Range/Units 01:58 AST 165 H (13-39) U/L Troponin I High Sens (0-14) pg/ml B-Natriuretic Peptide (0-100) pg/ml Coagulation 03/01/24 Range/Units 10:35 B-Natriuretic Peptide 965 H (0-100) pg/ml CBC 03/02/24 Range/Units 01:58 WBC 13.41 H (4.8-10.8) K/ul RBC 4.39 (4.20-5.40) M/uL Hgb 13.1 (12.0-16.0) g/dl Hct 39.2 (37.0-47.0) % Plt Count 286 (130-400) K/uL Neut # (Auto) 11.68 H (1.40-6.50) K/uL Lymph # (Auto) 0.63 L (1.20-3.40) K/uL [place] # (Auto) 1.02 H (0.11-0.59) K/uL Eos # (Auto) 0.00 (0.00-0.50) K/uL Baso # (Auto) 0.01 (0.00-0.20) K/uL Comprehensive Metabolic Panel 03/02/24 Range/Units 01:58 Sodium 137 (136-145) mmol/L Potassium 3.7 D (3.5-5.1) mmol/L Chloride 99 (98-107) mmol/L Carbon Dioxide 27 (21-32) mmol/L BUN 25 H (6-23) mg/dl Creatinine 1.17 D (0.6-1.2) mg/dl Glucose 142 H (70-99(Fasting)) mg/dl Calcium 9.0 (8.6-10.3) mg/dl AST 165 H (13-39) U/L ALT 218 H (7-52) U/L Alkaline Phosphatase 95 (34-104) U/L Total Protein 7.0 (6.0-8.3) gm/dl Albumin 4.0 (3.4-5.0) gm/dl Intake and Output 03/01/24 03/02/24 03/02/24 22:59 06:59 14:59 Intake Total 369.6 / 559.467 189.867 / 559.467 Output Total 850 / 850 Balance 369.6 / -290.533 -660.133 / -290.533 Intake: IV 369.6 / 559.467 189.867 / 559.467 Calcium Gluconate 1,000 mg In 60 / 60 60 ml @ 240 mls/hr IV Q15M [facility] Rx#:[id number] Heparin Sodium/Dextrose 25,000 9.6 / 199.467 189.867 / 199.467 units In 500 ml @ 800 UNITS/HR 16 mls/hr IV .Q24H [facility] Rx#: [id number] Remdesivir 200 mg In Sodium 250 / 250 Chloride 0.9% 210 ml @ 125 mls/ hr IV ONE ONE Rx#:[id number] cefTRIAXone SODIUM 2,000 mg In 50 / 50 50 ml @ 100 mls/hr IV Q24H [facility] Rx#:[id number] Output: Urine Amount (Catheter) 850 / 850 Cortes/Indwelling 850 / 850 Other: Weight 96.2 kg 96.2 kg Weight Measurement Method Built in [facility] in [facility]
--- NOTE | 2024-03-02 11:39 | Neurology Consultation ---
Date of Consultation March 02, 2024 Assessment & Plan (1) Stroke: Plan 73-year-old female presenting with recent COVID infection, respiratory failure, hypoxia, altered mental status, significantly improved. Found to have fairly symmetrical appearing punctate ischemic infarcts within the bilateral basal ganglia as well as the right centrum semiovale. The pattern of observed infarcts tend to favor a hypoxic/metabolic etiology. However, multifocal small ischemic infarcts in the context of COVID infection also possible. A cardioembolic etiology not completely excluded. Would continue with aspirin 81 mg/day. Would hold off on dual antiplatelet therapy as patient may have a pulmonary embolism and may require an oral anticoagulant. May continue with heparin in light of the possible pulmonary embolism as seen on VQ scan. Follow-up with pulmonology recommendations. No neurologic contraindication to an oral anticoagulant if required. Consider obtaining outpatient cardiac monitoring. Would check an up-to-date fasting lipid panel. Long-term LDL goal 70 or less. Current blood pressure appropriate. May allow for permissive hypertension acutely. Does not appear to have any deficits on neurological examination as a result of the observed acute infarcts. Patient does not require additional outpatient neurology follow-up. She should continue to follow with her PCP for ongoing monitoring of cardiovascular risk factors. Please call with any questions. History of Present Illness Reason for Consultation: stroke Requesting Physician: Lizy Attending Physician: Frank Medel MD History of Present Illness The patient is a 73-year-old female who presented to the emergency department yesterday after she was found by her in an altered fashion, staring, unresponsive, not speaking or moving her extremities or following commands. By the time she was evaluated in the emergency department she was apparently improved, alert and oriented to place. She was recently diagnosed with COVID and was hypoxic and treated with high flow nasal cannula. A CT of the head was negative for hemorrhage or acute process. A CT angiogram of the head and neck were negative for significant vascular abnormality. A brain MRI revealed a few small foci of restricted diffusion within the bilateral basal ganglia as well as another small focus of restricted diffusion within the right centrum semiovale. These findings are potentially consistent with acute to subacute infarcts although a metabolic, toxic etiology also possible given the symmetry of the basal ganglia signal abnormalities. I independently reviewed these images and agree with these findings. An electrocardiogram revealed a normal sinus rhythm. An echocardiogram revealed a borderline low EF, 50%, abnormal septal wall balance, left atrial size normal. The patient has been seen by cardiology regarding elevated troponin, likely due to recent COVID-19 infection and associated pulmonary edema and respiratory failure. Has been seen by pulmonology as well regarding hypoxia in the context of COVID. Possible pulmonary embolism on VQ scan. This morning, the patient denies any specific neurological complaint. She seems to be amnestic for her presenting symptoms. She denies headache, disturbance of vision or speech, no weakness or sensory loss. Allergies Allergy/AdvReac Type Severity Reaction Status Date / Time doxycycline Allergy Unknown Unknown - Unverified 03/01/24 11:47 On file w/ [facility] lisinopril AdvReac Unknown Cough Verified 03/01/24 11:47 Home Medications Medication Instructions Recorded Confirmed Type omeprazole 20 mg capsule,delayed 20 mg PO QAM 02/18/23 03/01/24 History release simvastatin 10 mg tablet 10 mg PO HS 02/18/23 03/01/24 History aspirin 81 mg tablet,delayed 81 mg PO QAM #30 tabs 02/19/23 03/01/24 Rx release amlodipine 10 mg tablet (Norvasc) 10 mg PO QAM 05/06/23 03/01/24 History cholecalciferol (vitamin D3) 1,250 1,250 mcg PO WK 03/01/24 03/01/24 History mcg (50,000 unit) capsule Patient History Medical History History of COVID-19 06/2021 no hosp; resolved Anxiety Gout HX Surgical History Hx of cataract extraction Hx of colonoscopy Hx of arthroscopy of left knee S/P tonsillectomy and adenoidectomy History of cholecystectomy S/P right knee arthroscopy Family History Other Alzheimer disease Breast cancer Diabetes Heart disease Social History Smoking Status: Never smoker Second Hand Exposure: No; Do You Dip or Chew Tobacco: No; Hx Alcohol Use: No Hx Substance Use: No Preferred Language: Serbian Communication Ability: Effective [place]ra [place]ta Setter Required: No Beliefs That Will Affect Care: None Current Living Situation: Spouse Feels Safe at Home: Yes Safety Concerns: Feels Safe At This Time Assistive Devices: None Review of Systems Constitutional: no fever, no chills, no body aches and no fatigue Eyes: no blind spots and no diplopia Ear, Nose, Mouth, Throat: + nasal congestion Respiratory: + dyspnea Cardiovascular: no chest pain and no palpitations Gastrointestinal: no nausea and no vomiting Genitourinary: no dysuria Musculoskeletal: no myalgia and no muscle weakness Integumentary: no rash and no lesions Neurologic: as per Subjective / HPI Psychiatric: no depression and no anxiety Hematologic / Lymphatic: no easy bleeding and no easy bruising Exam (Neuro) Constitutional: well developed and well nourished; no acute distress Eyes: normal visual miramontes by confrontation, PERRL and EOM intact bilaterally; no nystagmus Neurologic: Oriented to:: Person, Place and Time Memory: Short Term Intact and Remote Intact Attention: Span Intact and Concentration Intact Speech Fluency: negative Dysarthria or Dysfluency Speech Aphasia: negative Aphasia Fund of Knowledge: Current Events, Past History and Vocabulary Cranial Nerves: Normal II, III, IV, , V, VII, VIII, IX, X, XI and XII Motor Strength: Normal Lower Extremities and Normal Upper Extremities Motor Tone: Normal Lower Extremities and Normal Upper Extremities Muscle Bulk/Involuntary Movements: No Involuntary Movements; negative Muscle Atrophy Sensation: Light Touch Intact, Pain/Temperature Intact, Vibration Intact and Proprioception Intact Coordination: Normal; negative Limited Balance, Dysdiadochokinesia, Finger-Nose Abnormal or Heel-[place] Abnormal Deep Tendon Reflexes: Rt Triceps: 2+, Lt Triceps: 2+, Rt Biceps: 2+, Lt Biceps: 2+, Rt Brachioradialis: 2+, Lt Brachioradialis: 2+, Rt Patellar: 2+, Lt Patellar: 2+, Rt Ankle: 2+ and Lt Ankle: 2+ Special Tests: negative Babinski Present Details: Gait not tested Results & Data Vital Signs (Past 12 Hours) Vital Signs Temp Pulse Pulse Resp BP Pulse Ox O2 Del Method 03/02/24 11:05 66 03/02/24 08:40 36.5 C 71 20 123/76 95 Nasal Cannula 03/02/24 07:07 Oxymask 03/02/24 06:45 96 Nasal Cannula 03/02/24 04:13 36.5 C 67 16 133/71 95 Oxymask O2 Flow Rate 03/02/24 11:05 03/02/24 08:40 4 03/02/24 07:07 4 03/02/24 06:45 4 03/02/24 04:13 4 Laboratory Results WBC 13.41, hemoglobin 13.1, hematocrit 39.2, MCV 89.3, platelet count 286, sodium 137, potassium 3.7, BUN 25, creatinine 1.17, glucose 142, calcium 9.0, magnesium 2.0, AST 165, ALT 218, troponin 502, SARS-CoV-2 PCR positive. Coding Level of Care Code 29626 INT INP/OBS CARE 375MIN Diagnoses Stroke I63.9 Time Spent (min) 90 Comment Total time includes patient contact, chart review, counseling, note preparation
[2024-03-02] MEDS ORDERED: REMDESIVIR 100 MG in SODIUM CHLORIDE 0.9% 230 ML IV SCH (12:00)
[2024-03-02] MEDS: OPTIRAY 320 125ml IV ONE (13:46)
--- NOTE | 2024-03-02 14:02 | CT Scan Report ---
CT ANGIOGRAM OF THE CHEST CLINICAL HISTORY: Hypoxia. Respiratory failure. Abnormal perfusion scan. COMPARISON STUDY: Chest CT dated 03/01/2024. Nuclear pulmonary perfusion scan dated 03/02/2024. TECHNIQUE: Following the IV administration of 119 cc of Optiray 320, CT angiogram of the chest was pe rformed from the upper abdomen to the thoracic inlet utilizing the pulmonary embolus protocol. Images are reviewed in the axial, sagittal, and coronal planes. 3-D MIPS images are created and assessed. I V contrast was administered without complication. A dose lowering technique was utilized adhering to the principles of ALARA. FINDINGS: Thyroid: Imaged portions of the thyroid gland are normal in size and attenuation. Thoracic aorta: The thoracic aorta is normal in caliber and demonstrates standard 3-vessel arch anato my. No dissection is seen. Pulmonary vasculature: The main pulmonary arteries are mildly dilated suggesting pulmonary artery hyp ertension. There is pulmonary embolus within the left lower lobe pulmonary artery which extends into segmental branches. There is also segmental pulmonary embolus within the lingular pulmonary artery. S egmental and subsegmental pulmonary emboli are seen within branches of the right lower lobe pulmonary artery. A segmental pulmonary embolus is seen within a branch of the right middle lobe pulmonary art chuy, and there are subsegmental pulmonary emboli within branches of the right upper lobe pulmonary ar edyta. Heart: The heart is enlarged and without pericardial effusion. Lungs and pleural spaces: Evaluation of the lung parenchyma is degraded by motion artifact. There is no airspace consolidation typical for pneumonia. Scarring/atelectasis is seen at both lung bases. The re are trace pleural effusions with dependent atelectasis. No airspace consolidation is seen typical for pneumonia. Secretions are noted in the trachea. Mediastinum: There is no mediastinal lymphadenopathy. Sylvia: Clear. Axillae: There is no axillary lymphadenopathy. Upper abdomen: The gallbladder is surgically absent. There is a small hiatal hernia. Skeletal structures: The skeletal structures are osteopenic. No lytic or blastic bony lesions are see n. Degenerative change is noted in the shoulders and spine. IMPRESSION: 1. Bilateral pulmonary emboli as above. 2. Trace pleural effusions. 3. Cardiomegaly. 4. Additional findings as above. ACT 112: Negative or not required by law. Electronically signed by: Steven Cordoba M.D. 03/02/2024 2:01 PM
--- NOTE | 2024-03-02 14:22 | Ultrasound Report ---
ULTRASOUND BILATERAL LOWER EXTREMITY VENOUS CLINICAL HISTORY: Covid. Pulmonary embolus. COMPARISON STUDY: No priors. TECHNIQUE: Real-time, grayscale, and color Doppler sonography of the deep veins of the right and left lower extremity was performed from the inguinal crease to the calf. Compression and augmentation wer e utilized. FINDINGS: There is no sonographic evidence of deep venous thrombosis identified in the right or left lower extremity. The common femoral, superficial femoral, and popliteal veins are patent and normally compressible bilaterally. The greater saphenous vein and the profunda femoris vein at the junction w ith the common femoral vein are clear in both legs. The visualized calf veins are patent bilaterally. IMPRESSION: There is no sonographic evidence of deep venous thrombosis identified in the right or lef t lower extremity. ACT 112: Negative or not required by law. Electronically signed by: Steven Cordoba M.D. 03/02/2024 2:20 PM
--- NOTE | 2024-03-02 16:31 | Hospitalist Progress Note ---
Date of Service March 02, 2024 Assessment & Plan (1) Stroke-like symptoms: (2) Acute respiratory failure with hypoxia and hypercapnia: Plan Patient is a 73-year-old female with past medical history significant for Sjogren's, GERD, hypertension, hyperlipidemia, chronic allergies, osteoarthritis of the knee, chronic low back pain who presents for with concern for altered mental status and difficulty with speech and movement at home. Patient was a stroke alert on arrival. History obtained from patient's daughters at bedside. States that she has been having URI symptoms for the past week, went to urgent care yesterday. States she was diagnosed with COVID at that time patient's last known well was about 9 PM last night when she went to bed. Daughter states she checked on her this morning and noted she was unresponsive and staring into space, unable to move her extremities or follow other commands. daughter states at baseline she goes to the 4 times a week, still works, works as a nurse. Acute Hypoxic and hypercarbic Respiratory Failure Acute PE--POA COVID-19 infection Patient presenting as a stroke alert and in respiratory distress --Chest CTA:Bilateral pulmonary emboli. Trace pleural effusions. Cardiomegaly. --Venous Doppler:There is no sonographic evidence of deep venous thrombosis identified in the right or left lower extremity. --ECHO: EF 50%. Abnormal septal wall bones. Right ventricle is mild to moderately dilated. Right ventricle systolic function is mildly reduced. Mild tricuspid regurgitation. --Serology: +COVID 19, negative for influenza, RSV -- Normal lactate, procalcitonin levels --Elevated LFTs, troponins likely secondary to COVID-19 infection and demand ischemia Continue IV heparin --Wean off of supplemental oxygen as able Continue IV Decadron Empirically also on Rocephin Continue incentive spirometry Appreciate pulmonology input Acute metabolic encephalopathy likely multifactorial secondary to infection, hypoxia, CVA Acute CVA--POA --MRI Brain: Foci of restricted diffusion within the bilateral basal ganglia, as described above, with mild associated T2 hyperintensity. These favor subacute to acute infarcts, at least one of which may been present on MRI of February 18, 2023, therefore subacute time course is favored. This distribution raises the possibility of a metabolic/toxic etiology. Punctate 4 mm acute infarct within the right centrum semiovale ovale. No acute intracranial hemorrhage. No mass effect.. No intracranial mass or pathologic enhancement. --Head CTA: Exam significantly compromised by motion artifact. No large vessel occlusion. --Neck CTA:Exam significantly compromised by motion artifact. Major vessels within neck grossly patent. No definite stenoses identified. -- Lipid panel pending Continue aspirin, statin Also on IV heparin as above Appreciate neurology input Needs outpatient cardiac monitoring to rule out arrhythmias PT OT, speech eval Abnormal urinalysis Suspected UTI Urine culture pending Empirically on Rocephin Transaminitis Likely due to COVID-19, hepatic steatosis Liver USD:Unremarkable exam status post cholecystectomy. Suggestion of mild hepatic steatosis. Monitor LFTs Possible left kidney cyst USD: Indeterminate 1.4 cm hypoechoic focus in the mid to inferior pole left kidney renal sinus, possibly a complex cyst. Three-month follow-up renal ultraso und recommended. Incidental finding on ultrasound Follow-up as outpatient Elevated troponin Demand ischemia Echo as above Appreciate cardiology input Chronic diastolic heart failure Echo as above Appreciate cardiology input Lasix as needed Acute Kidney Injury Monitor renal function Avoid nephrotoxic agents as able Other chronic conditions Continue other home meds as able DVT Px: IV Heparin Code Status Full Code Admission and Anticipated Discharge Date Admission Date: March 01, 2024 Subjective Patient is seen and examined at bedside States having cough with some expectoration Dyspnea much better when compared to yesterday Denies any chest pain, nausea, vomiting, abdominal pain On IV heparin, no bleeding issues Review of Systems Review of Systems: All systems reviewed & are unremarkable except as noted in Subjective Physical Exam Physical Exam: Physical Exam: Vitals signs as noted above General Appearance obese,:no apparent distress Head: normocephalic, Atraumatic Eyes: normal inspection, EOMI Neck: supple, Trachea midline Respiratory/Chest: Normal breath sounds, minimal crackles, No accessory muscle use Cardiovascular: S1, S2, No murmur Abdomen/GI:Soft, Non tender, Bowel sounds present Extremities/Musculoskeletal:normal inspection, no edema Neurologic/Psych:AAOX3, grossly no focal neurological deficits Skin: normal color, warm Results & Data Results & Data Vital Signs (Past 12 Hours) Vital Signs Temp Pulse Pulse Resp BP Pulse Ox O2 Del Method 03/02/24 14:51 72 03/02/24 12:32 36.7 C 70 19 127/77 97 Nasal Cannula 03/02/24 11:05 66 03/02/24 08:40 36.5 C 71 20 123/76 95 Nasal Cannula 03/02/24 07:07 Oxymask 03/02/24 06:45 96 Nasal Cannula 03/02/24 04:13 36.5 C 67 16 133/71 95 Oxymask O2 Flow Rate 03/02/24 14:51 03/02/24 12:32 1 03/02/24 11:05 03/02/24 08:40 4 03/02/24 07:07 4 03/02/24 06:45 4 03/02/24 04:13 4 Laboratory Results Short CBC 03/02/24 Range/Units 01:58 WBC 13.41 H (4.8-10.8) K/ul Hgb 13.1 (12.0-16.0) g/dl Hct 39.2 (37.0-47.0) % Plt Count 286 (130-400) K/uL BMP 03/02/24 01:58 Sodium 137 Potassium 3.7 D Chloride 99 Carbon Dioxide 27 BUN 25 H Creatinine 1.17 D Glucose 142 H Calcium 9.0 Liver Function 03/02/24 Range/Units 01:58 Total Bilirubin 0.3 (0.2-1.0) mg/dl AST 165 H (13-39) U/L ALT 218 H (7-52) U/L Alkaline Phosphatase 95 (34-104) U/L Albumin 4.0 (3.4-5.0) gm/dl
[2024-03-03 08:09] LABS: Hematocrit (blood only) 40.3 % (37.0-47.0); Hemoglobin 13.5 g/dl (12.0-16.0); Mean Corpuscular Hemoglobin 29.7 pg (25.0-34.0); Mean Corpuscular Hgb Conc 33.5 g/dL (32.0-36.0); Mean Corpuscular Volume 88.6 fL (80.0-100.0); Mean Platelet Volume 10.2 fL (9.4-12.4); Platelet Count 297 K/uL (130-400); RDW Coefficient of Variation 12.8 % (11.5-14.5); RDW Standard Deviation 41.4 fL (36.4-46.3); Red Blood Count 4.55 M/uL (4.20-5.40); White Blood Count 11.89 K/ul (4.8-10.8)
[2024-03-03 08:33] LABS: Albumin Globulin Ratio 1.3 (0.9-2); Albumin Level 3.9 gm/dl (3.4-5.0); BUN Creatinine Ratio 29.8 (10-20); Bilirubin,Total 0.3 mg/dl (0.2-1.0); Calcium 8.8 mg/dl (8.6-10.3); Chol HDL Ratio 2.6 (0-5); Creatinine Clr Calc Pharmacy 66.5 ml/min; Est GFR (Non-African American) 69.9 ml/min; Globulin 3.1 gm/dl (2.5-4.0); Magnesium 2.2 mg/dl (1.7-2.4); Potassium 3.7 mmol/L (3.5-5.1)
[2024-03-03 08:35] LABS: ANTI-Xa, UFH(UnfractionatedHep 0.23 IU/ml (0.3-0.7)
--- NOTE | 2024-03-03 09:28 | Pulmonology Progress Note ---
Date of Service March 03, 2024 Assessment & Plan (1) Hypoxia: Plan: Multifactorial in a 73-year-old female with COVID-19 infection with appreciated bibasilar atelectasis noted on CT scan. Patient was on 1 L nasal cannula when I evaluated her. She was saturating 97%. Her oxygen was removed. She did start using incentive spirometry today. She has not been out of bed much at this time. CT findings with PE which would be contributing as well. Regardless, her symptoms have near completely resolved at this point. Would recommend performing two-step evaluation prior to time of discharge. (2) COVID: Plan: Conservative treatment as you are. Patient is well-appearing at this time. (3) Pulmonary emboli: Plan: Setting of COVID-19 infection. Certainly an interesting presentation as the patient was also with findings of CVA. Her venous Dopplers were negative of the lower extremities. At this point, patient is near symptomatically resolved at this point. Would recommend transitioning the patient to DOAC therapy. Current recommendations for DOAC therapy for thromboembolic process in the setting of COVID-19 infection would be for at least 3 months of anticoagulation. She will not require follow-up CTA in the outpatient setting. Consideration for follow- up echocardiogram given initial concerning findings on echocardiogram as well as elevated troponin and BNP. Will defer that to primary service and can be arranged in the outpatient setting obviously. Would not need to be completed until 3 months from now. Plan Thank you for allowing us to participate in the care of this pleasant patient. Pulmonary medicine will sign off at this time. Admission and Anticipated Discharge Date Admission Date: March 01, 2024 Supervising Physician Co-Signing Physician Notes Patient seen separately from the [facility]. Agree with the note as above. May need to consider hypercoagulable workup as an outpatient as well given stroke and PE. Most likely cause obviously is COVID-19, but her respiratory COVID-19 symptoms are quite mild. Recommend possible hematology evaluation. For now our recommendation is to continue DOAC therapy for 3 to 6 months. No need for antibiotics from pulmonary perspective at this time. She is significantly improved today and is likely stable for discharge home. On exam she is doing quite well. Her lung sounds are clear. She has no focal neurological deficits. Subjective Patient seen and evaluated bedside. She reports feeling much better at this time. She did start using the incentive spirometer earlier this morning. She offers no new complaints today. Review of Systems Review of Systems: A complete 10 point review of systems was reviewed with the patient with pertinent positives and negatives as per history of present illness. All else were negative. Physical Exam Physical Exam: VITAL SIGNS Vital signs and nursing notes were reviewed. GENERAL 73-year-old female appearing her stated age who is in no acute distress. Communicates well with provider and answers questions appropriately. SKIN Without rashes or lesions. NOSE Midline and without cyanosis. MOUTH/OROPHARYNX Without perioral cyanosis. NECK Neck with FROM. LUNGS Chest wall evaluation demonstrates not chest wall A:P diameter. Auscultation reveals clear breath sounds bilaterally without wheezes, rales, or rhonchi appreciated. CARDIAC RRR with S1/S2. No murmur, rubs, or gallops appreciated. ABDOMEN Abdominal inspection demonstrates obese. BS normoactive all four quadrants. No tenderness, palpable masses, or ascites noted. EXTREMITIES Nail clubbing not present. No peripheral cyanosis. Not pretibial edema present. +3/5 radial palpated throughout. PSYCH A&Ox3 and cooperates fully with examiner. Pt is very pleasant and interacts well with examiner. Results & Data Results & Data Vital Signs (Past 12 Hours) Vital Signs Temp Pulse Pulse Resp BP Pulse Ox O2 Del Method 03/03/24 08:44 36.5 C 68 20 145/82 H 95 Room Air 03/03/24 07:20 73 03/03/24 07:11 Nasal Cannula 03/03/24 04:12 36.8 C 66 18 135/82 94 Room Air 03/02/24 22:19 37 C 63 16 138/77 96 Nasal Cannula 03/02/24 21:45 63 O2 Flow Rate 03/03/24 08:44 03/03/24 07:20 03/03/24 07:11 1 03/03/24 04:12 03/02/24 22:19 1 03/02/24 21:45 PG Care Time/CCT Total # of Minutes Spent Total Time Spent with Patient: Total time spent is greater than 50% in coordination of care (as documented) at patient's floor/unit and/or counseling patient: Coding Level of Care Code 30245 SUB INP/OBS CARE 2/35MIN Diagnoses Hypoxia R09.02 COVID U07.1 Pulmonary emboli I26.99
[2024-03-03 15:33] LABS: ANTI-Xa, UFH(UnfractionatedHep 0.18 IU/ml (0.3-0.7)
--- NOTE | 2024-03-03 16:04 | Hospitalist Progress Note ---
Date of Service March 03, 2024 Assessment & Plan (1) Stroke-like symptoms: (2) Acute respiratory failure with hypoxia and hypercapnia: Plan Patient is a 73-year-old female with past medical history significant for Sjogren's, GERD, hypertension, hyperlipidemia, chronic allergies, osteoarthritis of the knee, chronic low back pain who presents for with concern for altered mental status and difficulty with speech and movement at home. Patient was a stroke alert on arrival. History obtained from patient's daughters at bedside. States that she has been having URI symptoms for the past week, went to urgent care yesterday. States she was diagnosed with COVID at that time patient's last known well was about 9 PM last night when she went to bed. Daughter states she checked on her this morning and noted she was unresponsive and staring into space, unable to move her extremities or follow other commands. daughter states at baseline she goes to the 4 times a week, still works, works as a nurse. Acute Hypoxic and hypercarbic Respiratory Failure Acute PE--POA COVID-19 infection Patient presenting as a stroke alert and in respiratory distress --Chest CTA:Bilateral pulmonary emboli. Trace pleural effusions. Cardiomegaly. --Venous Doppler:There is no sonographic evidence of deep venous thrombosis identified in the right or left lower extremity. --ECHO: EF 50%. Abnormal septal wall bones. Right ventricle is mild to moderately dilated. Right ventricle systolic function is mildly reduced. Mild tricuspid regurgitation. --Serology: +COVID 19, negative for influenza, RSV -- Normal lactate, procalcitonin levels --Elevated LFTs, troponins likely secondary to COVID-19 infection and demand ischemia Continue IV heparin>> transition to Eliquis --Weaned off of supplemental oxygen Continue IV Decadron Empirically also on Rocephin--will discontinue Continue incentive spirometry Appreciate pulmonology input Likely discharge tomorrow Acute metabolic encephalopathy likely multifactorial secondary to infection, hypoxia, CVA Acute CVA--POA --MRI Brain: Foci of restricted diffusion within the bilateral basal ganglia, as described above, with mild associated T2 hyperintensity. These favor subacute to acute infarcts, at least one of which may been present on MRI of February 18, 2023, therefore subacute time course is favored. This distribution raises the possibility of a metabolic/toxic etiology. Punctate 4 mm acute infarct within the right centrum semiovale ovale. No acute intracranial hemorrhage. No mass effect.. No intracranial mass or pathologic enhancement. --Head CTA: Exam significantly compromised by motion artifact. No large vessel occlusion. --Neck CTA:Exam significantly compromised by motion artifact. Major vessels within neck grossly patent. No definite stenoses identified. -- Lipid panel within normal limits. LDL 70 Continue aspirin, statin Also on Eliquis Appreciate neurology input Needs outpatient cardiac monitoring to rule out arrhythmias PT OT, speech eval UTI ruled out Urine culture negative Transaminitis Likely due to COVID-19, hepatic steatosis Liver USD:Unremarkable exam status post cholecystectomy. Suggestion of mild hepatic steatosis. Monitor LFTs Possible left kidney cyst USD: Indeterminate 1.4 cm hypoechoic focus in the mid to inferior pole left kidney renal sinus, possibly a complex cyst. Three-month follow-up renal ultrasound recommended. Incidental finding on ultrasound Follow-up as outpatient Elevated troponin Demand ischemia Echo as above Appreciate cardiology input Chronic diastolic heart failure Echo as above Appreciate cardiology input Lasix as needed Acute Kidney Injury Monitor renal function Avoid nephrotoxic agents as able Creatinine levels back to baseline Other chronic conditions Continue other home meds as able DVT Px: Eliquis Code Status Full Code Admission and Anticipated Discharge Date Admission Date: March 01, 2024 Subjective Patient is seen and examined at bedside States having minimal cough but otherwise feels well No dyspnea today Saturating well on room air No other complaints today Review of Systems Review of Systems: All systems reviewed & are unremarkable except as noted in Subjective Physical Exam Physical Exam: Physical Exam: Vitals signs as noted above General Appearance obese,:no apparent distress Head: normocephalic, Atraumatic Eyes: normal inspection, EOMI Neck: supple, Trachea midline Respiratory/Chest: Normal breath sounds, minimal crackles, No accessory muscle use Cardiovascular: S1, S2, No murmur Abdomen/GI:Soft, Non tender, Bowel sounds present Extremities/Musculoskeletal:normal inspection, no edema Neurologic/Psych:AAOX3, grossly no focal neurological deficits Skin: normal color, warm Results & Data Results & Data Vital Signs (Past 12 Hours) Vital Signs Temp Pulse Pulse Resp BP Pulse Ox O2 Del Method 03/03/24 12:20 36.6 C 70 17 144/75 H 96 Room Air 03/03/24 08:44 36.5 C 68 20 145/82 H 95 Room Air 03/03/24 07:20 73 03/03/24 07:11 Nasal Cannula 03/03/24 04:12 36.8 C 66 18 135/82 94 Room Air O2 Flow Rate 03/03/24 12:20 03/03/24 08:44 03/03/24 07:20 03/03/24 07:11 1 03/03/24 04:12 Laboratory Results Short CBC 03/03/24 Range/Units 07:43 WBC 11.89 H (4.8-10.8) K/ul Hgb 13.5 (12.0-16.0) g/dl Hct 40.3 (37.0-47.0) % Plt Count 297 (130-400) K/uL BMP 03/03/24 07:43 Sodium 141 Potassium 3.7 Chloride 102 Carbon Dioxide 29 BUN 25 H Creatinine 0.84 D Glucose 131 H Calcium 8.8 Liver Function 03/03/24 Range/Units 07:43 Total Bilirubin 0.3 (0.2-1.0) mg/dl AST 71 H (13-39) U/L ALT 171 H (7-52) U/L Alkaline Phosphatase 79 (34-104) U/L Albumin 3.9 (3.4-5.0) gm/dl
[2024-03-03] MEDS ORDERED: Nursing to Pharmacy Communication SCH (17:00)
[2024-03-03] MEDS: HEPARIN SOD (PORCINE) 1000 UNIT/ML IV STA (17:50)
[2024-03-03] MEDS: APIXABAN 5 MG TABLET PO SCH (18:33)
[2024-03-03] MEDS: HEPARIN--STOP ORDER ONE (18:44)
[2024-03-03] MEDS ORDERED: APIXABAN 5 MG TABLET PO SCH (21:00)
[2024-03-03] MEDS ORDERED: HEPARIN--STOP ORDER ONE (21:00)
[2024-03-04 08:22] LABS: Hematocrit (blood only) 41.3 % (37.0-47.0); Hemoglobin 13.9 g/dl (12.0-16.0); Mean Corpuscular Hemoglobin 29.6 pg (25.0-34.0); Mean Corpuscular Hgb Conc 33.7 g/dL (32.0-36.0); Mean Corpuscular Volume 88.1 fL (80.0-100.0); Mean Platelet Volume 9.9 fL (9.4-12.4); Platelet Count 329 K/uL (130-400); RDW Coefficient of Variation 12.6 % (11.5-14.5); RDW Standard Deviation 40.2 fL (36.4-46.3); Red Blood Count 4.69 M/uL (4.20-5.40); White Blood Count 9.41 K/ul (4.8-10.8)
[2024-03-04 08:36] LABS: Albumin Globulin Ratio 1.4 (0.9-2); Albumin Level 3.8 gm/dl (3.4-5.0); BUN Creatinine Ratio 25.3 (10-20); Bilirubin,Total 0.4 mg/dl (0.2-1.0); Calcium 8.7 mg/dl (8.6-10.3); Creatinine Clr Calc Pharmacy 67.3 ml/min; Est GFR (African American) 82.2 ml/min; Est GFR (Non-African American) 70.9 ml/min; Globulin 2.8 gm/dl (2.5-4.0); Magnesium 2.1 mg/dl (1.7-2.4); Potassium 3.7 mmol/L (3.5-5.1); Total Protein 6.6 gm/dl (6.0-8.3)
[2024-03-04 11:02] VITALS: O2SAT 97
[2024-03-04 13:08] VITALS: PULSE 88; RESP 18; TEMP 98.4
[2024-03-04 13:14] VITALS: BP 126/79
--- NOTE | 2024-03-04 15:31 | Discharge Summary ---
Date of Service March 04, 2024 Admission HPI Per Admitting Provider Patient is a 73-year-old female with past medical history significant for Sjogren's, GERD, hypertension, hyperlipidemia, chronic allergies, osteoarthritis of the knee, chronic low back pain who presents for with concern for altered mental status and difficulty with speech and movement at home. Patient was a stroke alert on arrival. History obtained from patient's daughters at bedside. States that she has been having URI symptoms for the past week, went to urgent care yesterday. States she was diagnosed with COVID at that time and symptomatic treatment was recommended. Patient's last known well was about 9 PM last night when she went to bed. Daughter states she checked on her this morning and noted she was unresponsive and staring into space, unable to move her extremities or follow other commands and unable to speak. Daughter states at baseline she goes to the 4 times a week, still works, works as a nurse. At the time of exam, patient was alert and oriented x 2. While she knew her name and where she was at [facility], she was unsure of the year and date. Per daughters at bedside this is abnormal. Patient states that she is not having any trouble breathing, denies chest pain or palpitations. She does note that her mouth is dry and per daughters this is consistent with her diagnosis of Sjogren's. daughters and patient agree that she is a full code at this time. Admission Exam Per Admitting Provider General: Alert, orientedx2 at . No acute distress Psych: Appropriate mood and affect Neuro: alert at time of exam, oriented x 2 HEENT: NC/AT, NC in nares CV: RRR Resp: Breath sounds decreased bilaterally, no increased effort of breathing at the time of exam, on hi vero oxygen Abdomen: Soft, nontender Extremities: edema in lower extremities bilaterally. Principal Diagnosis Acute CVA Bilateral PE Discharge Exam Constitutional: WD/WN, vitals as above, NAD, sitting up in bed, pleasant, conversing easily Respiratory: normal respiratory effort, lungs clear to auscultation, no wheeze, rales, rhonchi. Normal insp/exp effort, no accessory muscle use Cardiovascular: RRR, no murmur, no edema Vessels: no JVD or carotid bruit Chest: normal inspection of chest Abdomen: normal bowel sounds, soft, nontender, no hepatosplenomegaly Musculoskeletal: no cyanosis or clubbing, extremities motor strength 5/5 Skin: no rashes, warm and dry normal turgor Neurologic: PERRL, EOMI, accommodation nl, no face palsy, no dysarthria CN's II- XI intact bilaterally and moves all extremities Psychiatric: A+Ox3, euthymic affect Discharge Data Allergies Allergy/AdvReac Type Severity Reaction Status Date / Time doxycycline Allergy Unknown Unknown - Unverified 03/01/24 11:47 On file w/ [facility] lisinopril AdvReac Unknown Cough Verified 03/01/24 11:47 Consultations 03/01/24 11:30 ED Decision to Admit Stat 03/01/24 14:52 Consult Cardiology Routine Consult Pulmonology Routine 03/02/24 08:08 Consult Neurology Routine Ordered Studies 03/01/24 10:25 CT angio head w con Stat CT angio neck with con Stat CT head/brain wo con Stat 03/01/24 12:39 CT chest diagnostic wo con Urgent 03/01/24 13:13 US liver Urgent 03/01/24 14:52 MRI Brain [MR brain wo/w con] Urgent 03/02/24 10:54 US venous duplex leg [US venous doppler LE BI] Stat 03/02/24 11:39 CT angio chest PE protocol Urgent Hospital Course (1) Stroke-like symptoms: (2) Acute respiratory failure with hypoxia and hypercapnia: Plan Patient is a 73-year-old female with past medical history significant for Sjog santiago's, GERD, hypertension, hyperlipidemia, chronic allergies, osteoarthritis of the knee, chronic low back pain who presents for with concern for altered mental status and difficulty with speech and movement at home. Patient was a stroke alert on arrival.. Acute Hypoxic and hypercarbic Respiratory Failure Acute PE--POA COVID-19 infection Patient presenting as a stroke alert and in respiratory distress --Chest CTA on admission showed Bilateral pulmonary emboli. Trace pleural effusions. Cardiomegaly. --Venous Doppler:There is no sonographic evidence of deep venous thrombosis id entified in the right or left lower extremity. --ECHO: EF 50%. Abnormal septal wall bones. Right ventricle is mild to moderately dilated. Right ventricle systolic function is mildly reduced. Mild tricuspid regurgitation. --Serology: +COVID 19, negative for influenza, RSV Patient was treated with IV heparin initially. Pulmonology was consulted for comanagement. Patient was then transition over to Eliquis. Pulmonology recommends 3 to 6 months of anticoagulation. Patient will need hematology workup/referral as outpatient for evaluation of hypercoagulability disorder. Acute metabolic encephalopathy likely multifactorial secondary to infection, hypoxia, CVA Acute CVA--POA --MRI Brain: Foci of restricted diffusion within the bilateral basal ganglia, as described above, with mild associated T2 hyperintensity. These favor subacute to acute infarcts, at least one of which may been present on MRI of February 18, 2023, therefore subacute time course is favored. This distribution raises the possibility of a metabolic/toxic etiology. Punctate 4 mm acute infarct within the right centrum semiovale ovale. No acute intracranial hemorrhage. No mass effect.. No intracranial mass or pathologic enhancement. --Head CTA: Exam significantly compromised by motion artifact. No large vessel occlusion. --Neck CTA:Exam significantly compromised by motion artifact. Major vessels within neck grossly patent. No definite stenoses identified. -- Lipid panel within normal limits. LDL 70 Neurology was consulted for comanagement; patient to continue aspirin, Eliquis and statin. Patient did not have any focal neurological deficit at discharge. Please note the above document was generated using voice recognition software. It may contain grammatical, syntax or spelling errors. Any formal questions or concerns about the content, text or information contained within the body of this dictation should be directly addressed to the provider for clarification Total Time Total Time Spent Total Time Spent (In Minutes): 35 Total Time Includes: Examination of the Patient, Discharge Planning, Medication Reconciliation, Communication With Other Providers and Other Discharge Plan Discharge Items Patient Disposition: Home - Self-Care Reason For Visit: stroke like symptoms Discharge Diagnosis: Acute pulmonary embolism Acute CVA Activity: Resume your previous activity Non-emergency contact: Primary Care Provider Call non-emergency contact if: you have any medication questions and your symptoms worsen Follow-up/Referrals: Wendy Clay DO [Primary Care Provider] - (Date & Time 03/11/2024 8:50 AM Provider Wendy Clay DO Department Family Medicine [facility] ) Diet: Regular Addtl Attending Provider Instructions: You were admitted to the hospital due to COVID-19 infection. You are also found to have clots in your lung vessels as well as a stroke. You were evaluated by neurology and pulmonology during the hospitalization. You are prescribed Eliquis (blood thinner) for the blood clots in your lungs. Please take them as follows: 1) Take 10 mg( 2 tablets) twice a day for 7 days (until morning of March 09, 2024), then 2) Take 5 mg (1 tablet) twice a day starting evening of March 09. You will need to be on the blood thinner for 3 to 6 months. You will need hematology evaluation for hypercoagulable disorder as outpatient. Please obtain referral for hematology Pending Studies at Discharge: No Stand-Alone Forms: My [facility], Smoking Cessation Medications and DC Order Prescriptions: New Eliquis 5 mg Tablet 5 mg PO BID Qty: 74 0RF Continued omeprazole 20 mg capsule,delayed release(DR/EC) 20 mg PO QAM simvastatin 10 mg tablet 10 mg PO HS aspirin 81 mg Tablet,Delayed Release (Dr/Ec) 81 mg PO QAM Qty: 30 0RF Rx Instructions: Unable to verify OTC meds at this date/time. amlodipine [Norvasc] 10 mg Tablet 10 mg PO QAM cholecalciferol (vitamin D3) 1,250 mcg (50,000 unit) capsule 1,250 mcg PO WK Discharge Orders: Discharge Order (Routine); Ordered 03/04/24 Ordered By: Tobi Meza Admission Data Admit Date/Time: 03/01/24 11:39 Attending Provider: Tobi Meza Admit Provider: Gabbie Waters Primary Care Provider: Wendy Clay Other Providers: Tanya Escobar; Nikole Blount; Adeel Matias; Huang Hidalgo; Heriberto Smith; Ayla Gann; Demetrice Johnston; Amairani Ortega; Phill Fine Other Interventions: Discharge Summary Assessment (RN) Last Done: 03/04/24 13:13
--- NOTE | 2024-03-05 22:05 | Electrocardiogram Report ---
Test Reason : Blood Pressure : */* mmHG Vent. Rate : 87 BPM Atrial Rate : 87 BPM P-R Int : 158 ms QRS Dur : 86 ms QT Int : 380 ms P-R-T Axes : 5 9 10 degrees QTcB Int : 457 ms Normal sinus rhythm Possible Inferior infarct , age undetermined Abnormal ECG When compared with ECG of 18-Feb-2023 14:03, Vent. rate has increased by 37 bpm Confirmed by Joshua Nash ([id number]) on 03/05/2024 10:04:43 PM Referred By: REFERRED SELF Confirmed By: Joshua Nash
[2024-03-06] MEDS ORDERED: ERGOCALCIFEROL 1250 MCG (50,000 UNITS) CAP PO SCH (09:00)
== END 2024-03-04 15:29 | disposition home or self-care (01) | DRG 64 ==
LOC: ED 10:24 → SUATTDRO 11:39 → EDINP 11:39 → 4W 14:53